=== PATIENT | male | born 1990 | race Caucasian/White ===

== ENCOUNTER 2020-06-29 01:04 | Emergency (ER) | payer OTHER, SELFPAY ==
--- NOTE | 2020-06-29 01:25 | ED.URI ---
HPI - URI/Sore Throat General Chief Complaint: Upper Respiratory Symptoms Stated Complaint: Cough Time Seen by Provider: 06/29/20 01:25 Source: patient Mode of arrival: ambulatory Limitations: no limitations History of Present Illness HPI Narrative: This is a 30-year-old male who presents with complaints of cough and is an every day heavy smoker but denies any associated sore throat, fevers, chills, Shortness of breath, COVID-19 exposure. Related Data Allergies Allergy/AdvReac Type Severity Reaction Status Date / Time No Known Allergies Allergy Unverified 05/01/20 17:05 Review of Systems Review of Systems: Pertinent positives and negatives as stated in HPI and 10 point review of systems is otherwise negative [facility] Past Medical History Source: nursing notes reviewed Social History Social History Advance Directives: No Physical Exam Vital Signs: Vital Signs: Last Vital Signs Temp 98 F 06/29/20 01:40 Pulse 75 06/29/20 01:40 Resp 14 06/29/20 01:40 BP 123/76 06/29/20 01:40 Pulse Ox 99 06/29/20 01:40 Body Mass Index 23.0 VITAL SIGNS: Reviewed. GENERAL: Well developed, well nourished, in no acute distress. HEAD: Normocephalic/atraumatic, EYES: PERRLA, EOMI intact without pain, no nystagmus/pallor/icterus noted EARS: Ext canals without abnormality, TMs non-bulging and non-erythematous NOSE: Nares patent bilateral OROPHARYNX: no oral lesions noted, posterior pharynx clear and non-erythematous without noted tonsillar enlargement/erythema/exudates NECK: Supple, no adenopathy LUNGS: Normal breath sounds. No adventitious sounds or accessory muscle use. SpO2<99> CARDIOVASCULAR: Regular rate and rhythm without noted murmurs, no JVD or lower extremity edema. ABDOMEN: Soft, non-tender, non-distended with bowel sounds. No rigidity. No guarding. No palpable masses or hernias noted MUSCULOSKELETAL: No tenderness, deformities, or effusions noted on gross inspection. EXTREMITIES: No cyanosis, clubbing or edema. SKIN: Inspection of the skin reveals no rashes, ulcerations, jaundice, pallor, or petechiae. NEUROLOGIC: Alert and oriented x 4. Strength and sensation to light touch were grossly intact x 4. Course Course Course Narrative: This is a 30-year-old male with history and clinical presentation most likely non infectious bronchitis due to smoking history, however patient wishes to be swabbed for COVID-19 and this was performed. Patient was discharged as he was not experiencing any shortness of breath and was not observed to be febrile or hypoxic. Discharge Plan Discharge Clinical Impression: Cough Patient Disposition: Home, Self-Care Instructions: Chronic Cough (ED) Additional Instructions: You have been COVID-19 tested today and are required to self quarantine until you were called with the results. During this. You must self quarantine, again, and follow all state recommendations regarding COVID-19 testing. To treat any body aches and/or temperatures greater than 100.4 with [id number] Tylenol or ibuprofen as directed on the outside packaging. Continue to increase fluid hydration especially with water. The patient and/or family acknowledge understanding of results (as applicable), diagnosis, treatment plan, need for follow up, and symptoms that should prompt a return to the emergency room. Referrals: Physician,Unknown [Primary Care Provider] - 2 days Interventions: ED Discharge Assessment Last Done: 06/29/20 02:13 Discharge Date/Time: 06/29/20 02:13
[2020-06-29 01:40] VITALS: BP 123/76; PULSE 75; RESP 14; TEMP 36.6; O2SAT 99; BMI 23.0
== END 2020-06-29 02:13 | disposition home or self-care (01) ==
PROVIDERS: Emergency Provider Student in an Organized Health Care Education/Training Program
DX: R05 Cough (principal); Z20.828 Contact with and (suspected) exposure to other viral communicable diseases
CPT/HCPCS: 99283; U0003

== ENCOUNTER 2020-07-04 23:06 | Emergency (ER) | payer OTHER, SELFPAY ==
[2020-07-04 23:12] VITALS: BP 159/86; PULSE 83; RESP 16; TEMP 37; O2SAT 97; BMI 22.4
--- NOTE | 2020-07-05 00:04 | PC.NURSE ---
AT BEDSIDE SPEAKING WITH PATIENT.
--- NOTE | 2020-07-05 00:08 | ED_ITS ---
HPI - General Adult General Chief complaint: General Medical Stated complaint: NOSE BLEED Time Seen by Provider: 07/04/20 23:11 Source: patient Mode of arrival: ambulatory Limitations: no limitations History of Present Illness HPI narrative: 30-year-old male otherwise healthy, was seen recently for bronchitis like symptoms, patient has been having congested nose sneezing and coughing, for the past 2 days has been having mucus tinged with streaks of blood coming out of his nose, but no héctor bleeding from the nose, declined any trauma to the nose, patient was concerned because yesterday when he cleared his nose had coincide blood clots coming out from his nose, patient is not taking any medication in particular no blood thinners or aspirin. Patient otherwise has no symptoms. Related Data Previous Rx's Medication Instructions Recorded oxymetazoline [Afrin 2 spray INTRANASAL Q12H PRN 3 Days 07/05/20 (oxymetazoline)] #15 ml Allergies Allergy/AdvReac Type Severity Reaction Status Date / Time No Known Allergies Allergy Unverified 05/01/20 17:05 Review of Systems Review of Systems: All other systems are reviewed and are negative Constitutional: Reports as per HPI and Reports no additional constitutional complaints Eyes: Reports as per HPI and Reports no additional eye complaints Reports system reviewed and no additional complaints, except as documented Cardiovascular: Reports as per HPI and Reports no additional cardiovascular complaints Respiratory: Reports as per HPI and Reports no additional respiratory complaints Gastrointestinal: Reports as per HPI and Reports no additional gastrointestinal complaints Genitourinary: Reports no additional female genitourinary complaints Musculoskeletal: Reports no additional musculoskeletal complaints Skin/Breast: Reports system reviewed and no additional complaints, except as docu Psychiatric: Reports no additional psychiatric complaints Endocrine: Reports no additional endocrine complaints Hematologic/Lymphatic: Reports no additional hematologic/lymphatic complaints Allergic/Immunologic: Reports no additional allergic/immunologic complaints Reports system reviewed and no additional complaints, except as documented and Reports Abnormal speech present [facility] Social History Social History Advance Directives: No Physical Exam Vital Signs: Vital Signs: Last Vital Signs Temp 98.6 F 07/04/20 23:12 Pulse 83 07/04/20 23:12 Resp 16 07/04/20 23:12 BP 159/86 H 07/04/20 23:12 Pulse Ox 97 07/04/20 23:12 Body Mass Index 22.4 Vital signs have been reviewed as normal and appeared to be correct. Blood pressure on the high range. Heart rate normal. Respiration rate normal. Temperature normal. Oxygen saturation normal. Appearance: Alert. Oriented X3. No acute distress. Head: Normal external exam. Normocephalic. Atraumatic. No Salmon signs noted. No raccoon eyes noted Eyes: PERRLA. EOMI. Conjunctiva and sclera normal. Eyelids normal. ENT: EAC normal. TM's Normal. Pharynx normal. Uvula midline. Moist mucous membranes. No trismus noted. No drooling noted. No muffled voice noted. No blood, no dry blood, no blood clots in either nostril. Neck: Normal inspection. Neck supple. FROM. No adenopathy. Thyroid Normal. No meningeal signs. No neck mass noted. CVS: Normal heart rate and rhythm. Heart sound normal. No murmurs noted. Pulses normal throughout. Respiratory: No respiratory distress. Painless inspiration. Breath sounds normal. No wheezes/rales/rhonchi noted. Chest nontender. No accessory muscle usage noted or decreased air movement noted. Abdomen: Soft and nontender. Bowel sounds normal in all 4 quadrants. No distention noted. No organomegaly noted. No visible injury noted. Back: No CVA tenderness. Full range of motion noted. Skin: Skin warm and dry. Normal skin color. Normal skin turgor. No rashes/lesions/lacerations noted. Extremities: No lower extremity edema. Extremities exhibit normal range of motion. Extremities nontender. Neuro: Oriented X 3. No motor deficit. No sensory deficit. Reflexes normal. Medical Decision Making MDM Narrative Medical decision making narrative: 2 days of nasal congestion, patient had recent negative COVID testing. Will reassure, sent home on nasal decongestant. Discharge Plan Discharge Clinical Impression: Nasal congestion Patient Disposition: Home, Self-Care Instructions: Nosebleed (ED) Prescriptions: New Afrin (oxymetazoline) 0.05 % mist 2 spray intranasal Q12H PRN (Reason: nasal congestion) 3 Days Qty: 15 RF: 0 Referrals: Physician,None [Primary Care Provider] - 2 days
== END 2020-07-05 00:22 | disposition home or self-care (01) ==
PROVIDERS: Emergency Provider Emergency Medicine
DX: R09.81 Nasal congestion (principal); Z79.899 Other long term (current) drug therapy
CPT/HCPCS: 99283

== ENCOUNTER 2020-07-09 01:49 | Emergency (ER) | payer OTHER, SELFPAY ==
[2020-07-09 01:52] VITALS: BP 138/74; PULSE 69; RESP 16; TEMP 36; O2SAT 100; BMI 22.4
--- NOTE | 2020-07-09 02:43 | PC.NURSE ---
at bedside for primary eval.
--- NOTE | 2020-07-09 02:47 | ED_ITS ---
HPI - Dental/Oral General Chief complaint: Dental/Oral Stated complaint: DENTAL PAIN Time Seen by Provider: 07/09/20 02:45 Source: patient Mode of arrival: ambulatory History of Present Illness HPI Narrative: Patient states was eating something hard and cracked his tooth since then has been having pain. Approximately 1-2 days. Cannot wait for dentists open up in the morning and came to emergency department. MD Complaint: tooth pain Location: Tooth # (32) Onset (ago): day(s) Duration: constant Severity scale (1-10): 7 Relieving factors: nothing Related Data Previous Rx's Medication Instructions Recorded oxymetazoline [Afrin 2 spray INTRANASAL Q12H PRN 3 Days 07/05/20 (oxymetazoline)] #15 ml amoxicillin 500 mg PO BID #20 cap 07/09/20 tramadol 50 mg PO BID PRN #14 tab 07/09/20 Allergies Allergy/AdvReac Type Severity Reaction Status Date / Time No Known Allergies Allergy Verified 07/09/20 01:57 Review of Systems Review of Systems: Yes all other systems are reviewed and are negative Constitutional: Comments: Nontoxic-appearing PMFSH Past Medical History Medical History (Updated 07/09/20 @ 02:50 by Armin Phillips DO) Patient denies medical problems Family History Family History (Updated 07/09/20 @ 02:48 by Armin Phillips DO) Other Family history non-contributory Social History Social History (Updated 07/09/20 @ 02:48 by Armin Phillips DO) Household Members: Family Advance Directives: No Physical Exam Vital Signs: Vital Signs: Last Vital Signs Temp 96.8 F 07/09/20 01:52 Pulse 69 07/09/20 01:52 Resp 16 07/09/20 01:52 BP 138/74 07/09/20 01:52 Pulse Ox 100 07/09/20 01:52 Body Mass Index 22.4 HENMT: Teeth and gingiva: gingiva normal (Tooth cervical number 30 to cracked no erythema no bleeding no abscess), no bridges, no caries and no dentures Teeth image: 1. 2. MDM - Dental/Oral MDM Narrative Medical decision making narrative: 30-year-old with right dental pain no signs of abscess Discharge Plan Discharge Clinical Impression: Dental caries Patient Disposition: Home, Self-Care Instructions: Toothache (ED) Prescriptions: New amoxicillin 500 mg capsule 500 mg PO BID Qty: 20 RF: 0 tramadol 50 mg tablet 50 mg PO BID PRN (Reason: pain) Qty: 14 RF: 0 No Action Afrin (oxymetazoline) 0.05 % mist 2 spray intranasal Q12H PRN (Reason: nasal congestion) 3 Days Qty: 15 RF: 0 Referrals: [facility] [Provider Group] - 2 days Interventions: ED Discharge Assessment Last Done: 07/09/20 03:40 Discharge Date/Time: 07/09/20 03:42
[2020-07-09] MEDS: Amoxicillin 500 MG CAPSULE PO (02:54)
[2020-07-09] MEDS: traMADoL HCL 50 MG TABLET PO (02:54)
--- NOTE | 2020-07-09 02:54 | PC.NURSE ---
Pt medicated per EMAR, refusing Toradol at this time, states I can't do needles. aware.
== END 2020-07-09 03:42 | disposition home or self-care (01) ==
LOC: HO.ED 03:27
PROVIDERS: Emergency Provider Emergency Medicine
DX: K02.9 Dental caries, unspecified (principal); Z79.899 Other long term (current) drug therapy
CPT/HCPCS: 96372; 99283; 99284

== ENCOUNTER 2020-07-30 23:47 | Emergency (ER) | payer OTHER, SELFPAY ==
[2020-07-31 00:13] VITALS: BP 135/82; PULSE 76; RESP 16; TEMP 36.7; O2SAT 99; BMI 22.4
--- NOTE | 2020-07-31 00:36 | ED_ITS ---
HPI - Headache General Chief Complaint: Headache Stated Complaint: headache,dizziness Time Seen by Provider: 07/31/20 00:00 Source: patient Mode of arrival: ambulatory Limitations: no limitations History of Present Illness HPI Narrative: This is a 30-year-old male who presents with complaints of headache since running down the stairs and bumping his head on the wall without loss of consciousness on Tuesday but has continued to perform all daily activities without difficulties and denies any fevers, chills, neck stiffness, photosensitivity, speech/tearing/gait changes. In addition, patient stated that he was experiencing some sore throat and states that his girlfriend had strep throat approximately 1-2 weeks ago. Related Data Previous Rx's Medication Instructions Recorded oxymetazoline [Afrin 2 spray INTRANASAL Q12H PRN 3 Days 07/05/20 (oxymetazoline)] #15 ml amoxicillin 500 mg PO BID #20 cap 07/09/20 tramadol 50 mg PO BID PRN #14 tab 07/09/20 Allergies Allergy/AdvReac Type Severity Reaction Status Date / Time No Known Allergies Allergy Verified 07/09/20 01:57 Review of Systems Review of Systems: Pertinent positives and negatives as stated in the HPI and 10 point review of systems is otherwise negative. [facility] Past Medical History Source: nursing notes reviewed Medical History Patient denies medical problems Family History Family History Other Family history non-contributory Social History Social History Household Members: Family Alcohol intake: never Smoking Status: Never smoker Substance Use Type: Marijuana Substance Use Frequency: Occasionally Last Used Substance: Weeks (ago) Any prior treatment program specific to substance use: No Advance Directives: No Physical Exam Vital Signs: Vital Signs: Last Vital Signs Temp 98.0 F 07/31/20 00:13 Pulse 75 07/31/20 01:56 Resp 16 07/31/20 01:56 BP 110/71 07/31/20 01:56 Pulse Ox 98 07/31/20 01:56 Body Mass Index 22.4 VITAL SIGNS: Reviewed. GENERAL: Well developed, well nourished, in no acute distress. HEAD: Normocephalic/atraumatic, EYES: PERRLA, EOMI intact without pain, no nystagmus/pallor/icterus noted EARS: Ext canals without abnormality, TMs non-bulging and non-erythematous NOSE: Nares patent bilateral OROPHARYNX: no oral lesions noted, posterior pharynx clear and non-erythematous without noted tonsillar enlargement/erythema/exudates NECK: Supple, no adenopathy LUNGS: Normal breath sounds. No adventitious sounds or accessory muscle use. SpO2<99> CARDIOVASCULAR: Regular rate and rhythm without noted murmurs, no JVD or lower extremity edema. ABDOMEN: Soft, non-tender, non-distended with bowel sounds. No rigidity. No guarding. No palpable masses or hernias noted MUSCULOSKELETAL: No tenderness, deformities, or effusions noted on gross inspection. EXTREMITIES: No cyanosis, clubbing or edema. SKIN: Inspection of the skin reveals no rashes, ulcerations, jaundice, pallor, or petechiae. NEUROLOGIC: Alert and oriented x 4. Strength and sensation to light touch were grossly intact x 4, cerebellar testing is intact, steady gait, cranial nerves 2- 12 are grossly intact. Course Course Course Narrative: This is a 30-year-old male with history and clinical presentation consistent with headache without evidence of focal deficits or suggestion viral syndrome or bacterial infection. Doubt strep throat, but will swab. Patient provided with combination analgesics for headache. On re-evaluation patient has had symptomatic improvement of his headache and the rapid strep is negative. Discharge Plan Discharge Clinical Impression: Headache Qualifiers: Headache type: unspecified Headache chronicity pattern: acute headache Intractability: not intractable Qualified Code(s): R51.9 - Headache, unspecified Patient Disposition: Home, Self-Care Instructions: General Headache (ED) Additional Instructions: 1. Tylenol 1000 mg, orally, every 6 hours as needed for pain control. Do not exceed 4000 mg within 24 hours. 2. Ibuprofen 400 mg, orally with milk or food, every 6 hours as needed for pain control. 3. Increase fluid hydration especially with water. 4. Follow-up with your primary care provider for further evaluation and management. The patient and/or family acknowledge understanding of results (as applicable), diagnosis, treatment plan, need for follow up, and symptoms that should prompt a return to the emergency room. Prescriptions: No Action amoxicillin 500 mg capsule 500 mg PO BID Qty: 20 RF: 0 tramadol 50 mg tablet 50 mg PO BID PRN (Reason: pain) Qty: 14 RF: 0 Afrin (oxymetazoline) 0.05 % mist 2 spray intranasal Q12H PRN (Reason: nasal congestion) 3 Days Qty: 15 RF: 0 Referrals: Physician,None [Primary Care Provider] - 2 days
[2020-07-31] MEDS: Acetaminophen 325 MG TABLET 975 MG PO (01:35)
[2020-07-31] MEDS: Magnesium Hydrox/Alum Hydrox 30 ML ORAL.SUSP PO (01:36)
[2020-07-31] MEDS: Lidocaine HCl Viscous 2 % 15 ML SOLUTION 10 ML MUCOUS MEM (01:36)
[2020-07-31] MEDS: Ketorolac Tromethamine 15 MG/ML VIAL IM (01:37)
[2020-07-31 01:56] VITALS: BP 110/71; PULSE 75; RESP 16; O2SAT 98
[2020-07-31 02:00] VITALS: BP 114/60; PULSE 68; RESP 16; O2SAT 98
== END 2020-07-31 02:32 | disposition home or self-care (01) ==
PROVIDERS: Emergency Provider Student in an Organized Health Care Education/Training Program
DX: R51.9 Headache, unspecified (principal); R42 Dizziness and giddiness; F12.90 Cannabis use, unspecified, uncomplicated; Z79.899 Other long term (current) drug therapy
CPT/HCPCS: 87071; 87880; 96372; 99284; J1885

== ENCOUNTER 2020-08-24 19:08 | Emergency (ER) | payer OTHER, SELFPAY ==
[2020-08-24 19:31] VITALS: BP 138/78; PULSE 85; RESP 16; TEMP 37.1; O2SAT 100; BMI 23.0
[2020-08-24 20:00] VITALS: BP 123/87; PULSE 78; RESP 16; TEMP 37.2; O2SAT 98
--- NOTE | 2020-08-24 20:15 | PC.NURSE ---
pt refused covid and strep swab. you did this shit last time. Are you really not going to help me? pt educated on current standard of care for URI.
--- NOTE | 2020-08-24 20:46 | ED_ITS ---
HPI - General Adult General Chief complaint: General Medical Stated complaint: SORE THROAT Time Seen by Provider: 08/24/20 20:03 Source: patient Mode of arrival: ambulatory Limitations: no limitations History of Present Illness HPI narrative: 30-year-old male otherwise healthy presented with sore throat started few weeks ago, patient was seen in the emergency department 4 times before today's visit for similar symptoms, patient had negative COVID and negative rapid strep, patient still concerned that something else going on (patient searched on Google and suggested throat cancer). Patient refuse COVID testing and rapid strep testing today. Related Data Previous Rx's Medication Instructions Recorded oxymetazoline [Afrin 2 spray INTRANASAL Q12H PRN 3 Days 07/05/20 (oxymetazoline)] #15 ml amoxicillin 500 mg PO BID #20 cap 07/09/20 tramadol 50 mg PO BID PRN #14 tab 07/09/20 Allergies Allergy/AdvReac Type Severity Reaction Status Date / Time No Known Allergies Allergy Verified 07/09/20 01:57 Review of Systems Review of Systems: All other systems are reviewed and are negative Constitutional: Reports as per HPI and Reports no additional constitutional complaints Eyes: Reports as per HPI and Reports no additional eye complaints Reports system reviewed and no additional complaints, except as documented Cardiovascular: Reports as per HPI and Reports no additional cardiovascular complaints Respiratory: Reports as per HPI and Reports no additional respiratory complaints Gastrointestinal: Reports as per HPI and Reports no additional gastrointestinal complaints Genitourinary: Reports no additional female genitourinary complaints Musculoskeletal: Reports no additional musculoskeletal complaints Skin/Breast: Reports system reviewed and no additional complaints, except as docu Psychiatric: Reports no additional psychiatric complaints Endocrine: Reports no additional endocrine complaints Hematologic/Lymphatic: Reports no additional hematologic/lymphatic complaints Allergic/Immunologic: Reports no additional allergic/immunologic complaints Reports system reviewed and no additional complaints, except as documented and Reports Abnormal speech present [facility] Past Medical History Medical History Patient denies medical problems Family History Family History Other Family history non-contributory Social History Social History Household Members: Family Alcohol intake: never Smoking Status: Never smoker Substance Use Type: Marijuana Advance Directives: No Physical Exam Vital Signs: Vital Signs: Last Vital Signs Temp 98.8 F 08/24/20 19:31 Pulse 85 08/24/20 19:31 Resp 16 08/24/20 19:31 BP 138/78 08/24/20 19:31 Pulse Ox 100 08/24/20 19:31 Body Mass Index 23.0 Vital signs have been reviewed as normal and appeared to be correct. Blood pressure in the high range. Heart rate normal. Respiration rate normal. Temperature normal. Oxygen saturation normal. Appearance: Alert. Oriented X3. No acute distress. Head: Normal external exam. Normocephalic. Atraumatic. No Salmon signs noted. No raccoon eyes noted Eyes: PERRLA. EOMI. Conjunctiva and sclera normal. Eyelids normal. ENT: EAC normal. TM's Normal. Pharynx normal. Uvula midline. Moist mucous membranes. No trismus noted. No drooling noted. No muffled voice noted. Neck: Normal inspection. Neck supple. FROM. No adenopathy. Thyroid Normal. No meningeal signs. No neck mass noted. CVS: Normal heart rate and rhythm. Heart sound normal. No murmurs noted. Pulses normal throughout. Respiratory: No respiratory distress. Painless inspiration. Breath sounds normal. No wheezes/rales/rhonchi noted. Chest nontender. No accessory muscle usage noted or decreased air movement noted. Abdomen: Soft and nontender. Bowel sounds normal in all 4 quadrants. No distention noted. No organomegaly noted. No visible injury noted. Back: No CVA tenderness. Full range of motion noted. Skin: Skin warm and dry. Normal skin color. Normal skin turgor. No rashes/lesions/lacerations noted. Extremities: No lower extremity edema. Extremities exhibit normal range of motion. Extremities nontender. Neuro: Oriented X 3. No motor deficit. No sensory deficit. Reflexes normal. Course Course Course Narrative: 30-year-old male otherwise healthy had multiple ED visits for ENT related symptoms, patient was doing his Internet search which suggested throat cancer the patient, no family history of cancer. Plan is to reassure the patient and having patient to fully evaluated by ENT as an outpatient. Patient refused any further testing for COVID/strep throat today. Patient finished course of amoxicillin recently. Discharge Plan Discharge Clinical Impression: Acute sore throat Patient Disposition: Home, Self-Care Additional Instructions: Follow-up with ENT doctor, call the doctor and make an appointment as an outpatient. Prescriptions: No Action amoxicillin 500 mg capsule 500 mg PO BID Qty: 20 RF: 0 tramadol 50 mg tablet 50 mg PO BID PRN (Reason: pain) Qty: 14 RF: 0 Afrin (oxymetazoline) 0.05 % mist 2 spray intranasal Q12H PRN (Reason: nasal congestion) 3 Days Qty: 15 RF: 0 Referrals: Nick Foley [Physician] - 2 days
== END 2020-08-24 21:10 | disposition home or self-care (01) ==
PROVIDERS: Emergency Provider Emergency Medicine
DX: J02.9 Acute pharyngitis, unspecified (principal); Z79.899 Other long term (current) drug therapy; Z20.828 Contact with and (suspected) exposure to other viral communicable diseases
CPT/HCPCS: 99283; 99284

== ENCOUNTER 2020-09-24 09:47 | Emergency (ER) | payer OTHER, SELFPAY ==
[2020-09-24 11:19] VITALS: BP 128/76; PULSE 70; RESP 20; TEMP 37.3; O2SAT 98; BMI 23.7
--- NOTE | 2020-09-24 11:55 | ED_ITS ---
HPI - Dental/Oral General Chief complaint: Dental/Oral Stated complaint: DENTAL PAIN Source: patient Mode of arrival: ambulatory Limitations: no limitations History of Present Illness HPI Narrative: Patient presents to ED for right upper molar pain. Patient states his right upper molar is cracked and needs to be extracted. Patient has appointment with dentist next week Tuesday. Patient states slight upper facial swelling. Patient states no fever or chills. Related Data Previous Rx's Medication Instructions Recorded oxymetazoline [Afrin 2 spray INTRANASAL Q12H PRN 3 Days 07/05/20 (oxymetazoline)] #15 ml amoxicillin 500 mg PO BID #20 cap 07/09/20 tramadol 50 mg PO BID PRN #14 tab 07/09/20 amoxicillin-pot clavulanate 1 tab PO Q12H 10 Days #20 tab 09/24/20 [Augmentin] naproxen 500 mg PO BID PRN #20 tab 09/24/20 oxycodone-acetaminophen [Percocet] 1 tab PO TID PRN #9 tab 09/24/20 Allergies Allergy/AdvReac Type Severity Reaction Status Date / Time No Known Allergies Allergy Verified 07/09/20 01:57 Review of Systems Review of Systems: Yes all other systems are reviewed and are negative Constitutional: Constitutional: Reports as per HPI and Reports no additional constitutional complaints Eyes: Eyes: Reports as per HPI and Reports no additional eye complaints ENT: Reports system reviewed and no additional complaints, except as documented and Reports as per HPI Comments: Dental pain Cardiovascular: Cardiovascular: Reports as per HPI and Reports no additional cardiovascular complaints Respiratory: Respiratory: Reports as per HPI and Reports no additional respiratory complaints Gastrointestinal: Gastrointestinal: Reports as per HPI and Reports no additional gastrointestinal complaints Genitourinary: Genitourinary: Reports no additional male genitourinary complaints and Reports as per HPI Musculoskeletal: Musculoskeletal: Reports no additional musculoskeletal complaints and Reports as per HPI Integumentary/Breasts: Skin/Breast: Reports system reviewed and no additional complaints, except as docu and Reports as per HPI Neurologic: Reports system reviewed and no additional complaints, except as documented and Reports as per HPI Psychiatric: Psychiatric: Reports no additional psychiatric complaints and Reports as per HPI PMF Past Medical History Medical History Patient denies medical problems Family History Family History Other Family history non-contributory Social History Social History Household Members: Family Alcohol intake: unknown Smoking Status: Current every day smoker Smoked in Last 30 Days: No Use of substances other than those prescribed or required for medical reasons: No Substance Use Type: Marijuana Advance Directives: No Advance Directives Information Provided: No Physical Exam Vital Signs: Vital Signs: Last Vital Signs Temp 99.1 F 09/24/20 11:19 Pulse 70 09/24/20 11:19 Resp 20 09/24/20 11:19 BP 128/76 09/24/20 11:19 Pulse Ox 98 09/24/20 11:19 Body Mass Index 23.7 Const: General: cooperative, healthy appearing, comfortable, no acute distress, well developed, alert and awake Orientation/consciousness: patient oriented x3 HENMT: Other: Right upper molar 5. Is cracked with some yellow collection. Negative for gum swelling or redness. Patient does have other teeth with poor dentition and sticking. Face negative for mass on palpation, redness, fluctulance, or obvious swelling. tonsils negative for erythema, exudates, or signs of peritonsillar absecss. negative for neck swelling. uvula is midline. Head: Yes normal to inspection, Yes No palpable skull fracture present, Yes normocephalic and Yes atraumatic Teeth and gingiva: dentures and poor dentition (Multiple tooth with decay. Right upper molar tooth 5 is cracked.) Eyes: General: appearance normal, both eyes and all related structures Neck: Neck: Yes normal visual inspection, Yes no lymphadenopathy, Yes no meningeal signs, Yes trachea midline and No tender Chest: Chest palpation & inspection: normal inspection of the chest and normal palpation of entire chest wall Resp: Effort & Inspection: normal respiratory effort and able to speak in complete sentences Auscultation: clear to auscultation bilaterally Cardio: Jugular venous distension: no JVD Heart sounds: S1 normal heart sound present and S2 normal heart sound present GI: Inspection: Yes normal to inspection Palpation (GI): Soft to palpation, not firm, nontender, no guarding and not rigid : General: No CVA tenderness and Yes no CVA tenderness Back/Spine/Pelvis: Back: no CVA tenderness, No CVA tenderness and No back tenderness Skin: General skin exam: no rashes or lesions noted and elasticity normal Neuro: General: patient oriented x3, no meningeal signs and CN's II-XI intact bilaterally Cranial nerves: Yes CN's II-XII intact bilaterally Extrem: General: Yes normal to inspection and Yes full ROM Psych: Appearance: grossly normal, well kempt and not disheveled Course Course Course Narrative: Patient has cracked tooth that will need to be extracted. Patient given pain medication here Reevaluation(s) Reevaluation #1: Patient discharged with pain medication and antibiotics. Patient informed to follow-up with his dentist for extraction. Negative for signs of gum abscess. Negative for signs of peritonsillar abscess. Negative for signs of facial abscess. Time: 12:02 MDM - Dental/Oral MDM Narrative Medical decision making narrative: Right cracked tooth. Dental pain Discharge Plan Discharge Clinical Impression: Toothache, Cracked tooth Patient Disposition: Home, Self-Care Instructions: Toothache (ED) Additional Instructions: Return to the ED immediately for any drooling, severe pain, worsening facial swelling, or any other concerning symptoms. Please follow-up with the dentist for extraction. Do not take Percocet at work or while driving. Side effect of drowsiness Prescriptions: New amoxicillin-pot clavulanate [Augmentin] 875-125 mg tablet 1 tab PO Q12H 10 Days Qty: 20 RF: 0 naproxen 500 mg tablet 500 mg PO BID PRN (Reason: pain) Qty: 20 RF: 0 oxycodone-acetaminophen [Percocet] 5-325 mg tablet 1 tab PO TID PRN (Reason: pain (scale score 7-10)) Qty: 9 RF: 0 No Action amoxicillin 500 mg capsule 500 mg PO BID Qty: 20 RF: 0 tramadol 50 mg tablet 50 mg PO BID PRN (Reason: pain) Qty: 14 RF: 0 Afrin (oxymetazoline) 0.05 % mist 2 spray intranasal Q12H PRN (Reason: nasal congestion) 3 Days Qty: 15 RF: 0 Stand Alone Forms: Work/School Release Interventions: ED Discharge Assessment Last Done: 09/24/20 12:16 Discharge Date/Time: 09/24/20 12:17 Print Language: Romanian
[2020-09-24] MEDS: oxyCODONE HCl Immed Release 5 MG TABLET PO (12:05)
== END 2020-09-24 12:17 | disposition home or self-care (01) ==
PROVIDERS: Emergency Provider Emergency Medicine Emergency Medical Services
DX: K08.89 Other specified disorders of teeth and supporting structures (principal); K03.81 Cracked tooth; F17.210 Nicotine dependence, cigarettes, uncomplicated
CPT/HCPCS: 99283

== ENCOUNTER 2020-11-09 17:56 | Emergency (ER) | payer OTHER, SELFPAY ==
[2020-11-09 18:15] VITALS: BP 137/61; PULSE 70; RESP 18; TEMP 36.7; O2SAT 98; BMI 24.4
--- NOTE | 2020-11-09 20:28 | ED.DENTAL ---
HPI - Dental/Oral General Chief complaint: Dental/Oral Stated complaint: dental pain Time Seen by Provider: 11/09/20 20:28 History of Present Illness HPI Narrative: Patient complains of both left and right dental pain after multiple teeth were extracted on both sides last week, he was given some pain meds but they ran out, he denies fever chills he has no difficulty breathing or swallowing no swelling under the tongue, he is taking an antibiotic and can follow with his dentist Related Data Previous Rx's Medication Instructions Recorded oxymetazoline [Afrin 2 spray INTRANASAL Q12H PRN 3 Days 07/05/20 (oxymetazoline)] #15 ml amoxicillin 500 mg PO BID #20 cap 07/09/20 tramadol 50 mg PO BID PRN #14 tab 07/09/20 amoxicillin-pot clavulanate 1 tab PO Q12H 10 Days #20 tab 09/24/20 [Augmentin] naproxen 500 mg PO BID PRN #20 tab 09/24/20 oxycodone-acetaminophen [Percocet] 1 tab PO TID PRN #9 tab 09/24/20 oxycodone-acetaminophen [Percocet] 1 tab PO Q4-6H PRN #14 tab 11/09/20 Allergies Allergy/AdvReac Type Severity Reaction Status Date / Time No Known Allergies Allergy Verified 07/09/20 01:57 Review of Systems Review of Systems: Positive for dental pain Negatives are no fever no chills no dizziness no weakness no numbness no difficulty breathing or swallowing no headache no skin rash PMFSH Past Medical History Source: nursing notes reviewed Medical History Patient denies medical problems Family History Family History Other Family history non-contributory Social History Social History Household Members: Family Alcohol intake: never Smoking Status: Current every day smoker Smoked in Last 30 Days: No Substance Use Type: Marijuana Any prior treatment program specific to substance use: No Advance Directives: No Advance Directives Information Provided: Yes Physical Exam Vital Signs: Vital Signs: Last Vital Signs Temp 98.1 F 11/09/20 18:15 Pulse 70 11/09/20 18:15 Resp 18 11/09/20 18:15 BP 137/61 11/09/20 18:15 Pulse Ox 98 11/09/20 18:15 Body Mass Index 24.4 General appearance no acute distress, and cooperative but uncomfortable The dental exam is there is no trismus there is no swelling under the tongue there is no impairment of breathing or swallowing there is no fluctuant gum abscess the sutures are in place over the sites of dental extraction, no bleeding Pharynx is clear Neck is supple Respiratory no distress Extremities no rash Course Course Course Narrative: Patient is given a prescription for Percocet and advised to follow with his dentist and continue the antibiotic Discharge Plan Discharge Clinical Impression: Pain, dental Patient Disposition: Home, Self-Care Additional Instructions: Continue your antibiotic Follow with her dentist Return any concerns Prescriptions: New oxycodone-acetaminophen [Percocet] 5-325 mg tablet 1 tab PO Q4-6H PRN (Reason: pain) Qty: 14 RF: 0 No Action amoxicillin 500 mg capsule 500 mg PO BID Qty: 20 RF: 0 tramadol 50 mg tablet 50 mg PO BID PRN (Reason: pain) Qty: 14 RF: 0 Afrin (oxymetazoline) 0.05 % mist 2 spray intranasal Q12H PRN (Reason: nasal congestion) 3 Days Qty: 15 RF: 0 amoxicillin-pot clavulanate [Augmentin] 875-125 mg tablet 1 tab PO Q12H 10 Days Qty: 20 RF: 0 naproxen 500 mg tablet 500 mg PO BID PRN (Reason: pain) Qty: 20 RF: 0 oxycodone-acetaminophen [Percocet] 5-325 mg tablet 1 tab PO TID PRN (Reason: pain (scale score 7-10)) Qty: 9 RF: 0 Interventions: ED Discharge Assessment Last Done: 11/09/20 20:44 Discharge Date/Time: 11/09/20 21:13
== END 2020-11-09 21:13 | disposition home or self-care (01) ==
PROVIDERS: Emergency Provider Emergency Medicine Emergency Medical Services; PCP Internal Medicine
DX: K08.89 Other specified disorders of teeth and supporting structures (principal); F17.200 Nicotine dependence, unspecified, uncomplicated; Z71.6 Tobacco abuse counseling; Z79.899 Other long term (current) drug therapy
CPT/HCPCS: 99284

== ENCOUNTER 2021-07-19 09:53 | Emergency (ER) | payer OTHER, SELFPAY ==
[2021-07-19 11:10] VITALS: BP 137/76; PULSE 78; RESP 18; TEMP 36.7; O2SAT 98; BMI 27.1
[2021-07-19 11:39] LABS: IDNOW Serial# 9DD0AD1C; Strep A Nucleic Acid Negative (Negative)
[2021-07-19 11:41] LABS: COVID-19 Test Negative (Negative)
== END 2021-07-19 11:59 | disposition left against medical advice (07) ==
LOC: HO.ED 11:59
PROVIDERS: Emergency Provider Emergency Medicine
DX: J02.9 Acute pharyngitis, unspecified (principal); Z20.822 Contact with and (suspected) exposure to COVID-19
CPT/HCPCS: 36415; 87635; 87651; 99282; 99283

== ENCOUNTER 2021-08-15 10:56 | Emergency (ER) | payer OTHER, SELFPAY ==
--- NOTE | ~2021-08-15 | XR_ITS ---
EXAMINATION: XR CHEST CLINICAL INFORMATION: Cough, chest pain. COMPARISON: Chest radiographs dated 10/31/2018. TECHNIQUE: Frontal view of the chest was obtained. FINDINGS: No significant abnormality is noted involving the heart, lungs, mediastinum, bony thorax or soft tissues. XR/XR chest 1V IMPRESSION: No acute cardiopulmonary process.
[2021-08-15 12:35] VITALS: BP 132/83; PULSE 63; RESP 18; TEMP 36.8; O2SAT 100; BMI 27.1
[2021-08-15 13:42] LABS: COVID-19 Test Positive (Negative); IDNOW Serial# 9DD0AD1C
--- NOTE | 2021-08-15 13:56 | ED_ITS ---
HPI - URI/Sore Throat General Chief Complaint: Upper Respiratory Symptoms Stated Complaint: dehydrated chest pain Time Seen by Provider: 08/15/21 13:56 Source: patient Mode of arrival: ambulatory Limitations: no limitations History of Present Illness HPI Narrative: 31 yo male with no medical history presents to the ER with intermittent sharp chest pains, dry cough, headache, body aches for the last 2 days. He feels ?dehydrated? because his urine is darker than usual this morning. He is not vomiting or having diarrhea. He is eating and drinking normally. He denies any dysuria or blood in his urine. He reports some mild shortness of breath when he is walking around but none at rest. He denies any fevers at home. His girlfriend and children are also home with similar symptoms. He is on vaccinated for COVID-19. MD elicited complaint: cough and other (Body aches) Onset (ago): day(s) (2) Consistency: intermittent Severity: moderate Description of mucous: clear Able to tolerate fluids by mouth: Yes Exacerbating factors: exertion Relieving factors: nothing Context: sick contacts Associated symptoms: myalgias, diaphoresis, headache, nasal congestion, cough, chest pain and shortness of breath Treatments prior to arrival: none Related Data Previous Rx's Medication Instructions Recorded oxymetazoline 0.05 % nasal mist 2 spray INTRANASAL Q12H PRN 3 Days 07/05/20 (Afrin (oxymetazoline)) #15 ml amoxicillin 500 mg capsule 500 mg PO BID #20 cap 07/09/20 tramadol 50 mg tablet 50 mg PO BID PRN #14 tab 07/09/20 amoxicillin 875 mg-potassium 1 tab PO Q12H 10 Days #20 tab 09/24/20 clavulanate 125 mg tablet (Augmentin) naproxen 500 mg tablet 500 mg PO BID PRN #20 tab 09/24/20 oxycodone-acetaminophen 5 mg-325 1 tab PO TID PRN #9 tab 09/24/20 mg tablet (Percocet) oxycodone-acetaminophen 5 mg-325 1 tab PO Q4-6H PRN #14 tab 11/09/20 mg tablet (Percocet) Allergies Allergy/AdvReac Type Severity Reaction Status Date / Time No Known Allergies Allergy Verified 08/15/21 12:35 Review of Systems Review of Systems: Constitutional: No Fever, No Chills ENT/Mouth: No sore throat, No Rhinorrhea, No Swallowing Difficulty Eyes: No Redness Cardiovascular: + Chest Pain, + SOB, No Orthopnea, No Edema Respiratory: + Cough, No Sputum, No Wheezing, No dyspnea Gastrointestinal: No Nausea, No Vomiting, No Diarrhea, No abdominal Pain Genitourinary: No Dysuria, No Urinary Frequency, No Hematuria Musculoskeletal: No joint pain, No Myalgias Skin: No Skin Lesions, No rash Neuro: + Weakness, No Dizziness, No Headache Heme/Lymph: No Lymphadenopathy PMFSH Past Medical History Medical History Patient denies medical problems Family History Family History Other Family history non-contributory Social History Social History Household Members: Family Alcohol intake: never Substance Use Type: Marijuana Advance Directives: No Advance Directives Information Provided: No Physical Exam Vital Signs: Vital Signs: Last Vital Signs Temp 98.2 F 08/15/21 12:35 Pulse 63 08/15/21 12:35 Resp 18 08/15/21 12:35 BP 132/83 08/15/21 12:35 Pulse Ox 100 08/15/21 12:35 BMI result Body Mass Index 27.1 Appearance: Alert. Oriented X3. No acute distress. Eyes: Pupils equal, round and reactive to light. ENT: Pharynx normal. Moist mucous membranes Neck: Normal inspection. Neck supple. CVS: Normal heart rate and rhythm. Pulses normal. Respiratory: No respiratory distress. Breath sounds normal. Skin: Skin warm and dry. Normal skin color. Normal skin turgor. No rashes. Extremities: No lower extremity edema. Normal inspection, normal range of motion x4. Neuro: Oriented X 3. Grossly normal, nonfocal Course Course Course Narrative: 31-year-old otherwise healthy male who is on backs of her COVID-19 presents with intermittent chest pains with dry cough, headaches, body aches. On arrival he appears nontoxic and is vital signs are within normal limits with a SpO2 100% on room air. His lungs are clear on exam. His chest x- ray is normal and his COVID-19 rapid antigen test is positive. Patient counseled on his diagnosis and symptomatic management. Stable for discharge home with supportive care. MDM - URI/Sore Throat Lab Data Labs: Lab Results 08/15/21 Range/Units 12:41 COVID-19 ([facility]) Positive A (Negative) COVID-19 Clin Com See Note Critical Care Time Critical Care Time Critical Care Time: No Discharge Plan Discharge Clinical Impression: COVID-19 Patient Disposition: Home, Self-Care Instructions: Covid-19 Viral Syndrome and Novel Coronavirus (ED) Hey/Ath Additional Instructions: You were found to be COVID-19 POSITIVE today. Your chest x-ray and oxygen levels were normal. Rest. Drink plenty of fluids. Do not go out in public for the next 7 days. If your symptoms are resolved after 7 days you may go back to work but wear a mask. Take over the counter cold/flu medications as needed for your symptoms. Take Tylenol and/or Motrin as needed for fevers and body aches. Follow up with your doctor as needed. If you shortness of breath worsens , if you develop difficulty breathing or any other concerning symptom come back to the ER for further evaluation. Prescriptions: No Action amoxicillin 500 mg capsule 500 mg PO BID Qty: 20 RF: 0 tramadol 50 mg tablet 50 mg PO BID PRN (Reason: pain) Qty: 14 RF: 0 Afrin (oxymetazoline) 0.05 % mist 2 spray intranasal Q12H PRN (Reason: nasal congestion) 3 Days Qty: 15 RF: 0 amoxicillin-pot clavulanate [Augmentin] 875-125 mg tablet 1 tab PO Q12H 10 Days Qty: 20 RF: 0 naproxen 500 mg tablet 500 mg PO BID PRN (Reason: pain) Qty: 20 RF: 0 oxycodone-acetaminophen [Percocet] 5-325 mg tablet 1 tab PO TID PRN (Reason: pain (scale score 7-10)) Qty: 9 RF: 0 oxycodone-acetaminophen [Percocet] 5-325 mg tablet 1 tab PO Q4-6H PRN (Reason: pain) Qty: 14 RF: 0 Stand Alone Forms: Work/School Release
== END 2021-08-15 14:17 | disposition home or self-care (01) ==
PROVIDERS: Emergency Provider Emergency Medicine
DX: U07.1 COVID-19 (principal); R07.9 Chest pain, unspecified; E86.0 Dehydration; R05.9 Cough, unspecified; R06.02 Shortness of breath; F12.90 Cannabis use, unspecified, uncomplicated; Z79.899 Other long term (current) drug therapy
CPT/HCPCS: 36415; 71045; 87635; 99282; 99283

== ENCOUNTER 2021-08-23 10:47 | Emergency (ER) | payer OTHER, SELFPAY ==
--- NOTE | 2021-08-23 | ECG_ITS ---
Test Reason : chest pain Blood Pressure : / mmHG Vent. Rate : 044 BPM Atrial Rate : 044 BPM P-R Int : 158 ms QRS Dur : 084 ms QT Int : 434 ms P-R-T Axes : -06 -23 -04 degrees QTc Int : 371 ms Marked sinus bradycardia Minimal voltage criteria for LVH, may be normal variant ( R in aVL ) Abnormal ECG When compared with ECG of 09-JUN-2005 13:40, Rate is lower Referred By: Generic ED Physician Electronically Signed By:WILFRED SIM
--- NOTE | ~2021-08-23 | XR_ITS ---
EXAMINATION: XR CHEST CLINICAL INFORMATION: Covid with chest pain. COMPARISON: None TECHNIQUE: 2 views of the chest were obtained. FINDINGS: No significant abnormality is noted involving the heart, lungs, mediastinum, bony thorax or soft tissues. XR/XR chest 2V IMPRESSION: Unremarkable chest examination.
[2021-08-23 11:11] VITALS: BP 123/81; PULSE 75; RESP 18; TEMP 36.4; O2SAT 97; BMI 26.8
[2021-08-23 13:22] LABS: MANUAL DIFF FLAG NO
[2021-08-23 13:27] LABS: Basophils Percent Auto 0.2 % (0-2); Eosinophils Absolute Auto 0.1 X10*3/uL (0.0-0.4); Eosinophils Percent Auto 1.4 % (0-4); Hematocrit 42.6 % (42.0-52.0); Hemoglobin 15.5 g/dl (14.0-18.0); Imm Gran Abs Auto 0.01 X10*3/uL (0.00-0.03); Imm Gran Pct Auto 0.2 % (0.0-0.4); Lymphocytes Absolute Auto 1.3 X10*3/uL (1.2-4.9); Mean Corpuscular HGB Conc 36.4 g/dl (31.0-36.0); Mean Corpuscular Hemoglobin 32.8 pg (27.0-33.0); Mean Corpuscular Volume 90.1 fL (80.0-98.0); Monocytes Absolute Auto 0.4 X10*3/uL (0.1-1.2); Monocytes Percent Auto 8.9 % (2-11); Neutrophils Absolute Auto 3.1 x10*3/uL (2.0-8.3); Neutrophils Percent Auto 62.3 % (45-73); Platelet Count 138 X10*3/uL (160-400); Red Blood Count 4.73 X10*6/uL (4.60-5.80); Red Cell Distribution Width 11.3 % (11.0-16.0); White Blood Count 4.9 X10*3/uL (4.8-10.8)
[2021-08-23 13:38] LABS: Calcium 9.7 mg/dL (8.4-10.2)
[2021-08-23 13:42] LABS: D Dimer High Sensitivity < 150 NG/ML
[2021-08-23 13:49] LABS: Alanine Aminotransferase 19 U/L (0-40); Albumin Level 4.8 g/dL (3.5-5.0); Alkaline Phosphatase 67 U/L (39-117); Anion Gap 9 (12-20); Aspartate Amino Transferase 15 U/L (5-37); Bilirubin Total 1.2 mg/dL (0.0-1.0); Blood Urea Nitrogen 10 mg/dL (9-16); Calcium 9.6 mg/dL (8.4-10.2); Carbon Dioxide 30 mmol/L (22-29); Chloride 106 mmol/L (96-108); Creatinine Clr Calc Pharmacy 119.8; Estimated Glomerular Filt Rate > 60; Glucose Random 104 mg/dL (60-115); Lactate Dehydrogenase 146 U/L (118-273); Lipase 18 U/L (8-78); Magnesium 1.9 mg/dL (1.6-2.6); Potassium 4.2 mmol/L (3.3-5.1); Sodium 141 mmol/L (135-145); Total Protein 7.2 g/dL (6.5-8.0)
[2021-08-23 13:53] LABS: Troponin-I High Sensitivity < 3.5 ng/L (<3.5-35.0)
[2021-08-23 14:02] LABS: Procalcitonin < 0.02 ng/mL
[2021-08-23 14:04] LABS: Ferritin 308 ng/mL (20-250)
--- NOTE | 2021-08-23 14:07 | ED_ITS ---
HPI - Chest Pain General Chief Complaint: Chest Pain Stated Complaint: Chest pain Time Seen by Provider: 08/23/21 12:36 Source: patient Mode of arrival: ambulatory Limitations: no limitations History of Present Illness HPI narrative: 31-year-old male who tested positive for COVID on 08/15/2021 who is not vaccinated to COVID presenting to the ED with complaints of cough with yellow/green colored sputum with intermittent sharp left-sided chest pain/epigastric abdominal pains for the past few days. He denies any fevers, chills, dizziness, headache, neck pain/stiffness, trouble swallowing or breathing, coughing up blood, vomiting blood, dyspnea on exertion, orthopnea, palpitations, lower extremity edema or calf tenderness, nausea/vomiting/diarrhea constipation, weakness or any other symptoms complaints or concerns at this time. Denies any drug uses such as cocaine. MD complaint: chest pain Pertinent past history: asthma and other (See above) Onset (ago): day(s) Timing of current episode: episodic Prior episodes: No Onset: other (Cannot recall) Pain location: substernal and left chest Pain radiation: none Severity: mild Quality: sharp Relieving factors: nothing Exacerbating factors: nothing Context: recent illness (Positive for COVID) Associated symptoms: cough Treatment prior to arrival: none Risk Factors Coronary artery disease risk factors: none Thoracic aortic dissection risk factors: none Related Data Previous Rx's Medication Instructions Recorded oxymetazoline 0.05 % nasal mist 2 spray INTRANASAL Q12H PRN 3 Days 07/05/20 (Afrin (oxymetazoline)) #15 ml amoxicillin 500 mg capsule 500 mg PO BID #20 cap 07/09/20 tramadol 50 mg tablet 50 mg PO BID PRN #14 tab 07/09/20 amoxicillin 875 mg-potassium 1 tab PO Q12H 10 Days #20 tab 09/24/20 clavulanate 125 mg tablet (Augmentin) naproxen 500 mg tablet 500 mg PO BID PRN #20 tab 09/24/20 oxycodone-acetaminophen 5 mg-325 1 tab PO TID PRN #9 tab 09/24/20 mg tablet (Percocet) oxycodone-acetaminophen 5 mg-325 1 tab PO Q4-6H PRN #14 tab 11/09/20 mg tablet (Percocet) albuterol sulfate 90 mcg/actuation 1 inh INHALATION QID PRN #8.5 g 08/23/21 aerosol inhaler azithromycin 250 mg tablet See Rx Instructions .ROUTE 08/23/21 .COMPLEX #6 tab codeine 10 mg-guaifenesin 100 mg/5 5 ml PO Q6H PRN #120 ml 08/23/21 mL oral liquid (Guaifenesin AC) Allergies Allergy/AdvReac Type Severity Reaction Status Date / Time No Known Allergies Allergy Verified 08/15/21 12:35 Review of Systems Review of Systems: Constitutional : No Weight loss, No Fever, No Chills, No Night Sweats, No Fatigue, No Malaise ENT/Mouth : No Hearing loss, No Ear Pain, No Nasal Congestion, No Sinus Pain, No Hoarseness, No sore throat, No Rhinorrhea, No Swallowing Difficulty Eyes: No Eye Pain, No Swelling, No Redness, No Foreign Body, No Discharge, No Vision Changes Cardiovascular : + Chest Pain, + SOB, No Dyspnea on Exertion, No Orthopnea, No Edema, No Palpitations Respiratory : + Cough, + Sputum, No Wheezing, No Smoke Exposure, + Dyspnea Gastrointestinal : No Nausea, No Vomiting, No Diarrhea, No Constipation, No abd ominal Pain, No Hematochezia, No Melena Genitourinary : no irregular bleeding, No Dysuria, No Urinary Frequency, No Hematuria, No Urinary Incontinence, No Urgency, No Flank Pain, No Urinary Flow Changes, No Hesitancy Musculoskeletal : No joint pain, No Myalgias, No Joint Swelling Skin : No Skin Lesions, No rash Neuro : No Weakness, No Numbness, No Paresthesias, No Loss of Consciousness, No Dizziness, No Headache Psych : No Anxiety/Panic, No Depression, No SI/HI/AH/VH, No Social Issues, Heme/Lymph: No Bruising, No Bleeding,No Lymphadenopathy Endocrine : No Polyuria, No Polydipsia, No Temperature Intolerance Yes all other systems are reviewed and are negative [facility] Past Medical History Attestation statement: The following information was validated with the patient. Medical History Patient denies medical problems Family History Family History Other Family history non-contributory Social History Social History Household Members: Family Alcohol intake: unknown Use of substances other than those prescribed or required for medical reasons: Unknown Substance Use Type: Marijuana Advance Directives: No Advance Directives Information Provided: No Physical Exam Vital Signs: Vital Signs: Last Vital Signs Temp 97.5 F 08/23/21 11:11 Pulse 75 08/23/21 11:11 Resp 18 08/23/21 11:11 BP 123/81 08/23/21 11:11 Pulse Ox 97 08/23/21 11:11 BMI result Body Mass Index 26.8 vital signs have been reviewed as normal and appeared to be correct. Blood pressure normal. Heart rate normal. Respiration rate normal. Temperature normal. Oxygen saturation normal. Appearance: Alert. Oriented X3. No acute distress. Head: Normal external exam. Normocephalic. Atraumatic. Eyes: PERRLA. EOMI. Conjunctiva and sclera normal. Eyelids normal. ENT: EAC normal. TM's Normal. Pharynx normal. Uvula midline. Moist mucous membranes. No trismus noted. No drooling noted. No muffled voice noted. Neck: Normal inspection. Neck supple. FROM. No adenopathy. Thyroid Normal. No meningeal signs. No neck mass noted. CVS: Normal heart rate and rhythm. Heart sound normal. Pulses normal throughout. No murmurs/rales/gallops. Respiratory: No respiratory distress. Painless inspiration. Breath sounds normal. No wheezes/rales/rhonchi noted. Chest nontender. No accessory muscle usage noted or decreased air movement noted. Abdomen: Soft and nontender. Bowel sounds normal in all 4 quadrants. No di stention noted. No organomegaly noted. No visible injury noted. Back: No CVA tenderness. Full range of motion noted. No rashes/lesion/induration/fluctuance or signs of infection noted. Skin: Skin warm and dry. Normal skin color. Normal skin turgor. No rashes/lesions/lacerations noted. Extremities: No lower extremity edema. No calf tenderness is noted. Extremities exhibit normal range of motion. Extremities nontender. Neuro: Oriented X 3. No motor deficit. No sensory deficit. Reflexes normal. Normal steady gait. No focal neuro deficits noted. Vascular: + radial pulses/+ 2 distal pedal pulses/+2 dorsalis pedis b/l. Normal cap refill. No cyanosis noted to upper extremity nails and lower extremity toes nails. Course Course Course Narrative: 31-year-old male who tested positive for COVID on 08/15/2021 who is not vaccinated to COVID presenting to the ED with complaints of cough with yellow/green colored sputum with intermittent sharp left-sided chest pain/epigastric abdominal pains for the past few days. He denies any fevers, chills, dizziness, headache, neck pain/stiffness, trouble swallowing or breathing, coughing up blood, vomiting blood, dyspnea on exertion, orthopnea, palpitations, lower extremity edema or calf tenderness, nausea/vomiting/diarrhea constipation, weakness or any other symptoms complaints or concerns at this time. Denies any drug uses such as cocaine. Labs obtained and patient has a low platelet count at 138. D-dimer is less than 150 which is negative. Ferritin 308. Total bilirubin 1.2. Otherwise all other labs are within normal limits including troponin. Chest x-ray is within normal limits no acute processes are noted. EKG is marked sinus bradycardia with a ventricular rate of 44 with minimal voltage criteria for LVH no acute ischemic changes are noted. Similar compared to prior EKG 06/09/2005. Therefore at this time will DC home with antibiotics for possible bronchitis and instructions to continue self isolating due to his COVID and to return if any new or worsening symptoms. Patient understands agrees with this plan. MDM - Chest Pain Medical Records Data Attestation: I reviewed the patient's medical records. Lab Data Attestation: I reviewed the patient's lab results. Result diagrams: 08/23/21 13:17 08/23/21 13:17 Labs: Lab Results 08/23/21 08/23/21 08/23/21 Range/Units 13:17 13:17 13:17 WBC 4.9 (4.8-10.8) X10*3/uL RBC 4.73 (4.60-5.80) X10*6/uL Hgb 15.5 (14.0-18.0) g/dl Hct 42.6 (42.0-52.0) % MCV 90.1 (80.0-98.0) fL MCH 32.8 (27.0-33.0) pg MCHC 36.4 H (31.0-36.0) g/dl RDW 11.3 (11.0-16.0) % Plt Count 138 L (160-400) X10*3/uL MPV 11.0 (9.4-12.4) fL Immature Gran % (Auto) 0.2 (0.0-0.4) % Neut % (Auto) 62.3 (45-73) % Lymph % (Auto) 27.0 (20-40) % [place] % (Auto) 8.9 (2-11) % Eos % (Auto) 1.4 (0-4) % Baso % (Auto) 0.2 (0-2) % Lymph # (Auto) 1.3 (1.2-4.9) X10*3/uL [place] # (Auto) 0.4 (0.1-1.2) X10*3/uL Eos # (Auto) 0.1 (0.0-0.4) X10*3/uL Baso # (Auto) 0.0 (0.0-0.2) X10*3/uL Abs Immat Gran (auto) 0.01 (0.00-0.03) X10*3/uL Absolute Neuts (auto) 3.1 (2.0-8.3) x10*3/uL Absolute Nucleated RBC 0.000 (0.0-0.012) X10*3/uL Nucleated RBC % (auto) 0.0 (0.0-0.2) /100WBC D-Dimer High Sensitivty < 150 NG/ML Sodium 141 (135-145) mmol/L Potassium 4.2 (3.3-5.1) mmol/L Chloride 106 (96-108) mmol/L Carbon Dioxide 30 H (22-29) mmol/L Anion Gap 9 L (12-20) BUN 10 (9-16) mg/dL Creatinine 0.98 (0.5-1.4) mg/dL Estim Creat Clear Calc 119.8 Estimated GFR > 60 Random Glucose 104 (60-115) mg/dL Calcium 9.6 (8.4-10.2) mg/dL Magnesium 1.9 (1.6-2.6) mg/dL Ferritin (20-250) ng/mL Total Bilirubin 1.2 H (0.0-1.0) mg/dL AST 15 (5-37) U/L ALT 19 (0-40) U/L Alkaline Phosphatase 67 (39-117) U/L Lactate Dehydrogenase 146 (118-273) U/L Troponin I High Sens (<3.5-35.0) ng/L Total Protein 7.2 (6.5-8.0) g/dL Albumin 4.8 (3.5-5.0) g/dL Lipase 18 (8-78) U/L Procalcitonin ng/mL 08/23/21 08/23/21 08/23/21 Range/Units 13:17 13:17 13:17 WBC (4.8-10.8) X10*3/uL RBC (4.60-5.80) X10*6/uL Hgb (14.0-18.0) g/dl Hct (42.0-52.0) % MCV (80.0-98.0) fL MCH (27.0-33.0) pg MCHC (31.0-36.0) g/dl RDW (11.0-16.0) % Plt Count (160-400) X10*3/uL MPV (9.4-12.4) fL Immature Gran % (Auto) (0.0-0.4) % Neut % (Auto) (45-73) % Lymph % (Auto) (20-40) % [place] % (Auto) (2-11) % Eos % (Auto) (0-4) % Baso % (Auto) (0-2) % Lymph # (Auto) (1.2-4.9) X10*3/uL [place] # (Auto) (0.1-1.2) X10*3/uL Eos # (Auto) (0.0-0.4) X10*3/uL Baso # (Auto) (0.0-0.2) X10*3/uL Abs Immat Gran (auto) (0.00-0.03) X10*3/uL Absolute Neuts (auto) (2.0-8.3) x10*3/uL Absolute Nucleated RBC (0.0-0.012) X10*3/uL Nucleated RBC % (auto) (0.0-0.2) /100WBC D-Dimer High Sensitivty NG/ML Sodium (135-145) mmol/L Potassium (3.3-5.1) mmol/L Chloride (96-108) mmol/L Carbon Dioxide (22-29) mmol/L Anion Gap (12-20) BUN (9-16) mg/dL Creatinine (0.5-1.4) mg/dL Estim Creat Clear Calc Estimated GFR Random Glucose (60-115) mg/dL Calcium 9.7 (8.4-10.2) mg/dL Magnesium (1.6-2.6) mg/dL Ferritin 308 H (20-250) ng/mL Total Bilirubin (0.0-1.0) mg/dL AST (5-37) U/L ALT (0-40) U/L Alkaline Phosphatase (39-117) U/L Lactate Dehydrogenase (118-273) U/L Troponin I High Sens < 3.5 (<3.5-35.0) ng/L Total Protein (6.5-8.0) g/dL Albumin (3.5-5.0) g/dL Lipase (8-78) U/L Procalcitonin < 0.02 ng/mL Imaging Data Chest x-ray: Attestation: I personally reviewed and interpreted this imaging study as follows: Radiologist's impression: FINDINGS: No significant abnormality is noted involving the heart, lungs, mediastinum, bony thorax or soft tissues. XR/XR chest 2V IMPRESSION: Unremarkable chest examination. ECG Data ECG #1: Attestation: I personally reviewed and interpreted this ECG as follows: ECG interpretation date: 08/23/21 ECG interpretation time: 11:52 Interpretation: EKG is marked sinus bradycardia with a ventricular rate of 44 with minimal voltage criteria for LVH no acute ischemic changes are noted. Similar compared to prior EKG 06/09/2005. Discharge Plan Discharge Clinical Impression: COVID-19, Atypical chest pain, Bronchitis Patient Disposition: Home, Self-Care Instructions: Acute Bronchitis (ED), Noncardiac Chest Pain (ED), COVID-19 (Coronavirus Disease 2019) (ED) Prescriptions: New albuterol sulfate 90 mcg/actuation HFA aerosol inhaler 1 inh inhalation QID PRN (Reason: shortness of breath or wheezing) Qty: 8.5 RF: 0 azithromycin 250 mg tablet See Rx Instructions .ROUTE .COMPLEX Qty: 6 RF: 0 codeine-guaifenesin [Guaifenesin AC] 10-100 mg/5 mL liquid 5 ml PO Q6H PRN (Reason: cold symptoms) Qty: 120 RF: 0 No Action amoxicillin 500 mg capsule 500 mg PO BID Qty: 20 RF: 0 tramadol 50 mg tablet 50 mg PO BID PRN (Reason: pain) Qty: 14 RF: 0 Afrin (oxymetazoline) 0.05 % mist 2 spray intranasal Q12H PRN (Reason: nasal congestion) 3 Days Qty: 15 RF: 0 amoxicillin-pot clavulanate [Augmentin] 875-125 mg tablet 1 tab PO Q12H 10 Days Qty: 20 RF: 0 naproxen 500 mg tablet 500 mg PO BID PRN (Reason: pain) Qty: 20 RF: 0 oxycodone-acetaminophen [Percocet] 5-325 mg tablet 1 tab PO TID PRN (Reason: pain (scale score 7-10)) Qty: 9 RF: 0 oxycodone-acetaminophen [Percocet] 5-325 mg tablet 1 tab PO Q4-6H PRN (Reason: pain) Qty: 14 RF: 0 Referrals: Physician,Unknown J [Primary Care Provider] - 2 days (your pcp) Stand Alone Forms: Work/School Release Print Language: Bruneian
== END 2021-08-23 14:44 | disposition home or self-care (01) ==
PROVIDERS: Physician Assistant Medical; Emergency Provider Internal Medicine
DX: U07.1 COVID-19 (principal); R07.89 Other chest pain; J40 Bronchitis, not specified as acute or chronic; F12.90 Cannabis use, unspecified, uncomplicated
CPT/HCPCS: 36415; 71046; 80053; 82310; 82728; 83615; 83690; 83735; 84145; 84484; 85025; 85379; 93005; 99283; 99284

== ENCOUNTER 2021-10-30 12:38 | Emergency (ER) | payer OTHER, SELFPAY ==
--- NOTE | ~2021-10-30 | CT_ITS ---
EXAMINATION: CT HEAD WITHOUT CONTRAST CLINICAL INFORMATION: Headache. Vomiting. COMPARISON: None TECHNIQUE: Contiguous axial imaging was performed from the skull base to vertex without intravenous administration of contrast. Coronal and sagittal reformatted images are performed at CT scanner This CT examination was performed using dose optimization techniques as appropriate, variously including the following: *Automated exposure control *Adjustment of mA and/or kV according to patient size (this includes techniques or standardized protocols for targeted exams where dose is matched to indication/reason for exam; i.e. extremities or head) *Use of iterative reconstruction technique DLP: 719 mGy-cm FINDINGS: There is no evidence of acute intracranial hemorrhage or territorial infarction. No abnormal mass effect or midline shift is seen. Ellis to white matter differentiation is well preserved. No extra-axial fluid collections are identified. The ventricles are normal in size. There is no abnormal attenuation within the brain parenchyma. The osseous structures and soft tissues are normal. The mastoid air cells and visualized portions of the paranasal sinuses are well aerated. CT/CT head/brain wo con IMPRESSION: No acute intracranial pathology.
[2021-10-30 12:59] VITALS: BP 149/84; PULSE 79; RESP 18; TEMP 36.9; O2SAT 97; BMI 27.1
--- NOTE | 2021-10-30 16:25 | ED.HA ---
HPI - Headache General Chief Complaint: Headache Stated Complaint: severe headaches/nausea Time Seen by Provider: 10/30/21 14:59 Source: patient Mode of arrival: ambulatory Limitations: no limitations History of Present Illness HPI Narrative: Tuesday n/v abdominal pain diarrhea - caught from his kids but since Tuesday reports since then increased throbbing headache MD elicited complaint: headache Onset (ago): day(s) (4) Onset description: gradually and while at rest Location: band-like Severity: moderate Quality & Timing: throbbing Exacerbating factors: exertion, movement of head/neck and sitting/standing Relieving factors: nothing Context: other (recent GI illness from kids and cannot tolerate much by mouth) Associated symptoms: nausea and vomiting Treatments prior to arrival: none Related Data Previous Rx's Medication Instructions Recorded oxymetazoline 0.05 % nasal mist 2 spray INTRANASAL Q12H PRN 3 Days 07/05/20 (Afrin (oxymetazoline)) #15 ml amoxicillin 500 mg capsule 500 mg PO BID #20 cap 07/09/20 tramadol 50 mg tablet 50 mg PO BID PRN #14 tab 07/09/20 amoxicillin 875 mg-potassium 1 tab PO Q12H 10 Days #20 tab 09/24/20 clavulanate 125 mg tablet (Augmentin) naproxen 500 mg tablet 500 mg PO BID PRN #20 tab 09/24/20 oxycodone-acetaminophen 5 mg-325 1 tab PO TID PRN #9 tab 09/24/20 mg tablet (Percocet) oxycodone-acetaminophen 5 mg-325 1 tab PO Q4-6H PRN #14 tab 11/09/20 mg tablet (Percocet) albuterol sulfate 90 mcg/actuation 1 inh INHALATION QID PRN #8.5 g 08/23/21 aerosol inhaler azithromycin 250 mg tablet See Rx Instructions .ROUTE 08/23/21 .COMPLEX #6 tab codeine 10 mg-guaifenesin 100 mg/5 5 ml PO Q6H PRN #120 ml 08/23/21 mL oral liquid (Guaifenesin AC) ondansetron 4 mg disintegrating 4 mg PO Q8H PRN #20 tab 10/30/21 tablet Allergies Allergy/AdvReac Type Severity Reaction Status Date / Time No Known Allergies Allergy Verified 08/15/21 12:35 Review of Systems Review of Systems: Constitutional : No Fever, No Chills, No Fatigue ENT/Mouth : No sore throat, No Rhinorrhea Eyes: No Eye Pain, No Swelling, No Redness Cardiovascular : No Chest Pain, No SOB, No Dyspnea on Exertion Respiratory : No Cough, No Sputum Gastrointestinal : pos Nausea, pos Vomiting, pos Diarrhea, No abdominal Pain Genitourinary : No Dysuria, No Urinary Frequency, No Hematuria, Musculoskeletal : No joint pain, No Myalgias, No Joint Swelling Skin : No Skin Lesions, No rash Neuro : No Weakness, No Numbness, No Dizziness, positive Headache Psych : No Anxiety/Panic, No Depression Heme/Lymph: No Bruising, No Bleeding,No Lymphadenopathy Endocrine : No Polyuria, No Polydipsia All other systems reviewed and are negative [facility] Past Medical History Attestation statement: The following information was validated with the patient. Medical History Patient denies medical problems Family History Family History Other Family history non-contributory Social History Social History Household Members: Family Alcohol intake: current Alcohol intake frequency: holidays/special occasions only Patient Tobacco Use Status: Never used Tobacco Use of substances other than those prescribed or required for medical reasons: Yes Substance Use Type: Marijuana Advance Directives: No Advance Directives Information Provided: No Physical Exam Vital Signs: Vital Signs: Last Vital Signs Temp 98.5 F 10/30/21 17:57 Pulse 88 10/30/21 17:57 Resp 19 10/30/21 17:57 BP 148/87 H 10/30/21 17:57 Pulse Ox 97 10/30/21 12:59 BMI result Body Mass Index 27.1 Appearance: Alert. Oriented X3. No acute distress. Eyes: Pupils equal, round and reactive to light. ENT: Pharynx normal. Neck: Normal inspection. Neck supple. no meningeal signs CVS: Normal heart rate and rhythm. Pulses normal. Respiratory: No respiratory distress. Breath sounds normal. Abdomen: Soft and nontender. Skin: Skin warm and dry. Normal skin color. Normal skin turgor. Extremities: No lower extremity edema. No calf ttp Neuro: Oriented X 3. No motor deficit. No sensory deficit. N ataxia Course Course Course Narrative: negative workup stable for DC MDM - Headache MDM Narrative Medical decision making narrative: 31 yo male with recent GI illness c/o headache and persistent nausea since then at this time likely dehydration will need labs, IVF x 2L, zofran, CT head for mass though suspect more likely dehydration the patient is very fixated as he had a family member with brain tumors and this is how they presented. Dispo per results and findings. Lab Data Result diagrams: 10/30/21 18:13 10/30/21 18:13 Labs: Lab Results 10/30/21 10/30/21 Range/Units 18:13 18:13 WBC 6.8 (4.8-10.8) X10*3/uL RBC 5.17 (4.60-5.80) X10*6/uL Hgb 17.2 (14.0-18.0) g/dl Hct 46.5 (42.0-52.0) % MCV 89.9 (80.0-98.0) fL MCH 33.3 H (27.0-33.0) pg MCHC 37.0 H (31.0-36.0) g/dl RDW 11.3 (11.0-16.0) % Plt Count 181 D (160-400) X10*3/uL MPV 11.1 (9.4-12.4) fL Immature Gran % (Auto) 0.3 (0.0-0.4) % Neut % (Auto) 76.7 H (45-73) % Lymph % (Auto) 13.9 L (20-40) % [place] % (Auto) 8.4 (2-11) % Eos % (Auto) 0.4 (0-4) % Baso % (Auto) 0.3 (0-2) % Lymph # (Auto) 0.9 L (1.2-4.9) X10*3/uL [place] # (Auto) 0.6 (0.1-1.2) X10*3/uL Eos # (Auto) 0.0 (0.0-0.4) X10*3/uL Baso # (Auto) 0.0 (0.0-0.2) X10*3/uL Abs Immat Gran (auto) 0.02 (0.00-0.03) X10*3/uL Absolute Neuts (auto) 5.2 (2.0-8.3) x10*3/uL Absolute Nucleated RBC 0.000 (0.0-0.012) X10*3/uL Nucleated RBC % (auto) 0.0 (0.0-0.2) /100WBC Sodium 140 (135-145) mmol/L Potassium 4.5 (3.3-5.1) mmol/L Chloride 102 (96-108) mmol/L Carbon Dioxide 27 (22-29) mmol/L Anion Gap 16 (12-20) BUN 11 (9-16) mg/dL Creatinine 0.95 (0.5-1.4) mg/dL Estim Creat Clear Calc 123.6 Estimated GFR > 60 Random Glucose 101 (60-115) mg/dL Calcium 10.1 (8.4-10.2) mg/dL Magnesium 2.1 (1.6-2.6) mg/dL Total Bilirubin 2.3 H (0.0-1.0) mg/dL Direct Bilirubin 0.8 H (0.0-0.5) mg/dL AST 21 (5-37) U/L ALT 22 (0-40) U/L Alkaline Phosphatase 73 (39-117) U/L Total Protein 7.7 (6.5-8.0) g/dL Albumin 5.2 H (3.5-5.0) g/dL Lipase 13 (8-78) U/L Discharge Plan Discharge Clinical Impression: Acute dehydration Headache Qualifiers: Headache type: unspecified Headache chronicity pattern: acute headache Intractability: not intractable Qualified Code(s): R51.9 - Headache, unspecified Patient Disposition: Home, Self-Care Instructions: Dehydration (ED), Acute Headache (DC) Additional Instructions: return to ED for any worsening symptoms or concerns Prescriptions: New ondansetron 4 mg tablet,disintegrating 4 mg PO Q8H PRN (Reason: nausea and vomiting) Qty: 20 0RF No Action amoxicillin 500 mg capsule 500 mg PO BID Qty: 20 0RF tramadol 50 mg tablet 50 mg PO BID PRN (Reason: pain) Qty: 14 0RF Afrin (oxymetazoline) 0.05 % mist 2 spray intranasal Q12H PRN (Reason: nasal congestion) 3 Days Qty: 15 0RF amoxicillin-pot clavulanate [Augmentin] 875-125 mg tablet 1 tab PO Q12H 10 Days Qty: 20 0RF naproxen 500 mg tablet 500 mg PO BID PRN (Reason: pain) Qty: 20 0RF oxycodone-acetaminophen [Percocet] 5-325 mg tablet 1 tab PO TID PRN (Reason: pain (scale score 7-10)) Qty: 9 0RF oxycodone-acetaminophen [Percocet] 5-325 mg tablet 1 tab PO Q4-6H PRN (Reason: pain) Qty: 14 0RF albuterol sulfate 90 mcg/actuation HFA aerosol inhaler 1 inh inhalation QID PRN (Reason: shortness of breath or wheezing) Qty: 8.5 0RF azithromycin 250 mg tablet See Rx Instructions .ROUTE .COMPLEX Qty: 6 0RF Rx Instructions: take 500 mg today (day 1), then 250 mg for 4 days (days 2-5) codeine-guaifenesin [Guaifenesin AC] 10-100 mg/5 mL liquid 5 ml PO Q6H PRN (Reason: cold symptoms) Qty: 120 0RF
[2021-10-30 17:57] VITALS: BP 148/87; PULSE 88; RESP 19; TEMP 36.9
[2021-10-30 18:16] LABS: MANUAL DIFF FLAG NO
[2021-10-30] MEDS: 0.9 % Sodium Chloride 1,000 ML 999 ML IVCONT ×2 (18:17→18:44)
[2021-10-30] MEDS: ondansetron HCL 4 MG/2 ML VIAL IVPUSH (18:18)
[2021-10-30 18:32] LABS: Alanine Aminotransferase 22 U/L (0-40); Albumin Level 5.2 g/dL (3.5-5.0); Alkaline Phosphatase 73 U/L (39-117); Anion Gap 16 (12-20); Aspartate Amino Transferase 21 U/L (5-37); Bilirubin Direct 0.8 mg/dL (0.0-0.5); Bilirubin Total 2.3 mg/dL (0.0-1.0); Blood Urea Nitrogen 11 mg/dL (9-16); Calcium 10.1 mg/dL (8.4-10.2); Carbon Dioxide 27 mmol/L (22-29); Chloride 102 mmol/L (96-108); Creatinine Clr Calc Pharmacy 123.6; Estimated Glomerular Filt Rate > 60; Glucose Random 101 mg/dL (60-115); Lipase 13 U/L (8-78); Magnesium 2.1 mg/dL (1.6-2.6); Potassium 4.5 mmol/L (3.3-5.1); Sodium 140 mmol/L (135-145); Total Protein 7.7 g/dL (6.5-8.0)
[2021-10-30 18:42] LABS: Basophils Percent Auto 0.3 % (0-2); Eosinophils Percent Auto 0.4 % (0-4); Hematocrit 46.5 % (42.0-52.0); Hemoglobin 17.2 g/dl (14.0-18.0); Imm Gran Abs Auto 0.02 X10*3/uL (0.00-0.03); Imm Gran Pct Auto 0.3 % (0.0-0.4); Lymphocytes Absolute Auto 0.9 X10*3/uL (1.2-4.9); Lymphocytes Percent Auto 13.9 % (20-40); Mean Corpuscular Hemoglobin 33.3 pg (27.0-33.0); Mean Corpuscular Volume 89.9 fL (80.0-98.0); Mean Platelet Volume 11.1 fL (9.4-12.4); Monocytes Absolute Auto 0.6 X10*3/uL (0.1-1.2); Monocytes Percent Auto 8.4 % (2-11); Neutrophils Absolute Auto 5.2 x10*3/uL (2.0-8.3); Neutrophils Percent Auto 76.7 % (45-73); Platelet Count 181 X10*3/uL (160-400); Red Blood Count 5.17 X10*6/uL (4.60-5.80); Red Cell Distribution Width 11.3 % (11.0-16.0); White Blood Count 6.8 X10*3/uL (4.8-10.8)
[2021-10-30] MEDS: Ketorolac Tromethamine 30 MG/ML VIAL IVPUSH (19:01)
--- NOTE | 2021-10-30 22:01 | PC.NURSE ---
I assumed nursing care of this pt upon my arrival at 1900. The pt has, since then, been resting in stretcher in room with parents at bedside, continuous observation begin performed by technical maintenance technician. THe pt is calm, cooperative, playful, has no complaints, and is taking PO food and fluids without difficulty. he has been discharged at this time. I prepared to discharge with spanish language lecturer but Dr. Lopez states they dont need that. they can go Pt ambulated out of the ED independently and with steady gait.
== END 2021-10-30 22:04 | disposition home or self-care (01) ==
PROVIDERS: Emergency Provider Emergency Medicine
DX: R51.9 Headache, unspecified (principal); E86.0 Dehydration; R11.2 Nausea with vomiting, unspecified; F12.90 Cannabis use, unspecified, uncomplicated
CPT/HCPCS: 36415; 70450; 80048; 80076; 83690; 83735; 85025; 96361; 96374; 96375; 99284; J1885; J2405

== ENCOUNTER 2022-01-18 16:18 | Emergency (ER) | payer OTHER, SELFPAY ==
[2022-01-18 16:37] VITALS: BP 154/80; PULSE 80; RESP 18; TEMP 36.9; O2SAT 98; BMI 25.7
[2022-01-18 17:00] LABS: IDNOW Serial# 9DD0AD1C; Influenza A Negative (Negative); Influenza B2 Negative (Negative)
[2022-01-18 17:04] LABS: COVID-19 Test Negative (Negative); IDNOW Serial# 16C4AD1C
--- NOTE | 2022-01-18 18:53 | ED_ITS ---
HPI - General Adult General Chief complaint: General Medical Stated complaint: Congested ? Sinus Infection Time Seen by Provider: 01/18/22 18:53 Related Data Previous Rx's Medication Instructions Recorded oxymetazoline 0.05 % nasal mist 2 spray INTRANASAL Q12H PRN 3 Days 07/05/20 (Afrin (oxymetazoline)) #15 ml amoxicillin 500 mg capsule 500 mg PO BID #20 cap 07/09/20 tramadol 50 mg tablet 50 mg PO BID PRN #14 tab 07/09/20 amoxicillin 875 mg-potassium 1 tab PO Q12H 10 Days #20 tab 09/24/20 clavulanate 125 mg tablet (Augmentin) naproxen 500 mg tablet 500 mg PO BID PRN #20 tab 09/24/20 oxycodone-acetaminophen 5 mg-325 1 tab PO TID PRN #9 tab 09/24/20 mg tablet (Percocet) oxycodone-acetaminophen 5 mg-325 1 tab PO Q4-6H PRN #14 tab 11/09/20 mg tablet (Percocet) albuterol sulfate 90 mcg/actuation 1 inh INHALATION QID PRN #8.5 g 08/23/21 aerosol inhaler azithromycin 250 mg tablet See Rx Instructions .ROUTE 08/23/21 .COMPLEX #6 tab codeine 10 mg-guaifenesin 100 mg/5 5 ml PO Q6H PRN #120 ml 08/23/21 mL oral liquid (Guaifenesin AC) ondansetron 4 mg disintegrating 4 mg PO Q8H PRN #20 tab 10/30/21 tablet azithromycin 250 mg tablet See Rx Instructions .ROUTE 01/18/22 .COMPLEX #6 tab Allergies Allergy/AdvReac Type Severity Reaction Status Date / Time No Known Allergies Allergy Verified 08/15/21 12:35 [facility] Past Medical History Medical History Patient denies medical problems Family History Family History Other Family history non-contributory Social History Social History Household Members: Family Alcohol intake: current Alcohol intake frequency: holidays/special occasions only Patient Tobacco Use Status: Never used Tobacco Substance Use Type: Marijuana Advance Directives: No Advance Directives Information Provided: No Physical Exam ED Vital Signs: Vital Signs - 24 hr 01/18/22 16:37 Temperature 98.5 F Pulse Rate 80 Respiratory Rate 18 Blood Pressure 154/80 H Pulse Oximetry 98 BMI result Body Mass Index 25.7 Medical Decision Making Lab Data Labs: Lab Results 01/18/22 01/18/22 Range/Units 16:39 16:39 COVID-19 ([facility]AREL) Negative (Negative) COVID-19 Clin Com See Note Influenza Type A ([facility]) Negative (Negative) Influenza Type B ([facility]NON) Negative (Negative) Influenza A & B Note See Note Discharge Plan Discharge Clinical Impression: Sinusitis Patient Disposition: Home, Self-Care Instructions: Sinusitis (ED) Additional Instructions: Be sure to rest, stay well hydrated drinking plenty of fluids, eat small frequent meals. Tylenol/ibuprofen can be used as needed for fever/pain. [id number] cold medications may be helpful as well for symptoms. Saline nasal spray, humidifier may be helpful for nasal congestion. You have also given a prescription for azithromycin, please complete this entire course of antibiotic. You may return to the emergency department with any new or worsening symptoms or concerns. Follow-up with your primary care provider as needed. Prescriptions: New azithromycin 250 mg tablet See Rx Instructions .ROUTE .COMPLEX Qty: 6 0RF Rx Instructions: For 250 mg dose pack: take 500 mg today (day 1), then 250 mg for 4 days (days 2-5) No Action amoxicillin 500 mg capsule 500 mg PO BID Qty: 20 0RF tramadol 50 mg tablet 50 mg PO BID PRN (Reason: pain) Qty: 14 0RF Afrin (oxymetazoline) 0.05 % mist 2 spray intranasal Q12H PRN (Reason: nasal congestion) 3 Days Qty: 15 0RF amoxicillin-pot clavulanate [Augmentin] 875-125 mg tablet 1 tab PO Q12H 10 Days Qty: 20 0RF naproxen 500 mg tablet 500 mg PO BID PRN (Reason: pain) Qty: 20 0RF oxycodone-acetaminophen [Percocet] 5-325 mg tablet 1 tab PO TID PRN (Reason: pain (scale score 7-10)) Qty: 9 0RF oxycodone-acetaminophen [Percocet] 5-325 mg tablet 1 tab PO Q4-6H PRN (Reason: pain) Qty: 14 0RF albuterol sulfate 90 mcg/actuation HFA aerosol inhaler 1 inh inhalation QID PRN (Reason: shortness of breath or wheezing) Qty: 8.5 0RF azithromycin 250 mg tablet See Rx Instructions .ROUTE .COMPLEX Qty: 6 0RF Rx Instructions: take 500 mg today (day 1), then 250 mg for 4 days (days 2-5) codeine-guaifenesin [Guaifenesin AC] 10-100 mg/5 mL liquid 5 ml PO Q6H PRN (Reason: cold symptoms) Qty: 120 0RF ondansetron 4 mg tablet,disintegrating 4 mg PO Q8H PRN (Reason: nausea and vomiting) Qty: 20 0RF Stand Alone Forms: Work/School Release Interventions: ED Discharge Assessment Last Done: 01/18/22 19:39 Discharge Date/Time: 01/18/22 19:40
--- NOTE | 2022-01-18 19:11 | ED_ITS ---
HPI - URI/Sore Throat General Chief Complaint: General Medical Stated Complaint: Congested ? Sinus Infection Time Seen by Provider: 01/18/22 18:53 Source: patient Mode of arrival: ambulatory Limitations: no limitations History of Present Illness HPI Narrative: Patient presents emergency department for evaluation of nasal congestion, facial pressure, headache and sore throat x5 days. Reports that he has trialed A llegra, and Afrin with minimal improvement. Feels that his symptoms are getting worse over the past couple of days. Has green/yellow mucus from his nostrils. Denies fevers, chills, headache vision changes, dizziness, lightheadedness, neck pain, neck stiffness, chest pain, palpitations, shortness of breath, difficulty breathing, nausea, vomiting, abdominal pain. Denies any known sick contacts. Related Data Previous Rx's Medication Instructions Recorded oxymetazoline 0.05 % nasal mist 2 spray INTRANASAL Q12H PRN 3 Days 07/05/20 (Afrin (oxymetazoline)) #15 ml amoxicillin 500 mg capsule 500 mg PO BID #20 cap 07/09/20 tramadol 50 mg tablet 50 mg PO BID PRN #14 tab 07/09/20 amoxicillin 875 mg-potassium 1 tab PO Q12H 10 Days #20 tab 09/24/20 clavulanate 125 mg tablet (Augmentin) naproxen 500 mg tablet 500 mg PO BID PRN #20 tab 09/24/20 oxycodone-acetaminophen 5 mg-325 1 tab PO TID PRN #9 tab 09/24/20 mg tablet (Percocet) oxycodone-acetaminophen 5 mg-325 1 tab PO Q4-6H PRN #14 tab 11/09/20 mg tablet (Percocet) albuterol sulfate 90 mcg/actuation 1 inh INHALATION QID PRN #8.5 g 08/23/21 aerosol inhaler azithromycin 250 mg tablet See Rx Instructions .ROUTE 08/23/21 .COMPLEX #6 tab codeine 10 mg-guaifenesin 100 mg/5 5 ml PO Q6H PRN #120 ml 08/23/21 mL oral liquid (Guaifenesin AC) ondansetron 4 mg disintegrating 4 mg PO Q8H PRN #20 tab 10/30/21 tablet azithromycin 250 mg tablet See Rx Instructions .ROUTE 06/06/22 .COMPLEX #6 tab Allergies Allergy/AdvReac Type Severity Reaction Status Date / Time No Known Allergies Allergy Verified 08/15/21 12:35 Review of Systems Review of Systems: Constitutional: No fever. No chills. No weakness. Positive fatigue. ENT/ Mouth: No Ear Pain, positive Nasal Congestion, positive sore throat, positive Rhinorrhea, No Swallowing Difficulty Skin: No rash or itching. Cardiovascular: No chest pain. No palpitations. Respiratory: No shortness of breath. Positive cough. No sputum production. Gastrointestinal: No nausea. No vomiting. No diarrhea. No abdominal pain. Genitourinary: No burning micturition. No urinary frequency. Neurologic: No headache. No dizziness. No syncope. No numbness or tingling in the extremities. Musculoskeletal: No muscle pain. No back pain. No joint pain or stiffness. Yes all other systems are reviewed and are negative [facility] Past Medical History Attestation statement: The following information was validated with the patient. Source: old records reviewed Medical History Patient denies medical problems Family History Family History Other Family history non-contributory Social History Social History Household Members: Family Alcohol intake: current Alcohol intake frequency: holidays/special occasions only Patient Tobacco Use Status: Never used Tobacco Substance Use Type: Marijuana Advance Directives: No Advance Directives Information Provided: No Physical Exam 2 Vital Signs: Vital Signs: Last Vital Signs Temp 98.5 F 01/18/22 16:37 Pulse 80 01/18/22 16:37 Resp 18 01/18/22 16:37 BP 154/80 H 01/18/22 16:37 Pulse Ox 98 01/18/22 16:37 BMI result Body Mass Index 25.7 Appearance: Alert.?Oriented to person, place and time. No acute distress.?Normal affect. Head: Normocephalic, atraumatic. Tenderness to palpation of the left maxillary and frontal sinus. Eyes: Pupils equal, round and reactive to light.? EOMI. No nystagmus. ENT: TM normal bilaterally. Pharynx normal.?? Neck: Normal inspection.? Neck supple.??No cervical adenopathy CVS: Heart sounds normal. Normal heart rate and rhythm.? Pulses normal.?? Respiratory: No respiratory distress.? Lung sounds clear to auscultation bilaterally?? Abdomen: Soft and non-tender. Normoactive bowel sounds. Skin: Skin warm and dry.? Normal skin color.? ? Extremities: No lower extremity edema.? Neuro: Moves all extremities spontaneously. Sensation intact bilaterally. No motor deficits. Ambulates with normal steady gait. Course Course Course Narrative: Patient is a 31-year-old male with past medical history of asthma, presenting for evaluation of upper respiratory symptoms, sinus pain. COVID-19 testing negative. Influenza testing negative. At this time history and physical exam not consistent with ACS/PE/pneumonia. Well-appearing, nontoxic, afebrile, no tachycardia or tachypnea/hypoxia. Speaking clear full sentences, ambulatory with steady gait. Given sinus pain and tenderness in addition upper respiratory symptoms, consistent with acute sinusitis. Discussed new prescription for azithromycin, and conservative treatment including rest, hydration, Tyleno l/ibuprofen as needed for fever and body aches, saline nasal spray, humidifier, [id number] cold medication. Advised to follow-up with primary care provider as needed, discussed reasons to return back to the emergency department. All questions were answered. Patient discharged home in stable condition. Provided with a return to work/school note. MDM - URI/Sore Throat Medical Records Attestation: I reviewed the patient's medical records. Lab Data Attestation: I reviewed the patient's lab results. Labs: Lab Results 01/18/22 01/18/22 Range/Units 16:39 16:39 COVID-19 ([facility]AREL) Negative (Negative) COVID-19 Clin Com See Note Influenza Type A ([facility]) Negative (Negative) Influenza Type B ([facility]) Negative (Negative) Influenza A & B Note See Note Discharge Plan Discharge Clinical Impression: Sinusitis Patient Disposition: Home, Self-Care Instructions: Sinusitis (ED) Additional Instructions: Be sure to rest, stay well hydrated drinking plenty of fluids, eat small frequent meals. Tylenol/ibuprofen can be used as needed for fever/pain. [id number] cold medications may be helpful as well for symptoms. Saline nasal spray, humidifier may be helpful for nasal congestion. You have also given a prescription for azithromycin, please complete this entire course of antibiotic. You may return to the emergency department with any new or worsening symptoms or concerns. Follow-up with your primary care provider as needed. Prescriptions: New azithromycin 250 mg tablet See Rx Instructions .ROUTE .COMPLEX Qty: 6 0RF Rx Instructions: For 250 mg dose pack: take 500 mg today (day 1), then 250 mg for 4 days (days 2-5) No Action amoxicillin 500 mg capsule 500 mg PO BID Qty: 20 0RF tramadol 50 mg tablet 50 mg PO BID PRN (Reason: pain) Qty: 14 0RF Afrin (oxymetazoline) 0.05 % mist 2 spray intranasal Q12H PRN (Reason: nasal congestion) 3 Days Qty: 15 0RF amoxicillin-pot clavulanate [Augmentin] 875-125 mg tablet 1 tab PO Q12H 10 Days Qty: 20 0RF naproxen 500 mg tablet 500 mg PO BID PRN (Reason: pain) Qty: 20 0RF oxycodone-acetaminophen [Percocet] 5-325 mg tablet 1 tab PO TID PRN (Reason: pain (scale score 7-10)) Qty: 9 0RF oxycodone-acetaminophen [Percocet] 5-325 mg tablet 1 tab PO Q4-6H PRN (Reason: pain) Qty: 14 0RF albuterol sulfate 90 mcg/actuation HFA aerosol inhaler 1 inh inhalation QID PRN (Reason: shortness of breath or wheezing) Qty: 8.5 0RF azithromycin 250 mg tablet See Rx Instructions .ROUTE .COMPLEX Qty: 6 0RF Rx Instructions: take 500 mg today (day 1), then 250 mg for 4 days (days 2-5) codeine-guaifenesin [Guaifenesin AC] 10-100 mg/5 mL liquid 5 ml PO Q6H PRN (Reason: cold symptoms) Qty: 120 0RF ondansetron 4 mg tablet,disintegrating 4 mg PO Q8H PRN (Reason: nausea and vomiting) Qty: 20 0RF Stand Alone Forms: Work/School Release Interventions: ED Discharge Assessment Last Done: 01/18/22 19:39 Discharge Date/Time: 01/18/22 19:40
== END 2022-01-18 19:40 | disposition home or self-care (01) ==
PROVIDERS: Emergency Provider Emergency Medicine
DX: J32.8 Other chronic sinusitis (principal); Z20.822 Contact with and (suspected) exposure to COVID-19; F12.90 Cannabis use, unspecified, uncomplicated
CPT/HCPCS: 87502; 87635; 99283

== ENCOUNTER 2022-03-09 04:17 | Emergency (ER) | payer OTHER, SELFPAY ==
[2022-03-09 04:26] VITALS: BP 149/61; PULSE 73; RESP 18; TEMP 36.9; O2SAT 97; BMI 26.4
--- NOTE | 2022-03-09 06:09 | ED.BACK ---
HPI - Back Pain/Injury General Chief Complaint: Back Pain/Injury Stated Complaint: back pain Time Seen by Provider: 03/09/22 05:35 Source: patient Mode of arrival: ambulatory History of Present Illness HPI Narrative: 32-year-old male without significant past medical history presents with bending over to put on his socks and then developing intense lower right back pain that is nonradiating in nature and is not associated with any groin numbness or bowel or bladder issues. He denies any fever, chills, dysuria. Related Data Previous Rx's Medication Instructions Recorded oxymetazoline 0.05 % nasal mist 2 spray intranasal Q12H PRN nasal 07/05/20 (Afrin (oxymetazoline)) congestion 3 days #15 mL amoxicillin 500 mg capsule 500 mg PO BID #20 caps 07/09/20 tramadol 50 mg tablet 50 mg PO BID PRN pain #14 tabs 07/09/20 amoxicillin 875 mg-potassium 1 tab PO Q12H 10 days #20 tabs 09/24/20 clavulanate 125 mg tablet (Augmentin) naproxen 500 mg tablet 500 mg PO BID PRN pain #20 tabs 09/24/20 oxycodone-acetaminophen 5 mg-325 1 tab PO TID PRN pain (scale score 09/24/20 mg tablet (Percocet) 7-10) #9 tabs oxycodone-acetaminophen 5 mg-325 1 tab PO Q4-6H PRN pain #14 tabs 11/09/21 mg tablet (Percocet) albuterol sulfate 90 mcg/actuation 1 inh inhalation QID PRN shortness 08/23/21 aerosol inhaler of breath or wheezing #8.5 grams azithromycin 250 mg tablet See Rx Instructions PO .COMPLEX #6 08/23/21 tabs codeine 10 mg-guaifenesin 100 mg/5 5 ml PO Q6H PRN cold symptoms #120 08/23/21 mL oral liquid (Guaifenesin AC) mL ondansetron 4 mg disintegrating 4 mg PO Q8H PRN nausea and 10/30/21 tablet vomiting #20 tabs azithromycin 250 mg tablet See Rx Instructions PO .COMPLEX #6 01/18/22 tabs cyclobenzaprine 5 mg tablet 5 mg PO TID PRN muscle spasm #6 03/09/22 tabs ketorolac 10 mg tablet 10 mg PO Q6H PRN pain 5 days #20 03/09/22 tabs Allergies Allergy/AdvReac Type Severity Reaction Status Date / Time No Known Allergies Allergy Verified 03/09/22 04:25 Review of Systems Review of Systems: Pertinent positives and negatives as stated in HPI 10 point review of systems is otherwise negative. [facility] Past Medical History Source: nursing notes reviewed Medical History Patient denies medical problems Family History Family History Other Family history non-contributory Social History Social History Household Members: Family Alcohol intake: current Alcohol intake frequency: holidays/special occasions only Patient Tobacco Use Status: Never used Tobacco Substance Use Type: Marijuana Advance Directives: No Advance Directives Information Provided: Yes Physical Exam Vital Signs: Vital Signs: Last Vital Signs Temp 98.4 F 03/09/22 04:26 Pulse 73 03/09/22 04:26 Resp 18 03/09/22 04:26 BP 149/61 H 03/09/22 04:26 Pulse Ox 97 03/09/22 04:26 O2 Del Method 03/09/22 04:26 BMI result Body Mass Index 26.4 VITAL SIGNS: Reviewed. GENERAL: Well developed, well nourished, in no acute distress. HEAD: Normocephalic/atraumatic EYES: PERRLA, EOMI EARS: Ext canals without abnormality OROPHARYNX: no oral lesions noted, posterior pharynx clear LUNGS: Normal breath sounds. No adventitious sounds or accessory muscle use. SpO2<97> CARDIOVASCULAR: Regular rate and rhythm without noted murmurs ABDOMEN: Soft, non-tender, non-distended with bowel sounds. BACK: no midline vertebral tenderness or step-offs, muscle spasm noted MUSCULOSKELETAL: No tenderness, deformities, or effusions noted on gross inspection. EXTREMITIES: No cyanosis, clubbing or edema. SKIN: Inspection of the skin reveals no rashes NEUROLOGIC: Alert and oriented x 4. Strength and sensation to light touch were grossly intact x 4. Course Course Course Narrative: 42-year-old male with history and clinical presentation consistent with back pain, muscle spasm and no clinical suspicion or history to suggest UTI/pyelonephritis/ infectious etiology. Patient provided with combination analgesics as well as lidocaine patch and as as no one to drive him he was informed that a prescription for muscle relaxant will be sent to his pharmacy. On re-evaluation patient is improved and his symptoms and will be discharged home. Discharge Plan Discharge Clinical Impression: Back pain, Muscle spasm Patient Disposition: Home, Self-Care Instructions: Muscle Spasm (ED), Back Pain (ED) Additional Instructions: 1. Tylenol 1000 mg, orally, every 6 hours as needed for pain control. Do not exceed 4000 mg within 24 hours. 2. Lidocaine patch, apply to area of maximal tenderness as directed on the outside packaging. 3. You have 2 prescriptions that will assist in resolution of your back pain. Please go to the pharmacy and pick them up. Return to the ER for worsening symptoms. Prescriptions: New ketorolac 10 mg tablet 10 mg PO Q6H PRN (Reason: pain) 5 Days Qty: 20 0RF Rx Instructions: 1. Patient received Toradol here in the emergency room. 2. Please instruct patient to stop all other anti-inflammatories. cyclobenzaprine 5 mg tablet 5 mg PO TID PRN (Reason: muscle spasm) Qty: 6 0RF No Action amoxicillin 500 mg capsule 500 mg PO BID Qty: 20 0RF tramadol 50 mg tablet 50 mg PO BID PRN (Reason: pain) Qty: 14 0RF Afrin (oxymetazoline) 0.05 % mist 2 spray intranasal Q12H PRN (Reason: nasal congestion) 3 Days Qty: 15 0RF amoxicillin-pot clavulanate [Augmentin] 875-125 mg tablet 1 tab PO Q12H 10 Days Qty: 20 0RF naproxen 500 mg tablet 500 mg PO BID PRN (Reason: pain) Qty: 20 0RF oxycodone-acetaminophen [Percocet] 5-325 mg tablet 1 tab PO TID PRN (Reason: pain (scale score 7-10)) Qty: 9 0RF oxycodone-acetaminophen [Percocet] 5-325 mg tablet 1 tab PO Q4-6H PRN (Reason: pain) Qty: 14 0RF albuterol sulfate 90 mcg/actuation HFA aerosol inhaler 1 inh inhalation QID PRN (Reason: shortness of breath or wheezing) Qty: 8.5 0RF azithromycin 250 mg tablet See Rx Instructions .ROUTE .COMPLEX Qty: 6 0RF Rx Instructions: take 500 mg today (day 1), then 250 mg for 4 days (days 2-5) codeine-guaifenesin [Guaifenesin AC] 10-100 mg/5 mL liquid 5 ml PO Q6H PRN (Reason: cold symptoms) Qty: 120 0RF ondansetron 4 mg tablet,disintegrating 4 mg PO Q8H PRN (Reason: nausea and vomiting) Qty: 20 0RF azithromycin 250 mg tablet See Rx Instructions .ROUTE .COMPLEX Qty: 6 0RF Rx Instructions: For 250 mg dose pack: take 500 mg today (day 1), then 250 mg for 4 days (days 2-5) Stand Alone Forms: Work/School Release
[2022-03-09] MEDS: Acetaminophen 325 MG TABLET 975 MG PO (06:17)
[2022-03-09] MEDS: Lidocaine 4 % Patch ADH..PATCH 1 PATCH TRANSDERMA (06:18)
[2022-03-09] MEDS: Ketorolac Tromethamine 15 MG/ML VIAL IM (06:18)
== END 2022-03-09 06:25 | disposition home or self-care (01) ==
PROVIDERS: Emergency Provider Student in an Organized Health Care Education/Training Program
DX: M54.50 Low back pain, unspecified (principal); M62.830 Muscle spasm of back; F12.90 Cannabis use, unspecified, uncomplicated
CPT/HCPCS: 96372; 99283; 99284; J1885

== ENCOUNTER 2022-03-10 22:38 | Emergency (ER) | payer OTHER, SELFPAY | END 2022-03-11 01:45 | disposition left against medical advice (07) | PROVIDERS: Emergency Provider Emergency Medicine | DX: M54.9 Dorsalgia, unspecified (principal); F12.90 Cannabis use, unspecified, uncomplicated ==

== ENCOUNTER 2022-03-11 05:46 | Emergency (ER) | payer OTHER, SELFPAY ==
--- NOTE | ~2022-03-11 | XR_ITS ---
EXAMINATION: XR LUMBOSACRAL SPINE CLINICAL INFORMATION: Pain COMPARISON: None TECHNIQUE: Three views of the lumbosacral spine. FINDINGS: 5 nonrib-bearing lumbar-type vertebral bodies. No acute visible fracture or dislocation. Vertebral body heights and disc spaces are maintained. Posterior elements are intact. Paraspinal soft tissues are unremarkable. Visualized bowel gas is unremarkable. XR/XR lumbar spine 2-3V IMPRESSION: No acute visible fracture or dislocation.
[2022-03-11 06:40] VITALS: BP 139/77; PULSE 71; RESP 15; TEMP 35.9; O2SAT 94; BMI 26.4
--- NOTE | 2022-03-11 06:49 | PC.NURSE ---
pt offerred tylenol, advil, icepack. refused all
--- NOTE | 2022-03-11 09:34 | ED_ITS ---
HPI - Back Pain/Injury General Chief Complaint: Back Pain/Injury Stated Complaint: Back pain Time Seen by Provider: 03/11/22 07:50 Source: patient Mode of arrival: ambulatory History of Present Illness HPI Narrative: 32-year-old male presents with back pain, he states that the medications that he was provided are ?not doing anything? and endorses that he has not contacted his primary care provider. He denies any difficulty with urination, fevers, chills but states that his back is still significantly painful. Related Data Previous Rx's Medication Instructions Recorded oxymetazoline 0.05 % nasal mist 2 spray intranasal Q12H PRN nasal 07/05/20 (Afrin (oxymetazoline)) congestion 3 days #15 mL amoxicillin 500 mg capsule 500 mg PO BID #20 caps 07/09/20 tramadol 50 mg tablet 50 mg PO BID PRN pain #14 tabs 07/09/20 amoxicillin 875 mg-potassium 1 tab PO Q12H 10 days #20 tabs 09/24/20 clavulanate 125 mg tablet (Augmentin) naproxen 500 mg tablet 500 mg PO BID PRN pain #20 tabs 09/24/20 oxycodone-acetaminophen 5 mg-325 1 tab PO TID PRN pain (scale score 09/24/20 mg tablet (Percocet) 7-10) #9 tabs oxycodone-acetaminophen 5 mg-325 1 tab PO Q4-6H PRN pain #14 tabs 11/09/20 mg tablet (Percocet) albuterol sulfate 90 mcg/actuation 1 inh inhalation QID PRN shortness 08/23/21 aerosol inhaler of breath or wheezing #8.5 grams azithromycin 250 mg tablet See Rx Instructions PO .COMPLEX #6 08/23/21 tabs codeine 10 mg-guaifenesin 100 mg/5 5 ml PO Q6H PRN cold symptoms #120 08/23/21 mL oral liquid (Guaifenesin AC) mL ondansetron 4 mg disintegrating 4 mg PO Q8H PRN nausea and 10/30/21 tablet vomiting #20 tabs azithromycin 250 mg tablet See Rx Instructions PO .COMPLEX #6 01/18/22 tabs cyclobenzaprine 5 mg tablet 5 mg PO TID PRN muscle spasm #6 03/09/22 tabs ketorolac 10 mg tablet 10 mg PO Q6H PRN pain 5 days #20 03/09/22 tabs cyclobenzaprine 10 mg tablet 10 mg PO BEDTIME PRN muscle spasm 03/11/22 #4 tabs Allergies Allergy/AdvReac Type Severity Reaction Status Date / Time No Known Allergies Allergy Verified 03/09/22 04:25 Review of Systems Review of Systems: Pertinent positives and negatives as stated in HPI 10 point review of systems is otherwise negative. [facility] Past Medical History Source: nursing notes reviewed Medical History Patient denies medical problems Family History Family History Other Family history non-contributory Social History Social History Household Members: Family Alcohol intake: current Alcohol intake frequency: holidays/special occasions only Patient Tobacco Use Status: Never used Tobacco Substance Use Type: Marijuana Advance Directives: No Advance Directives Information Provided: No Physical Exam Vital Signs: Vital Signs: Last Vital Signs Temp 96.7 F L 03/11/22 06:40 Pulse 71 03/11/22 06:40 Resp 15 03/11/22 06:40 BP 139/77 03/11/22 06:40 Pulse Ox 94 03/11/22 06:40 O2 Del Method 03/11/22 06:40 BMI result Body Mass Index 26.4 VITAL SIGNS: Reviewed. GENERAL: Well developed, well nourished, in no acute distress. HEAD: Normocephalic/atraumatic EYES: PERRLA, EOMI EARS: Ext canals without abnormality OROPHARYNX: no oral lesions noted, posterior pharynx clear LUNGS: Normal breath sounds. No adventitious sounds or accessory muscle use. SpO2<94> CARDIOVASCULAR: Regular rate and rhythm without noted murmurs ABDOMEN: Soft, non-tender, non-distended with bowel sounds. BACK: Muscle spasm noted on the left lower paraspinal MUSCULOSKELETAL: No tenderness, deformities, or effusions noted on gross ins pection. EXTREMITIES: No cyanosis, clubbing or edema. SKIN: Inspection of the skin reveals no rashes NEUROLOGIC: Alert and oriented x 4. Strength and sensation to light touch were grossly intact x 4. Course Course Course Narrative: 32-year-old male with history and clinical presentation consistent with muscle strain and spasm, I recently saw this patient when he presented at that time he appeared more uncomfortable and at this visit he appears calm and is resting comfortably in the gurney without overt signs of distress. X-rays were obtained for additional evaluation without acute findings noted. Patient was highly encouraged to follow-up with his primary care provider to discuss possible physical therapy referral, he was provided with additional muscle relaxants and otherwise discharged home in stable condition and instructed to continue with the medications. Discharge Plan Discharge Clinical Impression: Strain of lumbar region Patient Disposition: Home, Self-Care Instructions: Low Back Strain (ED), Back Pain (ED), Lower Back Exercises (ED) Additional Instructions: 1. Tylenol 1000 mg, orally, every 6 hours as needed for pain control. Do not exceed 4000 mg within 24 hours. Please continue with the remaining course of Toradol and ensure that you take it with either milk or food. 2. Lidocaine patch, apply to area of maximal tenderness as directed on the outside packaging. 3. Recommend application of either heat or ice, whichever works well for you, as an additional adjunct to your discomfort. Would recommend gentle stretching as well. 4. Please call your primary care provider for the clinic to set up an appointment for re-evaluation and referral for physical therapy. Return to the ER for worsening symptoms. Prescriptions: New cyclobenzaprine 10 mg tablet 10 mg PO BEDTIME PRN (Reason: muscle spasm) Qty: 4 0RF No Action amoxicillin 500 mg capsule 500 mg PO BID Qty: 20 0RF tramadol 50 mg tablet 50 mg PO BID PRN (Reason: pain) Qty: 14 0RF Afrin (oxymetazoline) 0.05 % mist 2 spray intranasal Q12H PRN (Reason: nasal congestion) 3 Days Qty: 15 0RF amoxicillin-pot clavulanate [Augmentin] 875-125 mg tablet 1 tab PO Q12H 10 Days Qty: 20 0RF naproxen 500 mg tablet 500 mg PO BID PRN (Reason: pain) Qty: 20 0RF oxycodone-acetaminophen [Percocet] 5-325 mg tablet 1 tab PO TID PRN (Reason: pain (scale score 7-10)) Qty: 9 0RF oxycodone-acetaminophen [Percocet] 5-325 mg tablet 1 tab PO Q4-6H PRN (Reason: pain) Qty: 14 0RF albuterol sulfate 90 mcg/actuation HFA aerosol inhaler 1 inh inhalation QID PRN (Reason: shortness of breath or wheezing) Qty: 8.5 0RF azithromycin 250 mg tablet See Rx Instructions .ROUTE .COMPLEX Qty: 6 0RF Rx Instructions: take 500 mg today (day 1), then 250 mg for 4 days (days 2-5) codeine-guaifenesin [Guaifenesin AC] 10-100 mg/5 mL liquid 5 ml PO Q6H PRN (Reason: cold symptoms) Qty: 120 0RF ketorolac 10 mg tablet 10 mg PO Q6H PRN (Reason: pain) 5 Days Qty: 20 0RF Rx Instructions: 1. Patient received Toradol here in the emergency room. 2. Please instruct patient to stop all other anti-inflammatories. cyclobenzaprine 5 mg tablet 5 mg PO TID PRN (Reason: muscle spasm) Qty: 6 0RF ondansetron 4 mg tablet,disintegrating 4 mg PO Q8H PRN (Reason: nausea and vomiting) Qty: 20 0RF azithromycin 250 mg tablet See Rx Instructions .ROUTE .COMPLEX Qty: 6 0RF Rx Instructions: For 250 mg dose pack: take 500 mg today (day 1), then 250 mg for 4 days (days 2-5) Stand Alone Forms: Work/School Release
== END 2022-03-11 10:23 | disposition home or self-care (01) ==
PROVIDERS: Emergency Provider Student in an Organized Health Care Education/Training Program
DX: M54.50 Low back pain, unspecified (principal); Z79.899 Other long term (current) drug therapy
CPT/HCPCS: 72100; 99282; 99283

== ENCOUNTER 2022-09-09 08:48 | Emergency (ER) | payer OTHER, SELFPAY ==
--- NOTE | ~2022-09-09 | XR_ITS ---
EXAMINATION: XR CHEST CLINICAL INFORMATION: Cough and congestion COMPARISON: 08/23/2021 TECHNIQUE: 2 views of the chest were obtained. FINDINGS: No significant abnormality is noted involving the heart, lungs, mediastinum, bony thorax or soft tissues. XR/XR chest 2V IMPRESSION: Unremarkable examination.
[2022-09-09 08:54] VITALS: BP 127/73; PULSE 66; RESP 16; TEMP 36.4; O2SAT 98; BMI 24.4
--- NOTE | 2022-09-09 09:13 | ED_ITS ---
HPI - General Adult General Chief complaint: General Medical Stated complaint: congestion chest pain Time Seen by Provider: 09/09/22 09:07 Source: patient Limitations: no limitations History of Present Illness HPI narrative: 32-year-old male complaining nasal congestion with nasal discharge is screening in nature. Patient also complaining of a slight cough with chest congestion. Symptoms are gadv-qi-vacobgze patient is without nausea vomiting fever chills. Positive sick contacts at home. Patient denies any COVID-19 exposure. Symptoms worse at night. Patient does have a history of inhalation with marijuana only not tobacco. No other complaints this time. Related Data Previous Rx's Medication Instructions Recorded oxymetazoline 0.05 % nasal mist 2 spray intranasal Q12H PRN nasal 07/05/20 (Afrin (oxymetazoline)) congestion 3 days #15 mL amoxicillin 500 mg capsule 500 mg PO BID #20 caps 07/09/20 tramadol 50 mg tablet 50 mg PO BID PRN pain #14 tabs 07/09/20 amoxicillin 875 mg-potassium 1 tab PO Q12H 10 days #20 tabs 09/24/20 clavulanate 125 mg tablet (Augmentin) naproxen 500 mg tablet 500 mg PO BID PRN pain #20 tabs 09/24/20 oxycodone-acetaminophen 5 mg-325 1 tab PO TID PRN pain (scale score 09/24/20 mg tablet (Percocet) 7-10) #9 tabs oxycodone-acetaminophen 5 mg-325 1 tab PO Q4-6H PRN pain #14 tabs 11/09/20 mg tablet (Percocet) albuterol sulfate 90 mcg/actuation 1 inh inhalation QID PRN shortness 08/23/21 aerosol inhaler of breath or wheezing #8.5 grams azithromycin 250 mg tablet See Rx Instructions PO .COMPLEX #6 08/23/21 tabs codeine 10 mg-guaifenesin 100 mg/5 5 ml PO Q6H PRN cold symptoms #120 08/23/21 mL oral liquid (Guaifenesin AC) mL ondansetron 4 mg disintegrating 4 mg PO Q8H PRN nausea and 10/30/21 tablet vomiting #20 tabs azithromycin 250 mg tablet See Rx Instructions PO .COMPLEX #6 01/18/22 tabs cyclobenzaprine 5 mg tablet 5 mg PO TID PRN muscle spasm #6 03/09/22 tabs ketorolac 10 mg tablet 10 mg PO Q6H PRN pain 5 days #20 03/09/22 tabs cyclobenzaprine 10 mg tablet 10 mg PO BEDTIME PRN muscle spasm 03/11/22 #4 tabs albuterol sulfate 90 mcg/actuation 2 puff inhalation Q4-6H PRN 09/09/22 aerosol inhaler (Ventolin HFA) wheezing #8.5 grams benzonatate 100 mg capsule 100 mg PO TID PRN cough #20 caps 09/09/22 prednisone 20 mg tablet 40 mg PO DAILY 5 days #10 tabs 09/09/22 Allergies Allergy/AdvReac Type Severity Reaction Status Date / Time No Known Allergies Allergy Verified 03/09/22 04:25 Review of Systems Review of Systems: Constitutional : No Weight loss, No Fever, No Chills, No Night Sweats, No Fatigue, No Malaise ENT/Mouth : Positive nasal congestion, positive slight sore throat, no ear pain Eyes: no vision changes Cardiovascular : chest wall pain with coughing, no dyspnea, cough is productive from yellow to green sputum Respiratory : positive cough positive sputum yellow to green Gastrointestinal : No Nausea, No Vomiting, No Diarrhea Musculoskeletal : No joint pain, No Myalgias, No Joint SwellingSkin : No Skin Lesions, No rash Neuro : No Weakness, No Numbness, No Paresthesias, No Loss of Consciousness, No Dizziness, No Headache Psych : No Anxiety/Panic, No Depression, No SI/HI/AH/VH, No Social Issues, Heme/Lymph: No Bruising, No Bleeding,No Lymphadenopathy Endocrine : No Polyuria, No Polydipsia, No Temperature Intolerance [facility] Past Medical History Medical History Patient denies medical problems Family History Family History Other Family history non-contributory Social History Social History Household Members: Family Alcohol intake: current Alcohol intake frequency: holidays/special occasions only Patient Tobacco Use Status: Never used Tobacco Substance Use Type: Marijuana Advance Directives: No Physical Exam ED Vital Signs: Vital Signs - 24 hr 09/09/22 08:54 Temperature 97.6 F Pulse Rate 66 Respiratory Rate 16 Blood Pressure 127/73 Pulse Oximetry 98 Oxygen Delivery Method Room Air BMI result Body Mass Index 24.4 vital signs have been reviewed as normal and appeared to be correct. Blood pressure normal. Heart rate normal. Respiration rate normal. Temperature normal. Oxygen saturation normal. Appearance: Alert. Oriented X3. No acute distress. Head: Normal external exam. Normocephalic. Atraumatic. Eyes: PERRLA. EOMI. Conjunctiva and sclera normal. Eyelids normal. ENT: no erythema noted in the oropharynx, uvula is midline, no evidence of peritonsillar abscess. No exudate. Neck: Soft supple full range of motion, no nuchal rigidity CVS: Heart regular rate and rhythm no murmurs and rubs Respiratory: breath sounds slightly coarse with good aeration no accessory muscle use. Abdomen: Soft nontender no rebound or guarding positive bowel sounds Back: No CVA tenderness. Full range of motion noted. Skin: Skin warm and dry. Normal skin color. Normal skin turgor. No rashes/lesions/lacerations noted. Extremities: No lower extremity edema. Extremities exhibit normal range of motion. Extremities nontender. Neuro: Oriented X 3. No motor deficit. No sensory deficit. Reflexes normal. Course Course Course Narrative: COVID-19 Influenza Sinusitis Bronchitis Pneumonia Medical Decision Making Medical Decision Making MDM Narrative: 32-year-old male with a few day history of congestion, cough history of pneumonia in the past. Positive for auction of sputum and nasal discharge that is green in nature. Symptoms consistent viral URI versus bronchitis/ pneumonia. Respiratory swab is pending at this time chest x-ray is also pending vital signs are otherwise stable. Patient does have history of asthma and COVID-19 the past. Chest x-ray is negative Respiratory swab is negative symptoms consistent with viral acute bronchitis will treat symptomatically at this time. Lab Data Labs: Lab Results 09/09/22 Range/Units 09:24 Influenza Type A (PCR) NEGATIVE (Negative) Influenza Type B (PCR) NEGATIVE (Negative) RSV RNA Qual (PCR) NEGATIVE (Negative) SARS-CoV-2 RNA (RT-PCR) NEGATIVE (Negative) Radiology Impression Radiologist Impression: 1 ? [facility] My List [facility] ?3? To Be Seen ?4? ED ?15? [facility] ?3? [facility] ?5? Karl Diaz? ? EM Bed 1? Upper Respiratory Symptoms? 9 M? Ready for Discharge? 4? ?? 48m? ?? REG ER? I-Signed? Business Initiatives Manager Needed? ?? 1 of 2 interper needed Polina Miller Michael headache congestion? Order BP 118/64 Pulse 101 Resp 20 Temp 98.1 F O2 Sat 97% (RA) Pam Diaz? ? [facility] [place] Bed 1 - [facility]? Upper Respiratory Symptoms? 6 F? Ready for Discharge? 4? ?? 47m? ?? REG ER? I-Signed? 2 of 2 Interperter needed Polina Miller Michael headache congestion? Order BP 111/58 Pulse 74 Resp 18 Temp 97.6 F O2 Sat 97% (RA) Lamore,River? ? [facility] [place] Bed 2 - [facility]? General Medical? 32 M? With Doctor? 4? ?? 1h 5m? ?? REG ER? Draft? Polina Miller,Edwin congestion chest pain? Order BP 127/73 Pulse 66 Resp 16 Temp 97.6 F O2 Sat 98% (RA) X-Ray Serology Coy Muniz? ? [facility] [place] Bed 4 - [facility]? Abdominal Pain? 20 M? With Doctor? 4? ?? 2h 20m? ?? REG ER? Draft? [place] Polina Miller Sign Up Yoon Lopez J abd pain weak? Order BP 121/65 Pulse 65 Resp 16 Temp 97.6 F O2 Sat 97% (RA) ECG 12 farideh... ?Chemistry ?Hematology Serology [facility] Clare White? ? [facility] EX2 - PVE[facility]? No Chief Complaint? 54 F? In Room? 43m? ?? REG ER? No Document? Interperter needed ? Sign Up buttocks burning itchy? Order BP 137/96 Pulse 104 Resp 16 Temp 98.2 F O2 Sat 97% (RA) X-Ray - XR chest 2V Lamore,River??32??M??1990 ? Allergy/Adv: No Known Allergies Close Imaging ACTIVITY DATE EXAM STATUS AUTHOR 09/09/22 09:18 Chest X-Ray Signed Brett Ye Imaging Reports Close Chest X-Ray (Signed) Brett Ye - 09/09/22 Launch?Image [address] [address] XRay Report Signed Patient: River Cm MR#: [id number] : 1990 Acct:[id number] Age/Sex: 32 / M ADM Date: 09/09/22 Loc: HO.ED Attending Dr: Ordering Physician: Edwin Hodges Date of Service: 09/09/22 Procedure(s): XR chest 2V Accession Number(s): [id number] cc: Edwin Hodges ~ EXAMINATION: XR CHEST CLINICAL INFORMATION: Cough and congestion COMPARISON: 08/23/2021 TECHNIQUE: 2 views of the chest were obtained. FINDINGS: No significant abnormality is noted involving the heart, lungs, mediastinum, bony thorax or soft tissues. XR/XR chest 2V IMPRESSION: Unremarkable examination. Dictated By: Brett Ye MD Signed By: <Electronically signed by Brett Ye MD in OV> 09/09/22927 DD/ 7 TD/TT:? Cruise Counselor: Discharge Plan Discharge Clinical Impression: Bronchitis Patient Disposition: Home, Self-Care Instructions: Acute Bronchitis (ED) Additional Instructions: Chest x-ray was negative for pneumonia Increase fluids rest Symptoms are consistent with acute bronchitis which is viral in nature so no antibiotics needed at this time will plan to treat your symptoms at this time. Return if symptoms worsen. Follow-up with PCP Prescriptions: New prednisone 20 mg tablet 40 mg PO DAILY 5 Days Qty: 10 0RF albuterol sulfate [Ventolin HFA] 90 mcg/actuation HFA aerosol inhaler 2 puff inhalation Q4-6H PRN (Reason: wheezing) Qty: 8.5 0RF benzonatate 100 mg capsule 100 mg PO TID PRN (Reason: cough) Qty: 20 0RF No Action amoxicillin 500 mg capsule 500 mg PO BID Qty: 20 0RF tramadol 50 mg tablet 50 mg PO BID PRN (Reason: pain) Qty: 14 0RF Afrin (oxymetazoline) 0.05 % mist 2 spray intranasal Q12H PRN (Reason: nasal congestion) 3 Days Qty: 15 0RF amoxicillin-pot clavulanate [Augmentin] 875-125 mg tablet 1 tab PO Q12H 10 Days Qty: 20 0RF naproxen 500 mg tablet 500 mg PO BID PRN (Reason: pain) Qty: 20 0RF oxycodone-acetaminophen [Percocet] 5-325 mg tablet 1 tab PO TID PRN (Reason: pain (scale score 7-10)) Qty: 9 0RF oxycodone-acetaminophen [Percocet] 5-325 mg tablet 1 tab PO Q4-6H PRN (Reason: pain) Qty: 14 0RF albuterol sulfate 90 mcg/actuation HFA aerosol inhaler 1 inh inhalation QID PRN (Reason: shortness of breath or wheezing) Qty: 8.5 0RF azithromycin 250 mg tablet See Rx Instructions .ROUTE .COMPLEX Qty: 6 0RF Rx Instructions: take 500 mg today (day 1), then 250 mg for 4 days (days 2-5) codeine-guaifenesin [Guaifenesin AC] 10-100 mg/5 mL liquid 5 ml PO Q6H PRN (Reason: cold symptoms) Qty: 120 0RF ketorolac 10 mg tablet 10 mg PO Q6H PRN (Reason: pain) 5 Days Qty: 20 0RF Rx Instructions: 1. Patient received Toradol here in the emergency room. 2. Please instruct patient to stop all other anti-inflammatories. cyclobenzaprine 5 mg tablet 5 mg PO TID PRN (Reason: muscle spasm) Qty: 6 0RF ondansetron 4 mg tablet,disintegrating 4 mg PO Q8H PRN (Reason: nausea and vomiting) Qty: 20 0RF azithromycin 250 mg tablet See Rx Instructions .ROUTE .COMPLEX Qty: 6 0RF Rx Instructions: For 250 mg dose pack: take 500 mg today (day 1), then 250 mg for 4 days (days 2-5) cyclobenzaprine 10 mg tablet 10 mg PO BEDTIME PRN (Reason: muscle spasm) Qty: 4 0RF Stand Alone Forms: Work/School Release
[2022-09-09 10:09] LABS: Influenza A PCR NEGATIVE (Negative); Influenza B PCR NEGATIVE (Negative); Resp Syncy Virus RNA Qual PCR NEGATIVE (Negative); SARS COV2 PCR INHOUSE NEGATIVE (Negative)
== END 2022-09-09 10:48 | disposition home or self-care (01) ==
PROVIDERS: Physician Assistant; Emergency Provider Student in an Organized Health Care Education/Training Program
DX: J40 Bronchitis, not specified as acute or chronic (principal); R07.89 Other chest pain; R09.82 Postnasal drip; R05.9 Cough, unspecified; Z20.828 Contact with and (suspected) exposure to other viral communicable diseases; Z20.822 Contact with and (suspected) exposure to COVID-19
CPT/HCPCS: 0241U; 71046; 99282; 99283

== ENCOUNTER 2022-09-13 08:51 | Emergency (ER) | payer OTHER, SELFPAY ==
--- NOTE | ~2022-09-13 | XR_ITS ---
EXAMINATION: XR CHEST CLINICAL INFORMATION: Chest pain. COMPARISON: 09/09/2022 chest radiographs. TECHNIQUE: 2 views of the chest were obtained. FINDINGS: No significant abnormality is noted involving the heart, lungs, mediastinum, bony thorax or soft tissues. XR/XR chest 2V IMPRESSION: No acute cardiopulmonary process.
[2022-09-13 08:53] VITALS: BP 141/76; PULSE 95; RESP 18; TEMP 36.6; O2SAT 99; BMI 24.4
--- NOTE | 2022-09-13 09:31 | ED_ITS ---
HPI - General Adult General Chief complaint: General Medical Stated complaint: vomiting Time Seen by Provider: 09/13/22 09:11 Source: patient Mode of arrival: ambulatory Limitations: no limitations History of Present Illness HPI narrative: 32-year-old male with no past medical history presents to ED for vomiting, body aches, and diarrhea. He states symptoms have been occurring for the past 2 days. Patient was seen here recently for bronchitis at that time he had coughing and nasal congestion and after being discharged 2 days later he started having the symptoms of vomiting, body aches, and diarrhea. Patient states also having chills. Patient denies any blood in stool or blood in vomiting. Patient's main complaint is vomiting and diarrhea. Patient denies any eating any bad food, recent travel outside the country, or anyone at home being sick. Patient states still having left-sided chest pain described as a burning sensation since diagnosed with bronchitis when he had a cough. Patient states still having coughing also. Related Data Previous Rx's Medication Instructions Recorded oxymetazoline 0.05 % nasal mist 2 spray intranasal Q12H PRN nasal 07/05/20 (Afrin (oxymetazoline)) congestion 3 days #15 mL amoxicillin 500 mg capsule 500 mg PO BID #20 caps 07/09/20 tramadol 50 mg tablet 50 mg PO BID PRN pain #14 tabs 07/09/20 amoxicillin 875 mg-potassium 1 tab PO Q12H 10 days #20 tabs 09/24/20 clavulanate 125 mg tablet (Augmentin) naproxen 500 mg tablet 500 mg PO BID PRN pain #20 tabs 09/24/20 oxycodone-acetaminophen 5 mg-325 1 tab PO TID PRN pain (scale score 09/24/20 mg tablet (Percocet) 7-10) #9 tabs oxycodone-acetaminophen 5 mg-325 1 tab PO Q4-6H PRN pain #14 tabs 11/09/ mg tablet (Percocet) albuterol sulfate 90 mcg/actuation 1 inh inhalation QID PRN shortness 08/23/21 aerosol inhaler of breath or wheezing #8.5 grams azithromycin 250 mg tablet See Rx Instructions PO .COMPLEX #6 08/23/21 tabs codeine 10 mg-guaifenesin 100 mg/5 5 ml PO Q6H PRN cold symptoms #120 08/23/21 mL oral liquid (Guaifenesin AC) mL ondansetron 4 mg disintegrating 4 mg PO Q8H PRN nausea and 10/30/21 tablet vomiting #20 tabs azithromycin 250 mg tablet See Rx Instructions PO .COMPLEX #6 01/18/22 tabs cyclobenzaprine 5 mg tablet 5 mg PO TID PRN muscle spasm #6 03/09/22 tabs ketorolac 10 mg tablet 10 mg PO Q6H PRN pain 5 days #20 03/09/22 tabs cyclobenzaprine 10 mg tablet 10 mg PO BEDTIME PRN muscle spasm 03/11/22 #4 tabs albuterol sulfate 90 mcg/actuation 2 puff inhalation Q4-6H PRN 09/09/22 aerosol inhaler (Ventolin HFA) wheezing #8.5 grams benzonatate 100 mg capsule 100 mg PO TID PRN cough #20 caps 09/09/22 prednisone 20 mg tablet 40 mg PO DAILY 5 days #10 tabs 09/09/22 loperamide 2 mg capsule 2 mg PO QID PRN loose stool 2 days 09/13/22 #8 caps ondansetron 4 mg disintegrating 4 mg PO Q8H PRN nausea and 09/13/22 tablet vomiting 3 days #9 tabs Allergies Allergy/AdvReac Type Severity Reaction Status Date / Time No Known Allergies Allergy Verified 03/09/22 04:25 Review of Systems Review of Systems: , vomiting, diarrhea, and body aches. Yes all other systems are reviewed and are negative PMFSH Past Medical History Medical History Patient denies medical problems Family History Family History Other Family history non-contributory Social History Social History Household Members: Family Alcohol intake: never Patient Tobacco Use Status: Never used Tobacco Smoked in Last 30 Days: No Use of substances other than those prescribed or required for medical reasons: No Substance Use Type: Marijuana Advance Directives: No Advance Directives Information Provided: No Physical Exam ED Vital Signs: Vital Signs - 24 hr 09/13/22 08:53 09/13/22 11:49 Temperature 97.8 F 99.2 F Pulse Rate 95 99 Respiratory Rate 18 15 Blood Pressure 141/76 H 127/68 Pulse Oximetry 99 99 Oxygen Delivery Method Room Air Room Air BMI result Body Mass Index 24.4 Const General: cooperative, healthy appearing, comfortable, no acute distress, well developed, alert, awake and Physically active Orientation/consciousness: oriented to person, oriented to place, oriented to time and patient oriented x3 [facility] Head: Yes normal to inspection, Yes No palpable skull fracture present, Yes normocephalic, Yes atraumatic and No abrasion Ears: hearing grossly normal bilaterally, external ears normal, TM's normal bilaterally, EAC's normal, mastoids normal and no periauricular adenopathy Eyes General: appearance normal, both eyes and all related structures Neck Neck: Yes normal visual inspection, Yes full ROM, Yes no lymphadenopathy, Yes no meningeal signs, Yes trachea midline, Yes supple, No anterior neck swelling and No submandibular swelling Chest Chest palpation & inspection: normal inspection of the chest and normal palpation of entire chest wall Resp Effort & Inspection: normal respiratory effort and able to speak in complete sentences Auscultation: clear to auscultation bilaterally Cardio Jugular venous distension: no JVD Heart sounds: S1 normal heart sound present and S2 normal heart sound present GI Inspection: Yes normal to inspection and No abdominal wall ecchymosis Palpation (GI): Soft to palpation, not firm, nontender, no guarding and not rigid General: No CVA tenderness and Yes no CVA tenderness Back/Spine/Pelvis Back: no CVA tenderness, No CVA tenderness and No back tenderness Skin General skin exam: no rashes or lesions noted and elasticity normal Neuro General: oriented to person, oriented to place, oriented to time, patient oriented x3, gait normal, tone normal, moves all extremities, Normal light touch and pain sensation, no meningeal signs, no focal motor deficits, CN's II-XI intact bilaterally and normal sensation to monofilament Extrem Other: Bilateral lower extremity negative for swelling, pitting edema, redness, or calf tenderness. General: Yes normal to inspection and Yes full ROM Psych Appearance: grossly normal, well kempt and not disheveled Course Course Course Narrative: Vital signs are stable. Most likely viral syndrome. Negative for any abdominal tenderness. Repeat SARs ordered. Will order labs to make sure there is no dehydration. Imodium and Zofran ordered. Patient states left-sided burning pain sensation since he was seen here last week also still has cough so will do repeat chest x-ray to see the pneumonia and also will do troponin and EKG. Reevaluation(s) Reevaluation #1: After receiving meds patient slept comfortably in the ER. Patient did not have any episode of vomiting. Patient had no episode of diarrhea after receiving loperamide. Patient did not have any abdominal tenderness on palpation or guarding so no CT scan was done. Viral syndromes. EKG troponin were negative. Repeat x-ray negative for pneumonia. Patient is safe for discharge. Patient passed p.o. challenge in the ER. Patient drank multiple cups of water. Not suspecting colitis, diverticulitis, cholecystitis, appendicitis, pancreatitis, or any other abdominal etiology. Time: 12:42 Medications Administered Discontinued Medications Generic Name Dose Route Start Last Admin Trade Name Freq PRN Reason Stop Dose Admin Al Hydroxide/Mg Hydroxide 30 ml 09/13/22 10:10 09/13/22 10:31 Magnesium Hydrox/Alum Hydrox 30 Ml Oral.Susp PO 09/13/22 10:11 30 ml ONCE ONE Administration Belladonna Alkaloids/Phenobarbital 10 ml 09/13/22 10:10 09/13/22 10:31 Phenobarb/Hyoscy/Atropine/Scop 10 Ml Elixir PO 09/13/22 10:11 10 ml ONCE ONE Administration Famotidine 20 mg 09/13/22 10:10 09/13/22 10:30 Famotidine 20 Mg Tablet PO 09/13/22 10:11 20 mg ONCE ONE Administration Lidocaine HCl 15 ml 09/13/22 10:10 09/13/22 10:31 Lidocaine Hcl Viscous 2 % 15 Ml Solution MUCOUS MEM 09/13/22 10:11 15 ml ONCE ONE Administration Loperamide HCl 4 mg 09/13/22 09:27 09/13/22 09:50 Loperamide Hcl 2 Mg Capsule PO 09/13/22 09:28 4 mg ONCE STA Administration Ondansetron HCl 4 mg 09/13/22 09:27 09/13/22 09:50 Ondansetron Odt 4 Mg Tab.Rapdis TRANSLINGU 09/13/22 09:28 4 mg ONCE ONE Administration Medical Decision Making Medical Decision Making MDM Narrative: 32-year-old male with viral-like syndrome with diarrhea, abdominal pain, vomiting, coughing, and chest pain. Not suspecting any diverticulitis, appendicitis, cholecystitis, Differential Diagnosis Differential Diagnoses: The differential diagnosis associated with the presentation includes (Pneumonia, gastroenteritis, viral syndrome,) Lab Data MDM Lab Attestation statement: I reviewed the patient's lab results. 09/13/22 09:38 09/13/22 09:38 Labs: Lab Results 09/13/22 09/13/22 09/13/22 Range/Units 09:38 09:38 09:38 WBC 11.5 H (4.8-10.8) X10*3/uL RBC 5.44 (4.60-5.80) X10*6/uL Hgb 17.6 (14.0-18.0) g/dl Hct 47.5 (42.0-52.0) % MCV 87.3 (80.0-98.0) fL MCH 32.4 (27.0-33.0) pg MCHC 37.1 H (31.0-36.0) g/dl RDW 11.5 (11.0-16.0) % Plt Count 175 (160-400) X10*3/uL MPV 11.2 (9.4-12.4) fL Immature Gran % (Auto) 0.3 (0.0-0.4) % Neut % (Auto) 86.0 H (45-73) % Lymph % (Auto) 6.3 L (20-40) % [place] % (Auto) 6.6 (2-11) % Eos % (Auto) 0.5 (0-4) % Baso % (Auto) 0.3 (0-2) % Lymph # (Auto) 0.7 L (1.2-4.9) X10*3/uL [place] # (Auto) 0.8 (0.1-1.2) X10*3/uL Eos # (Auto) 0.1 (0.0-0.4) X10*3/uL Baso # (Auto) 0.0 (0.0-0.2) X10*3/uL Abs Immat Gran (auto) 0.03 (0.00-0.03) X10*3/uL Absolute Neuts (auto) 9.9 H (2.0-8.3) x10*3/uL Absolute Nucleated RBC 0.000 (0.0-0.012) X10*3/uL Nucleated RBC % (auto) 0.0 (0.0-0.2) /100WBC PT (10.0-13.1) SEC INR (0.9-1.1) APTT (26.0-36.4) SEC Sodium 143 (135-145) mmol/L Potassium 3.8 (3.3-5.1) mmol/L Chloride 104 (96-108) mmol/L Carbon Dioxide 29 (22-29) mmol/L Anion Gap 14 (12-20) BUN 17 H (9-16) mg/dL Creatinine 0.96 (0.5-1.4) mg/dL Estim Creat Clear Calc 121.2 Estimated GFR > 60 Random Glucose 116 H (60-115) mg/dL Calcium 10.1 (8.4-10.2) mg/dL Total Bilirubin 1.9 H (0.0-1.0) mg/dL AST 15 (5-37) U/L ALT 24 (0-40) U/L Alkaline Phosphatase 67 (39-117) U/L Troponin I High Sens (<3.5-35.0) ng/L Total Protein 7.4 (6.5-8.0) g/dL Albumin 5.1 H (3.5-5.0) g/dL Lipase 20 (8-78) U/L Influenza Type A (PCR) NEGATIVE (Negative) Influenza Type B (PCR) NEGATIVE (Negative) RSV RNA Qual (PCR) NEGATIVE (Negative) SARS-CoV-2 RNA (RT-PCR) NEGATIVE (Negative) 09/13/22 09/13/22 Range/Units 09:38 11:37 WBC (4.8-10.8) X10*3/uL RBC (4.60-5.80) X10*6/uL Hgb (14.0-18.0) g/dl Hct (42.0-52.0) % MCV (80.0-98.0) fL MCH (27.0-33.0) pg MCHC (31.0-36.0) g/dl RDW (11.0-16.0) % Plt Count (160-400) X10*3/uL MPV (9.4-12.4) fL Immature Gran % (Auto) (0.0-0.4) % Neut % (Auto) (45-73) % Lymph % (Auto) (20-40) % [place] % (Auto) (2-11) % Eos % (Auto) (0-4) % Baso % (Auto) (0-2) % Lymph # (Auto) (1.2-4.9) X10*3/uL [place] # (Auto) (0.1-1.2) X10*3/uL Eos # (Auto) (0.0-0.4) X10*3/uL Baso # (Auto) (0.0-0.2) X10*3/uL Abs Immat Gran (auto) (0.00-0.03) X10*3/uL Absolute Neuts (auto) (2.0-8.3) x10*3/uL Absolute Nucleated RBC (0.0-0.012) X10*3/uL Nucleated RBC % (auto) (0.0-0.2) /100WBC PT 11.6 (10.0-13.1) SEC INR 1.0 (0.9-1.1) APTT 21.8 L (26.0-36.4) SEC Sodium (135-145) mmol/L Potassium (3.3-5.1) mmol/L Chloride (96-108) mmol/L Carbon Dioxide (22-29) mmol/L Anion Gap (12-20) BUN (9-16) mg/dL Creatinine (0.5-1.4) mg/dL Estim Creat Clear Calc Estimated GFR Random Glucose (60-115) mg/dL Calcium (8.4-10.2) mg/dL Total Bilirubin (0.0-1.0) mg/dL AST (5-37) U/L ALT (0-40) U/L Alkaline Phosphatase (39-117) U/L Troponin I High Sens < 3.5 (<3.5-35.0) ng/L Total Protein (6.5-8.0) g/dL Albumin (3.5-5.0) g/dL Lipase (8-78) U/L Influenza Type A (PCR) (Negative) Influenza Type B (PCR) (Negative) RSV RNA Qual (PCR) (Negative) SARS-CoV-2 RNA (RT-PCR) (Negative) Independent Interpretation I performed an independent interpretation of an: EKG Interpretation: Normal sinus rhythm. Ventricular rate 88. Pr interval 164. QRS 80. QTC 413. Negative STEMI Radiology Impression Discussion of test interpretation with radiology: I have reviewed the radiologis t's reading. Prescription Management Zofran and loperamide Discharge Plan Discharge Clinical Impression: Acute viral syndrome, Gastroenteritis Patient Disposition: Home, Self-Care Instructions: Gastroenteritis (ED), Viral Syndrome (ED) Additional Instructions: Your blood work came back fine. Repeat x-ray negative for pneumonia. EKG and blood work came back negative for heart attack. You are safe for discharge. Return to the ED immediately for worsening vomiting, diarrhea, blood in stool, any abdominal pain, worsening chest pain, shortness of breath, dizziness, weakness, or any other concerning symptoms. Please follow up with PCP Prescriptions: New ondansetron 4 mg tablet,disintegrating 4 mg PO Q8H PRN (Reason: nausea and vomiting) 3 Days Qty: 9 0RF loperamide 2 mg capsule 2 mg PO QID PRN (Reason: loose stool) 2 Days Qty: 8 0RF No Action amoxicillin 500 mg capsule 500 mg PO BID Qty: 20 0RF tramadol 50 mg tablet 50 mg PO BID PRN (Reason: pain) Qty: 14 0RF Afrin (oxymetazoline) 0.05 % mist 2 spray intranasal Q12H PRN (Reason: nasal congestion) 3 Days Qty: 15 0RF amoxicillin-pot clavulanate [Augmentin] 875-125 mg tablet 1 tab PO Q12H 10 Days Qty: 20 0RF naproxen 500 mg tablet 500 mg PO BID PRN (Reason: pain) Qty: 20 0RF oxycodone-acetaminophen [Percocet] 5-325 mg tablet 1 tab PO TID PRN (Reason: pain (scale score 7-10)) Qty: 9 0RF oxycodone-acetaminophen [Percocet] 5-325 mg tablet 1 tab PO Q4-6H PRN (Reason: pain) Qty: 14 0RF albuterol sulfate 90 mcg/actuation HFA aerosol inhaler 1 inh inhalation QID PRN (Reason: shortness of breath or wheezing) Qty: 8.5 0RF azithromycin 250 mg tablet See Rx Instructions .ROUTE .COMPLEX Qty: 6 0RF Rx Instructions: take 500 mg today (day 1), then 250 mg for 4 days (days 2-5) codeine-guaifenesin [Guaifenesin AC] 10-100 mg/5 mL liquid 5 ml PO Q6H PRN (Reason: cold symptoms) Qty: 120 0RF ketorolac 10 mg tablet 10 mg PO Q6H PRN (Reason: pain) 5 Days Qty: 20 0RF Rx Instructions: 1. Patient received Toradol here in the emergency room. 2. Please instruct patient to stop all other anti-inflammatories. cyclobenzaprine 5 mg tablet 5 mg PO TID PRN (Reason: muscle spasm) Qty: 6 0RF ondansetron 4 mg tablet,disintegrating 4 mg PO Q8H PRN (Reason: nausea and vomiting) Qty: 20 0RF azithromycin 250 mg tablet See Rx Instructions .ROUTE .COMPLEX Qty: 6 0RF Rx Instructions: For 250 mg dose pack: take 500 mg today (day 1), then 250 mg for 4 days (days 2-5) cyclobenzaprine 10 mg tablet 10 mg PO BEDTIME PRN (Reason: muscle spasm) Qty: 4 0RF prednisone 20 mg tablet 40 mg PO DAILY 5 Days Qty: 10 0RF albuterol sulfate [Ventolin HFA] 90 mcg/actuation HFA aerosol inhaler 2 puff inhalation Q4-6H PRN (Reason: wheezing) Qty: 8.5 0RF benzonatate 100 mg capsule 100 mg PO TID PRN (Reason: cough) Qty: 20 0RF Stand Alone Forms: Work/School Release Interventions: ED Discharge Assessment Last Done: 09/13/22 12:54 Discharge Date/Time: 09/13/22 12:54 Print Language: Wolof
[2022-09-13 09:45] LABS: MANUAL DIFF FLAG NO
[2022-09-13 09:50] LABS: Basophils Percent Auto 0.3 % (0-2); Eosinophils Absolute Auto 0.1 X10*3/uL (0.0-0.4); Eosinophils Percent Auto 0.5 % (0-4); Hematocrit 47.5 % (42.0-52.0); Hemoglobin 17.6 g/dl (14.0-18.0); Imm Gran Abs Auto 0.03 X10*3/uL (0.00-0.03); Imm Gran Pct Auto 0.3 % (0.0-0.4); Lymphocytes Absolute Auto 0.7 X10*3/uL (1.2-4.9); Lymphocytes Percent Auto 6.3 % (20-40); Mean Corpuscular HGB Conc 37.1 g/dl (31.0-36.0); Mean Corpuscular Hemoglobin 32.4 pg (27.0-33.0); Mean Corpuscular Volume 87.3 fL (80.0-98.0); Mean Platelet Volume 11.2 fL (9.4-12.4); Monocytes Absolute Auto 0.8 X10*3/uL (0.1-1.2); Monocytes Percent Auto 6.6 % (2-11); Neutrophils Absolute Auto 9.9 x10*3/uL (2.0-8.3); Platelet Count 175 X10*3/uL (160-400); Red Blood Count 5.44 X10*6/uL (4.60-5.80); Red Cell Distribution Width 11.5 % (11.0-16.0); White Blood Count 11.5 X10*3/uL (4.8-10.8)
[2022-09-13] MEDS: Ondansetron ODT 4 MG TAB.RAPDIS TRANSLINGU (09:50)
[2022-09-13] MEDS: Loperamide HCl 2 MG CAPSULE 4 MG PO (09:50)
[2022-09-13 10:06] LABS: Alanine Aminotransferase 24 U/L (0-40); Albumin Level 5.1 g/dL (3.5-5.0); Alkaline Phosphatase 67 U/L (39-117); Anion Gap 14 (12-20); Aspartate Amino Transferase 15 U/L (5-37); Bilirubin Total 1.9 mg/dL (0.0-1.0); Blood Urea Nitrogen 17 mg/dL (9-16); Calcium 10.1 mg/dL (8.4-10.2); Carbon Dioxide 29 mmol/L (22-29); Chloride 104 mmol/L (96-108); Creatinine Clr Calc Pharmacy 121.2; Estimated Glomerular Filt Rate > 60; Glucose Random 116 mg/dL (60-115); Lipase 20 U/L (8-78); Potassium 3.8 mmol/L (3.3-5.1); Sodium 143 mmol/L (135-145); Total Protein 7.4 g/dL (6.5-8.0)
[2022-09-13 10:10] LABS: Prothrombin Time 11.6 SEC (10.0-13.1)
--- NOTE | 2022-09-13 10:12 | ECG_ITS ---
Test Reason : cp Blood Pressure : / mmHG Vent. Rate : 088 BPM Atrial Rate : 088 BPM P-R Int : 164 ms QRS Dur : 080 ms QT Int : 342 ms P-R-T Axes : 070 073 059 degrees QTc Int : 413 ms Normal sinus rhythm Normal ECG When compared with ECG of 23-AUG-2021 11:52, Vent. rate has increased BY 44 BPM Questionable change in QRS axis T wave inversion no longer evident in Inferior leads T wave amplitude has decreased in Lateral leads QT has lengthened Referred By: Jalen Velasquez Electronically Signed By:Braden Bryant
[2022-09-13 10:15] LABS: Partial Thromboplastin Time 21.8 SEC (26.0-36.4)
[2022-09-13 10:27] LABS: Influenza A PCR NEGATIVE (Negative); Influenza B PCR NEGATIVE (Negative); Resp Syncy Virus RNA Qual PCR NEGATIVE (Negative); SARS COV2 PCR INHOUSE NEGATIVE (Negative)
[2022-09-13] MEDS: Famotidine 20 MG TABLET PO (10:30)
[2022-09-13] MEDS: Lidocaine HCl Viscous 2 % 15 ML SOLUTION MUCOUS MEM (10:31)
[2022-09-13] MEDS: Magnesium Hydrox/Alum Hydrox 30 ML ORAL.SUSP PO (10:31)
[2022-09-13] MEDS: PHENobarb/Hyoscy/Atropine/Scop 10 ML ELIXIR PO (10:31)
[2022-09-13 11:49] VITALS: BP 127/68; PULSE 99; RESP 15; TEMP 37.3; O2SAT 99
[2022-09-13 12:21] LABS: Troponin-I High Sensitivity < 3.5 ng/L (<3.5-35.0)
== END 2022-09-13 12:54 | disposition home or self-care (01) ==
PROVIDERS: Physician Assistant; Emergency Provider Student in an Organized Health Care Education/Training Program
DX: K52.9 Noninfective gastroenteritis and colitis, unspecified (principal); B34.9 Viral infection, unspecified; R07.89 Other chest pain; R11.2 Nausea with vomiting, unspecified; M79.10 Myalgia, unspecified site; Z20.822 Contact with and (suspected) exposure to COVID-19; Z20.828 Contact with and (suspected) exposure to other viral communicable diseases; Z79.899 Other long term (current) drug therapy
CPT/HCPCS: 0241U; 36415; 71046; 80053; 83690; 84484; 85025; 85610; 85730; 93005; 99283; 99284

== ENCOUNTER 2022-10-01 10:56 | Emergency (ER) | payer OTHER, SELFPAY ==
--- NOTE | ~2022-10-01 | CT_ITS ---
EXAMINATION: CT ABDOMEN AND PELVIS WITHOUT CONTRAST CLINICAL INFORMATION: Right abdominal and flank pain. COMPARISON: None TECHNIQUE: Multidetector volumetric imaging was performed from the superior aspect of the liver through the pubic symphysis. Sagittal and coronal reformatted images were obtained on the technologist's workstation. Lack of intravenous and oral contrast limits visceral evaluation. This CT examination was performed using dose optimization techniques as appropriate, variously including the following: *Automated exposure control *Adjustment of mA and/or kV according to patient size (this includes techniques or standardized protocols for targeted exams where dose is matched to indication/reason for exam; i.e. extremities or head) *Use of iterative reconstruction technique DLP: 455 mGy-cm FINDINGS: LUNG BASES: The visualized lung bases are unremarkable. LIVER, GALLBLADDER, AND BILIARY TREE: Unremarkable. PANCREAS: Unremarkable. SPLEEN: Unremarkable. ADRENAL GLANDS: Unremarkable. KIDNEYS AND URETERS: The kidneys are normal in size, shape, and attenuation. No hydronephrosis, hydroureter, or calculi seen. No perinephric stranding. BLADDER: Unremarkable. GASTROINTESTINAL TRACT: The stomach, small bowel and appendix are unremarkable. The colon and rectum are unremarkable. ABDOMINAL WALL: No significant hernia is appreciated. LYMPH NODES: Normal. VASCULAR: Unremarkable. PELVIC VISCERA: Unremarkable. OSSEOUS STRUCTURES: L5-S1 mild disc space narrowing without other significant abnormality. CT/CT abdomen pelvis wo IV con IMPRESSION: 1. No acute intra-abdominal/pelvic abnormality to explain the patient's pain. No nephrolithiasis or hydroureteronephrosis. 2. L5-S1 mild disc space narrowing could be normal for the patient or degenerative in nature.
[2022-10-01 11:07] VITALS: BP 128/75; PULSE 73; RESP 20; TEMP 36.7; O2SAT 98; BMI 24.4
--- NOTE | 2022-10-01 11:12 | ED.ABDPAIN ---
HPI - Abdominal Pain General Chief Complaint: Abdominal Pain Stated Complaint: Lower abd pain Time Seen by Provider: 10/01/22 13:37 Related Data Previous Rx's Medication Instructions Recorded oxymetazoline 0.05 % nasal mist 2 spray intranasal Q12H PRN nasal 07/05/20 (Afrin (oxymetazoline)) congestion 3 days #15 mL amoxicillin 500 mg capsule 500 mg PO BID #20 caps 07/09/20 tramadol 50 mg tablet 50 mg PO BID PRN pain #14 tabs 07/09/20 amoxicillin 875 mg-potassium 1 tab PO Q12H 10 days #20 tabs 09/24/20 clavulanate 125 mg tablet (Augmentin) naproxen 500 mg tablet 500 mg PO BID PRN pain #20 tabs 09/24/20 oxycodone-acetaminophen 5 mg-325 1 tab PO TID PRN pain (scale score 09/24/20 mg tablet (Percocet) 7-10) #9 tabs oxycodone-acetaminophen 5 mg-325 1 tab PO Q4-6H PRN pain #14 tabs 11/09/20 mg tablet (Percocet) albuterol sulfate 90 mcg/actuation 1 inh inhalation QID PRN shortness 08/23/21 aerosol inhaler of breath or wheezing #8.5 grams azithromycin 250 mg tablet See Rx Instructions PO .COMPLEX #6 08/23/21 tabs codeine 10 mg-guaifenesin 100 mg/5 5 ml PO Q6H PRN cold symptoms #120 08/23/21 mL oral liquid (Guaifenesin AC) mL ondansetron 4 mg disintegrating 4 mg PO Q8H PRN nausea and 10/30/21 tablet vomiting #20 tabs azithromycin 250 mg tablet See Rx Instructions PO .COMPLEX #6 01/18/22 tabs cyclobenzaprine 5 mg tablet 5 mg PO TID PRN muscle spasm #6 03/09/22 tabs ketorolac 10 mg tablet 10 mg PO Q6H PRN pain 5 days #20 03/09/22 tabs cyclobenzaprine 10 mg tablet 10 mg PO BEDTIME PRN muscle spasm 03/11/22 #4 tabs albuterol sulfate 90 mcg/actuation 2 puff inhalation Q4-6H PRN 09/09/22 aerosol inhaler (Ventolin HFA) wheezing #8.5 grams benzonatate 100 mg capsule 100 mg PO TID PRN cough #20 caps 09/09/22 prednisone 20 mg tablet 40 mg PO DAILY 5 days #10 tabs 09/09/22 loperamide 2 mg capsule 2 mg PO QID PRN loose stool 2 days 09/13/22 #8 caps ondansetron 4 mg disintegrating 4 mg PO Q8H PRN nausea and 09/13/22 tablet vomiting 3 days #9 tabs omeprazole 20 mg capsule,delayed 20 mg PO DAILY #30 caps 10/01/22 release Allergies Allergy/AdvReac Type Severity Reaction Status Date / Time No Known Allergies Allergy Verified 03/09/22 04:25 [facility] Past Medical History Medical History Patient denies medical problems Family History Family History Other Family history non-contributory Social History Social History Household Members: Family Alcohol intake: never Patient Tobacco Use Status: Never used Tobacco Substance Use Type: Marijuana Advance Directives: No Advance Directives Information Provided: Yes Physical Exam ED Vital Signs: Vital Signs - 24 hr 10/01/22 11:07 Temperature 98.1 F Pulse Rate 73 Respiratory Rate 20 Blood Pressure 128/75 Pulse Oximetry 98 Oxygen Delivery Method Room Air BMI result Body Mass Index 24.4 Course Course Course Narrative: FABIANO-11:15AM 32yoM with a PMHx of asthma who is presenting to the ED with complaints of nausea, right sided flank abd pain x 3-4 days worse today. Reports darker colored urine. Reports he has never had this in the past. Denies any fevers, vomiting, dysuria or any other symptoms complaints or concerns at this time. Plan: Labs, CT abd/pelvis, UA. Pt sent back to to be seen in ED Medical Decision Making Lab Data 10/01/22 11:34 10/01/22 11:34 Labs: Lab Results 10/01/22 10/01/22 10/01/22 Range/Units 11:34 11:34 11:34 WBC 5.3 (4.8-10.8) X10*3/uL RBC 4.60 (4.60-5.80) X10*6/uL Hgb 14.9 (14.0-18.0) g/dl Hct 42.2 (42.0-52.0) % MCV 91.7 (80.0-98.0) fL MCH 32.4 (27.0-33.0) pg MCHC 35.3 (31.0-36.0) g/dl RDW 11.7 (11.0-16.0) % Plt Count 194 (160-400) X10*3/uL MPV 10.6 (9.4-12.4) fL Immature Gran % (Auto) 0.2 (0.0-0.4) % Neut % (Auto) 52.6 (45-73) % Lymph % (Auto) 38.0 (20-40) % [place] % (Auto) 6.1 (2-11) % Eos % (Auto) 2.5 (0-4) % Baso % (Auto) 0.6 (0-2) % Lymph # (Auto) 2.0 (1.2-4.9) X10*3/uL [place] # (Auto) 0.3 (0.1-1.2) X10*3/uL Eos # (Auto) 0.1 (0.0-0.4) X10*3/uL Baso # (Auto) 0.0 (0.0-0.2) X10*3/uL Abs Immat Gran (auto) 0.01 (0.00-0.03) X10*3/uL Absolute Neuts (auto) 2.8 (2.0-8.3) x10*3/uL Absolute Nucleated RBC 0.000 (0.0-0.012) X10*3/uL Nucleated RBC % (auto) 0.0 (0.0-0.2) /100WBC PT 11.3 (10.0-13.1) SEC INR 1.0 (0.9-1.1) Sodium 143 (135-145) mmol/L Potassium 4.2 (3.3-5.1) mmol/L Chloride 106 (96-108) mmol/L Carbon Dioxide 25 (22-29) mmol/L Anion Gap 16 (12-20) BUN 13 (9-16) mg/dL Creatinine 0.95 (0.5-1.4) mg/dL Estim Creat Clear Calc 122.5 Estimated GFR > 60 Random Glucose 115 (60-115) mg/dL Calcium 9.6 (8.4-10.2) mg/dL Magnesium 1.9 (1.6-2.6) mg/dL Total Bilirubin 2.2 H (0.0-1.0) mg/dL AST 17 (5-37) U/L ALT 19 (0-40) U/L Alkaline Phosphatase 58 (39-117) U/L Total Creatine Kinase 64 (38-174) U/L Total Protein 6.8 (6.5-8.0) g/dL Albumin 4.8 (3.5-5.0) g/dL Lipase 20 (8-78) U/L Urine Color Urine Appearance Urine pH (5.0-9.0) Ur Specific [place] (1.005-1.025) Urine Protein (Neg-Trace) mg/dL Urine Glucose (UA) (Negative) mg/dL Urine Ketones (Negative) mg/dL Urine Blood (Negative) Urine Nitrite (Negative) Ur Leukocyte Esterase (Negative) 10/01/22 Range/Units 12:54 WBC (4.8-10.8) X10*3/uL RBC (4.60-5.80) X10*6/uL Hgb (14.0-18.0) g/dl Hct (42.0-52.0) % MCV (80.0-98.0) fL MCH (27.0-33.0) pg MCHC (31.0-36.0) g/dl RDW (11.0-16.0) % Plt Count (160-400) X10*3/uL MPV (9.4-12.4) fL Immature Gran % (Auto) (0.0-0.4) % Neut % (Auto) (45-73) % Lymph % (Auto) (20-40) % [place] % (Auto) (2-11) % Eos % (Auto) (0-4) % Baso % (Auto) (0-2) % Lymph # (Auto) (1.2-4.9) X10*3/uL [place] # (Auto) (0.1-1.2) X10*3/uL Eos # (Auto) (0.0-0.4) X10*3/uL Baso # (Auto) (0.0-0.2) X10*3/uL Abs Immat Gran (auto) (0.00-0.03) X10*3/uL Absolute Neuts (auto) (2.0-8.3) x10*3/uL Absolute Nucleated RBC (0.0-0.012) X10*3/uL Nucleated RBC % (auto) (0.0-0.2) /100WBC PT (10.0-13.1) SEC INR (0.9-1.1) Sodium (135-145) mmol/L Potassium (3.3-5.1) mmol/L Chloride (96-108) mmol/L Carbon Dioxide (22-29) mmol/L Anion Gap (12-20) BUN (9-16) mg/dL Creatinine (0.5-1.4) mg/dL Estim Creat Clear Calc Estimated GFR Random Glucose (60-115) mg/dL Calcium (8.4-10.2) mg/dL Magnesium (1.6-2.6) mg/dL Total Bilirubin (0.0-1.0) mg/dL AST (5-37) U/L ALT (0-40) U/L Alkaline Phosphatase (39-117) U/L Total Creatine Kinase (38-174) U/L Total Protein (6.5-8.0) g/dL Albumin (3.5-5.0) g/dL Lipase (8-78) U/L Urine Color Dark Yellow Urine Appearance Clear Urine pH 6.0 (5.0-9.0) Ur Specific [place] >= 1.030 H (1.005-1.025) Urine Protein Negative (Neg-Trace) mg/dL Urine Glucose (UA) Negative (Negative) mg/dL Urine Ketones Trace (Negative) mg/dL Urine Blood Negative (Negative) Urine Nitrite Negative (Negative) Ur Leukocyte Esterase Negative (Negative) Discharge Plan Discharge Clinical Impression: Abdominal pain Patient Disposition: Home, Self-Care Instructions: Abdominal Pain (ED) Additional Instructions: Follow-up with your primary care physician if you now 1 you could call [facility] for primary care [phone] Drink lots of fluids, stay on liquid diet for 24 hours, take the Prilosec as directed Prescriptions: New omeprazole 20 mg capsule,delayed release(DR/EC) 20 mg PO DAILY Qty: 30 0RF No Action amoxicillin 500 mg capsule 500 mg PO BID Qty: 20 0RF tramadol 50 mg tablet 50 mg PO BID PRN (Reason: pain) Qty: 14 0RF Afrin (oxymetazoline) 0.05 % mist 2 spray intranasal Q12H PRN (Reason: nasal congestion) 3 Days Qty: 15 0RF amoxicillin-pot clavulanate [Augmentin] 875-125 mg tablet 1 tab PO Q12H 10 Days Qty: 20 0RF naproxen 500 mg tablet 500 mg PO BID PRN (Reason: pain) Qty: 20 0RF oxycodone-acetaminophen [Percocet] 5-325 mg tablet 1 tab PO TID PRN (Reason: pain (scale score 7-10)) Qty: 9 0RF oxycodone-acetaminophen [Percocet] 5-325 mg tablet 1 tab PO Q4-6H PRN (Reason: pain) Qty: 14 0RF albuterol sulfate 90 mcg/actuation HFA aerosol inhaler 1 inh inhalation QID PRN (Reason: shortness of breath or wheezing) Qty: 8.5 0RF azithromycin 250 mg tablet See Rx Instructions .ROUTE .COMPLEX Qty: 6 0RF Rx Instructions: take 500 mg today (day 1), then 250 mg for 4 days (days 2-5) codeine-guaifenesin [Guaifenesin AC] 10-100 mg/5 mL liquid 5 ml PO Q6H PRN (Reason: cold symptoms) Qty: 120 0RF ketorolac 10 mg tablet 10 mg PO Q6H PRN (Reason: pain) 5 Days Qty: 20 0RF Rx Instructions: 1. Patient received Toradol here in the emergency room. 2. Please instruct patient to stop all other anti-inflammatories. cyclobenzaprine 5 mg tablet 5 mg PO TID PRN (Reason: muscle spasm) Qty: 6 0RF ondansetron 4 mg tablet,disintegrating 4 mg PO Q8H PRN (Reason: nausea and vomiting) Qty: 20 0RF azithromycin 250 mg tablet See Rx Instructions .ROUTE .COMPLEX Qty: 6 0RF Rx Instructions: For 250 mg dose pack: take 500 mg today (day 1), then 250 mg for 4 days (days 2-5) cyclobenzaprine 10 mg tablet 10 mg PO BEDTIME PRN (Reason: muscle spasm) Qty: 4 0RF prednisone 20 mg tablet 40 mg PO DAILY 5 Days Qty: 10 0RF albuterol sulfate [Ventolin HFA] 90 mcg/actuation HFA aerosol inhaler 2 puff inhalation Q4-6H PRN (Reason: wheezing) Qty: 8.5 0RF benzonatate 100 mg capsule 100 mg PO TID PRN (Reason: cough) Qty: 20 0RF ondansetron 4 mg tablet,disintegrating 4 mg PO Q8H PRN (Reason: nausea and vomiting) 3 Days Qty: 9 0RF loperamide 2 mg capsule 2 mg PO QID PRN (Reason: loose stool) 2 Days Qty: 8 0RF Interventions: ED Discharge Assessment Last Done: 10/01/22 14:14 Discharge Date/Time: 10/01/22 14:14
[2022-10-01 11:38] LABS: MANUAL DIFF FLAG NO
[2022-10-01 11:39] LABS: Basophils Percent Auto 0.6 % (0-2); Eosinophils Absolute Auto 0.1 X10*3/uL (0.0-0.4); Eosinophils Percent Auto 2.5 % (0-4); Hematocrit 42.2 % (42.0-52.0); Hemoglobin 14.9 g/dl (14.0-18.0); Imm Gran Abs Auto 0.01 X10*3/uL (0.00-0.03); Imm Gran Pct Auto 0.2 % (0.0-0.4); Mean Corpuscular HGB Conc 35.3 g/dl (31.0-36.0); Mean Corpuscular Hemoglobin 32.4 pg (27.0-33.0); Mean Corpuscular Volume 91.7 fL (80.0-98.0); Mean Platelet Volume 10.6 fL (9.4-12.4); Monocytes Absolute Auto 0.3 X10*3/uL (0.1-1.2); Monocytes Percent Auto 6.1 % (2-11); Neutrophils Absolute Auto 2.8 x10*3/uL (2.0-8.3); Neutrophils Percent Auto 52.6 % (45-73); Platelet Count 194 X10*3/uL (160-400); Red Cell Distribution Width 11.7 % (11.0-16.0); White Blood Count 5.3 X10*3/uL (4.8-10.8)
[2022-10-01 11:50] LABS: Prothrombin Time 11.3 SEC (10.0-13.1)
[2022-10-01 11:56] LABS: Alanine Aminotransferase 19 U/L (0-40); Albumin Level 4.8 g/dL (3.5-5.0); Alkaline Phosphatase 58 U/L (39-117); Anion Gap 16 (12-20); Aspartate Amino Transferase 17 U/L (5-37); Bilirubin Total 2.2 mg/dL (0.0-1.0); Blood Urea Nitrogen 13 mg/dL (9-16); Calcium 9.6 mg/dL (8.4-10.2); Carbon Dioxide 25 mmol/L (22-29); Chloride 106 mmol/L (96-108); Creatinine Clr Calc Pharmacy 122.5; Estimated Glomerular Filt Rate > 60; Glucose Random 115 mg/dL (60-115); Lipase 20 U/L (8-78); Magnesium 1.9 mg/dL (1.6-2.6); Potassium 4.2 mmol/L (3.3-5.1); Sodium 143 mmol/L (135-145); Total Protein 6.8 g/dL (6.5-8.0)
[2022-10-01 13:04] LABS: Appearance Urine Clear; Color Urine Dark Yellow; Glucose Urine UA Negative (Negative); Leukocyte Esterase Urine Negative (Negative); Nitrite Urine Negative (Negative); Specific Gravity - Urine >= 1.030 (1.005-1.025); Urine Blood Negative (Negative); Urine Ketones Trace mg/dL (Negative); Urine Protein Negative (Neg-Trace)
--- NOTE | 2022-10-01 13:55 | ED_ITS ---
HPI - Abdominal Pain General Chief Complaint: Abdominal Pain Stated Complaint: Lower abd pain Time Seen by Provider: 10/01/22 13:37 Source: patient Mode of arrival: ambulatory Limitations: no limitations History of Present Illness HPI narrative: This is a 32 years old male presented to the emergency department complaining of lower abdominal pain ongoing for about 4 days pain is radiated to the back he denies any vomiting any diarrhea his urine a more darker than usual. MD elicited complaint: abdominal pain Pertinent past history: none Onset (ago): day(s) (4) Pain Consistency: constant Location: periumbilical Severity: mild Quality: cramping Radiation: none Exacerbating factors: nothing Relieving factors: nothing Related Data Previous Rx's Medication Instructions Recorded oxymetazoline 0.05 % nasal mist 2 spray intranasal Q12H PRN nasal 07/05/20 (Afrin (oxymetazoline)) congestion 3 days #15 mL amoxicillin 500 mg capsule 500 mg PO BID #20 caps 07/09/20 tramadol 50 mg tablet 50 mg PO BID PRN pain #14 tabs 07/09/20 amoxicillin 875 mg-potassium 1 tab PO Q12H 10 days #20 tabs 09/24/20 clavulanate 125 mg tablet (Augmentin) naproxen 500 mg tablet 500 mg PO BID PRN pain #20 tabs 09/24/20 oxycodone-acetaminophen 5 mg-325 1 tab PO TID PRN pain (scale score 09/24/20 mg tablet (Percocet) 7-10) #9 tabs oxycodone-acetaminophen 5 mg-325 1 tab PO Q4-6H PRN pain #14 tabs 11/09/20 mg tablet (Percocet) albuterol sulfate 90 mcg/actuation 1 inh inhalation QID PRN shortness 08/23/21 aerosol inhaler of breath or wheezing #8.5 grams azithromycin 250 mg tablet See Rx Instructions PO .COMPLEX #6 08/23/21 tabs codeine 10 mg-guaifenesin 100 mg/5 5 ml PO Q6H PRN cold symptoms #120 08/23/21 mL oral liquid (Guaifenesin AC) mL ondansetron 4 mg disintegrating 4 mg PO Q8H PRN nausea and 10/30/21 tablet vomiting #20 tabs azithromycin 250 mg tablet See Rx Instructions PO .COMPLEX #6 01/18/22 tabs cyclobenzaprine 5 mg tablet 5 mg PO TID PRN muscle spasm #6 03/09/22 tabs ketorolac 10 mg tablet 10 mg PO Q6H PRN pain 5 days #20 03/09/22 tabs cyclobenzaprine 10 mg tablet 10 mg PO BEDTIME PRN muscle spasm 03/11/22 #4 tabs albuterol sulfate 90 mcg/actuation 2 puff inhalation Q4-6H PRN 09/09/22 aerosol inhaler (Ventolin HFA) wheezing #8.5 grams benzonatate 100 mg capsule 100 mg PO TID PRN cough #20 caps 09/09/22 prednisone 20 mg tablet 40 mg PO DAILY 5 days #10 tabs 09/09/22 loperamide 2 mg capsule 2 mg PO QID PRN loose stool 2 days 09/13/22 #8 caps ondansetron 4 mg disintegrating 4 mg PO Q8H PRN nausea and 09/13/22 tablet vomiting 3 days #9 tabs omeprazole 20 mg capsule,delayed 20 mg PO DAILY #30 caps 10/01/22 release Allergies Allergy/AdvReac Type Severity Reaction Status Date / Time No Known Allergies Allergy Verified 03/09/22 04:25 Review of Systems Cardiovascular: Reports no additional cardiovascular complaints Respiratory: Reports no additional respiratory complaints Gastrointestinal: Reports abdominal pain, Denies fecal incontinence, Denies diarrhea, Denies loose stools, Denies vomiting and Denies hematemesis Reports system reviewed and no additional complaints, except as documented PMFSH Past Medical History Medical History Patient denies medical problems Family History Family History Other Family history non-contributory Social History Social History Household Members: Family Alcohol intake: never Patient Tobacco Use Status: Never used Tobacco Substance Use Type: Marijuana Advance Directives: No Advance Directives Information Provided: Yes Physical Exam ED Vital Signs: Vital Signs - 24 hr 10/01/22 11:07 Temperature 98.1 F Pulse Rate 73 Respiratory Rate 20 Blood Pressure 128/75 Pulse Oximetry 98 Oxygen Delivery Method Room Air BMI result Body Mass Index 24.4 Const Other: On examination looks well is not toxic-appearing General: cooperative, healthy appearing, comfortable, no acute distress, well developed, alert and awake Nutritional Appearance: well nourished Orientation/consciousness: patient oriented x3 Limitations: no limitations HENMT Head: Yes normal to inspection General nose exam: Normal external nose present Face and sinus: Yes normal facial exam Mouth: Normal oral and palatal mucosa present Throat: Yes posterior oropharynx normal Neck Neck: Yes normal visual inspection, Yes full ROM and Yes no lymphadenopathy Chest Chest palpation & inspection: normal inspection of the chest Resp Effort & Inspection: normal respiratory effort Auscultation: clear to auscultation bilaterally Cardio Jugular venous distension: no JVD Rate: regular rate Rhythm: regular rhythm GI Inspection: Yes normal to inspection Palpation (GI): Soft to palpation, not firm and nontender General: Yes no CVA tenderness Back/Spine/Pelvis Back: no CVA tenderness Neuro General: patient oriented x3 Course Course Course Narrative: Patient presented with lower abdominal pain for 4 days his workup is essentially negative CT scan is normal his appendix is normal his white count is normal Medical Decision Making Medical Decision Making [facility] Narrative: Presented with abdominal pain CT will discharge with him home on PPI empirically and follow up with PCP Differential Diagnosis Differential Diagnoses: The differential diagnosis associated with the presentation includes PUD/colitis/diverticulitis/appendicitis Admission/Observation Consideration of admission/observation: Escalation of care including admission/observation considered Lab Data MDM Lab Attestation statement: I reviewed the patient's lab results. 10/01/22 11:34 10/01/22 11:34 Labs: Lab Results 10/01/22 10/01/22 10/01/22 Range/Units 11:34 11:34 11:34 WBC 5.3 (4.8-10.8) X10*3/uL RBC 4.60 (4.60-5.80) X10*6/uL Hgb 14.9 (14.0-18.0) g/dl Hct 42.2 (42.0-52.0) % MCV 91.7 (80.0-98.0) fL MCH 32.4 (27.0-33.0) pg MCHC 35.3 (31.0-36.0) g/dl RDW 11.7 (11.0-16.0) % Plt Count 194 (160-400) X10*3/uL MPV 10.6 (9.4-12.4) fL Immature Gran % (Auto) 0.2 (0.0-0.4) % Neut % (Auto) 52.6 (45-73) % Lymph % (Auto) 38.0 (20-40) % [place] % (Auto) 6.1 (2-11) % Eos % (Auto) 2.5 (0-4) % Baso % (Auto) 0.6 (0-2) % Lymph # (Auto) 2.0 (1.2-4.9) X10*3/uL [place] # (Auto) 0.3 (0.1-1.2) X10*3/uL Eos # (Auto) 0.1 (0.0-0.4) X10*3/uL Baso # (Auto) 0.0 (0.0-0.2) X10*3/uL Abs Immat Gran (auto) 0.01 (0.00-0.03) X10*3/uL Absolute Neuts (auto) 2.8 (2.0-8.3) x10*3/uL Absolute Nucleated RBC 0.000 (0.0-0.012) X10*3/uL Nucleated RBC % (auto) 0.0 (0.0-0.2) /100WBC PT 11.3 (10.0-13.1) SEC INR 1.0 (0.9-1.1) Sodium 143 (135-145) mmol/L Potassium 4.2 (3.3-5.1) mmol/L Chloride 106 (96-108) mmol/L Carbon Dioxide 25 (22-29) mmol/L Anion Gap 16 (12-20) BUN 13 (9-16) mg/dL Creatinine 0.95 (0.5-1.4) mg/dL Estim Creat Clear Calc 122.5 Estimated GFR > 60 Random Glucose 115 (60-115) mg/dL Calcium 9.6 (8.4-10.2) mg/dL Magnesium 1.9 (1.6-2.6) mg/dL Total Bilirubin 2.2 H (0.0-1.0) mg/dL AST 17 (5-37) U/L ALT 19 (0-40) U/L Alkaline Phosphatase 58 (39-117) U/L Total Creatine Kinase 64 (38-174) U/L Total Protein 6.8 (6.5-8.0) g/dL Albumin 4.8 (3.5-5.0) g/dL Lipase 20 (8-78) U/L Urine Color Urine Appearance Urine pH (5.0-9.0) Ur Specific [place] (1.005-1.025) Urine Protein (Neg-Trace) mg/dL Urine Glucose (UA) (Negative) mg/dL Urine Ketones (Negative) mg/dL Urine Blood (Negative) Urine Nitrite (Negative) Ur Leukocyte Esterase (Negative) 10/01/22 Range/Units 12:54 WBC (4.8-10.8) X10*3/uL RBC (4.60-5.80) X10*6/uL Hgb (14.0-18.0) g/dl Hct (42.0-52.0) % MCV (80.0-98.0) fL MCH (27.0-33.0) pg MCHC (31.0-36.0) g/dl RDW (11.0-16.0) % Plt Count (160-400) X10*3/uL MPV (9.4-12.4) fL Immature Gran % (Auto) (0.0-0.4) % Neut % (Auto) (45-73) % Lymph % (Auto) (20-40) % [place] % (Auto) (2-11) % Eos % (Auto) (0-4) % Baso % (Auto) (0-2) % Lymph # (Auto) (1.2-4.9) X10*3/uL [place] # (Auto) (0.1-1.2) X10*3/uL Eos # (Auto) (0.0-0.4) X10*3/uL Baso # (Auto) (0.0-0.2) X10*3/uL Abs Immat Gran (auto) (0.00-0.03) X10*3/uL Absolute Neuts (auto) (2.0-8.3) x10*3/uL Absolute Nucleated RBC (0.0-0.012) X10*3/uL Nucleated RBC % (auto) (0.0-0.2) /100WBC PT (10.0-13.1) SEC INR (0.9-1.1) Sodium (135-145) mmol/L Potassium (3.3-5.1) mmol/L Chloride (96-108) mmol/L Carbon Dioxide (22-29) mmol/L Anion Gap (12-20) BUN (9-16) mg/dL Creatinine (0.5-1.4) mg/dL Estim Creat Clear Calc Estimated GFR Random Glucose (60-115) mg/dL Calcium (8.4-10.2) mg/dL Magnesium (1.6-2.6) mg/dL Total Bilirubin (0.0-1.0) mg/dL AST (5-37) U/L ALT (0-40) U/L Alkaline Phosphatase (39-117) U/L Total Creatine Kinase (38-174) U/L Total Protein (6.5-8.0) g/dL Albumin (3.5-5.0) g/dL Lipase (8-78) U/L Urine Color Dark Yellow Urine Appearance Clear Urine pH 6.0 (5.0-9.0) Ur Specific [place] >= 1.030 H (1.005-1.025) Urine Protein Negative (Neg-Trace) mg/dL Urine Glucose (UA) Negative (Negative) mg/dL Urine Ketones Trace (Negative) mg/dL Urine Blood Negative (Negative) Urine Nitrite Negative (Negative) Ur Leukocyte Esterase Negative (Negative) Radiology Impression Discussion of test interpretation with radiology: I have reviewed the radiologist's reading. Radiologist Impression: GASTROINTESTINAL TRACT: The stomach, small bowel and appendix are unremarkable. The colon and rectum are unremarkable. ABDOMINAL WALL: No significant hernia is appreciated.? LYMPH NODES: Normal. VASCULAR: Unremarkable. PELVIC VISCERA: Unremarkable.? OSSEOUS STRUCTURES: L5-S1 mild disc space narrowing without other significant abnormality.? CT/CT abdomen pelvis wo IV con IMPRESSION: 1.? No acute intra-abdominal/pelvic abnormality to explain the patient's pain. No nephrolithiasis or hydroureteronephrosis. 2.? L5-S1 mild disc space narrowing could be normal for the patient or degenerative in nature. ? Dictated By: Ángel Panchal MD Signed By: <Electronically signed by Ángel Panchal MD in [place]> 10/01/22 1322 Discharge Plan Discharge Clinical Impression: Abdominal pain Patient Disposition: Home, Self-Care Instructions: Abdominal Pain (ED) Additional Instructions: Follow-up with your primary care physician if you now 1 you could call [facility] for primary care [phone] Drink lots of fluids, stay on liquid diet for 24 hours, take the Prilosec as directed Prescriptions: New omeprazole 20 mg capsule,delayed release(DR/EC) 20 mg PO DAILY Qty: 30 0RF No Action amoxicillin 500 mg capsule 500 mg PO BID Qty: 20 0RF tramadol 50 mg tablet 50 mg PO BID PRN (Reason: pain) Qty: 14 0RF Afrin (oxymetazoline) 0.05 % mist 2 spray intranasal Q12H PRN (Reason: nasal congestion) 3 Days Qty: 15 0RF amoxicillin-pot clavulanate [Augmentin] 875-125 mg tablet 1 tab PO Q12H 10 Days Qty: 20 0RF naproxen 500 mg tablet 500 mg PO BID PRN (Reason: pain) Qty: 20 0RF oxycodone-acetaminophen [Percocet] 5-325 mg tablet 1 tab PO TID PRN (Reason: pain (scale score 7-10)) Qty: 9 0RF oxycodone-acetaminophen [Percocet] 5-325 mg tablet 1 tab PO Q4-6H PRN (Reason: pain) Qty: 14 0RF albuterol sulfate 90 mcg/actuation HFA aerosol inhaler 1 inh inhalation QID PRN (Reason: shortness of breath or wheezing) Qty: 8.5 0RF azithromycin 250 mg tablet See Rx Instructions .ROUTE .COMPLEX Qty: 6 0RF Rx Instructions: take 500 mg today (day 1), then 250 mg for 4 days (days 2-5) codeine-guaifenesin [Guaifenesin AC] 10-100 mg/5 mL liquid 5 ml PO Q6H PRN (Reason: cold symptoms) Qty: 120 0RF ketorolac 10 mg tablet 10 mg PO Q6H PRN (Reason: pain) 5 Days Qty: 20 0RF Rx Instructions: 1. Patient received Toradol here in the emergency room. 2. Please instruct patient to stop all other anti-inflammatories. cyclobenzaprine 5 mg tablet 5 mg PO TID PRN (Reason: muscle spasm) Qty: 6 0RF ondansetron 4 mg tablet,disintegrating 4 mg PO Q8H PRN (Reason: nausea and vomiting) Qty: 20 0RF azithromycin 250 mg tablet See Rx Instructions .ROUTE .COMPLEX Qty: 6 0RF Rx Instructions: For 250 mg dose pack: take 500 mg today (day 1), then 250 mg for 4 days (days 2-5) cyclobenzaprine 10 mg tablet 10 mg PO BEDTIME PRN (Reason: muscle spasm) Qty: 4 0RF prednisone 20 mg tablet 40 mg PO DAILY 5 Days Qty: 10 0RF albuterol sulfate [Ventolin HFA] 90 mcg/actuation HFA aerosol inhaler 2 puff inhalation Q4-6H PRN (Reason: wheezing) Qty: 8.5 0RF benzonatate 100 mg capsule 100 mg PO TID PRN (Reason: cough) Qty: 20 0RF ondansetron 4 mg tablet,disintegrating 4 mg PO Q8H PRN (Reason: nausea and vomiting) 3 Days Qty: 9 0RF loperamide 2 mg capsule 2 mg PO QID PRN (Reason: loose stool) 2 Days Qty: 8 0RF Interventions: ED Discharge Assessment Last Done: 10/01/22 14:14 Discharge Date/Time: 10/01/22 14:14
--- NOTE | 2022-10-01 14:00 | PC.NURSE ---
Patient presents to ED with report of ABD pain no tenderness or guarding noted ABD soft BS quad x 4. No recent sick contacts or travel has had recent GI issues with diarrhea and darker colored urine. AOx 4 neuros intact no distress noted will CTM
== END 2022-10-01 14:14 | disposition home or self-care (01) ==
PROVIDERS: Physician Assistant Medical; Emergency Provider Emergency Medicine
DX: R10.30 Lower abdominal pain, unspecified (principal)
CPT/HCPCS: 36415; 74176; 80053; 81003; 82550; 83690; 83735; 85025; 85610; 99282; 99284

== ENCOUNTER 2022-11-22 21:32 | Emergency (ER) | payer OTHER, SELFPAY ==
[2022-11-22 21:57] VITALS: BP 122/89; PULSE 79; RESP 18; TEMP 36.8; O2SAT 98; BMI 21.7
[2022-11-22 22:46] LABS: MANUAL DIFF FLAG NO
[2022-11-22 22:47] VITALS: BP 123/73; PULSE 67; RESP 18; O2SAT 99
[2022-11-22 22:48] LABS: Basophils Percent Auto 0.6 % (0-2); Eosinophils Absolute Auto 0.1 X10*3/uL (0.0-0.4); Hemoglobin 14.8 g/dl (14.0-18.0); Imm Gran Abs Auto 0.02 X10*3/uL (0.00-0.03); Imm Gran Pct Auto 0.3 % (0.0-0.4); Lymphocytes Absolute Auto 2.2 X10*3/uL (1.2-4.9); Lymphocytes Percent Auto 31.1 % (20-40); Mean Corpuscular HGB Conc 36.1 g/dl (31.0-36.0); Mean Corpuscular Hemoglobin 32.4 pg (27.0-33.0); Mean Corpuscular Volume 89.7 fL (80.0-98.0); Mean Platelet Volume 10.6 fL (9.4-12.4); Monocytes Absolute Auto 0.4 X10*3/uL (0.1-1.2); Monocytes Percent Auto 6.2 % (2-11); Neutrophils Absolute Auto 4.3 x10*3/uL (2.0-8.3); Neutrophils Percent Auto 59.8 % (45-73); Platelet Count 206 X10*3/uL (160-400); Red Blood Count 4.57 X10*6/uL (4.60-5.80); Red Cell Distribution Width 11.8 % (11.0-16.0); White Blood Count 7.1 X10*3/uL (4.8-10.8)
[2022-11-22 23:05] LABS: Appearance Urine Clear; Color Urine Yellow; Glucose Urine UA Negative (Negative); Leukocyte Esterase Urine Negative (Negative); Nitrite Urine Negative (Negative); Urine Blood Negative (Negative); Urine Ketones Negative (Negative); Urine Protein Negative (Neg-Trace)
[2022-11-22 23:05] LABS: Alanine Aminotransferase 16 U/L (0-40); Albumin Level 4.9 g/dL (3.5-5.0); Alkaline Phosphatase 52 U/L (39-117); Anion Gap 13 (12-20); Aspartate Amino Transferase 15 U/L (5-37); Bilirubin Direct 0.4 mg/dL (0.0-0.5); Bilirubin Total 1.5 mg/dL (0.0-1.0); Blood Urea Nitrogen 9 mg/dL (9-16); Calcium 9.8 mg/dL (8.4-10.2); Carbon Dioxide 29 mmol/L (22-29); Chloride 105 mmol/L (96-108); Estimated Glomerular Filt Rate > 60; Glucose Random 129 mg/dL (60-115); Lipase 19 U/L (8-78); Potassium 3.9 mmol/L (3.3-5.1); Sodium 143 mmol/L (135-145); Total Protein 6.6 g/dL (6.5-8.0)
--- NOTE | 2022-11-22 23:57 | ED_ITS ---
HPI - General Adult General Chief complaint: Abdominal Pain Stated complaint: lower back and abd pain Time Seen by Provider: 11/22/22 23:01 Source: patient Mode of arrival: ambulatory History of Present Illness HPI narrative: 32-year-old male who presents with complaints of anterior lower abdominal discomfort and he is notice that when he gets up in the morning his urine appears dark and concentrated and he has also noted yellow semen. He otherwise denies any fever, chills, nausea or vomiting and denies any unexplained weight loss. Related Data Previous Rx's Medication Instructions Recorded oxymetazoline 0.05 % nasal mist 2 spray intranasal Q12H PRN nasal 07/05/20 (Afrin (oxymetazoline)) congestion 3 days #15 mL amoxicillin 500 mg capsule 500 mg PO BID #20 caps 07/09/20 tramadol 50 mg tablet 50 mg PO BID PRN pain #14 tabs 07/09/20 amoxicillin 875 mg-potassium 1 tab PO Q12H 10 days #20 tabs 09/24/20 clavulanate 125 mg tablet (Augmentin) naproxen 500 mg tablet 500 mg PO BID PRN pain #20 tabs 09/24/20 oxycodone-acetaminophen 5 mg-325 1 tab PO TID PRN pain (scale score 09/24/20 mg tablet (Percocet) 7-10) #9 tabs oxycodone-acetaminophen 5 mg-325 1 tab PO Q4-6H PRN pain #14 tabs 11/09/ mg tablet (Percocet) albuterol sulfate 90 mcg/actuation 1 inh inhalation QID PRN shortness 08/23/21 aerosol inhaler of breath or wheezing #8.5 grams azithromycin 250 mg tablet See Rx Instructions PO .COMPLEX #6 08/23/21 tabs codeine 10 mg-guaifenesin 100 mg/5 5 ml PO Q6H PRN cold symptoms #120 08/23/21 mL oral liquid (Guaifenesin AC) mL ondansetron 4 mg disintegrating 4 mg PO Q8H PRN nausea and 10/30/21 tablet vomiting #20 tabs azithromycin 250 mg tablet See Rx Instructions PO .COMPLEX #6 01/18/22 tabs cyclobenzaprine 5 mg tablet 5 mg PO TID PRN muscle spasm #6 03/09/22 tabs ketorolac 10 mg tablet 10 mg PO Q6H PRN pain 5 days #20 03/09/22 tabs cyclobenzaprine 10 mg tablet 10 mg PO BEDTIME PRN muscle spasm 03/11/22 #4 tabs albuterol sulfate 90 mcg/actuation 2 puff inhalation Q4-6H PRN 09/09/22 aerosol inhaler (Ventolin HFA) wheezing #8.5 grams benzonatate 100 mg capsule 100 mg PO TID PRN cough #20 caps 09/09/22 prednisone 20 mg tablet 40 mg PO DAILY 5 days #10 tabs 09/09/22 loperamide 2 mg capsule 2 mg PO QID PRN loose stool 2 days 09/13/22 #8 caps ondansetron 4 mg disintegrating 4 mg PO Q8H PRN nausea and 09/13/22 tablet vomiting 3 days #9 tabs omeprazole 20 mg capsule,delayed 20 mg PO DAILY #30 caps 10/01/22 release Allergies Allergy/AdvReac Type Severity Reaction Status Date / Time No Known Allergies Allergy Verified 11/22/22 22:01 Review of Systems Review of Systems: Pertinent positives and negatives as stated in [facility] Past Medical History Source: nursing notes reviewed Medical History Patient denies medical problems Family History Family History Other Family history non-contributory Social History Social History Household Members: Family Alcohol intake: never Patient Tobacco Use Status: Never used Tobacco Substance Use Type: Marijuana Advance Directives: No Advance Directives Information Provided: No Physical Exam ED Vital Signs: Vital Signs - 24 hr 11/22/22 21:57 11/22/22 22:47 Temperature 98.2 F Pulse Rate 79 67 Respiratory Rate 18 18 Blood Pressure 122/89 123/73 Pulse Oximetry 98 99 Oxygen Delivery Method Room Air Room Air BMI result Body Mass Index 21.7 VITAL SIGNS: Reviewed. GENERAL: Well developed, well nourished, in no acute distress. HEAD: Normocephalic/atraumatic EYES: PERRLA, EOMI, no scleral icterus EARS: Ext canals without abnormality LUNGS: Normal breath sounds. No adventitious sounds or accessory muscle use. SpO2<99> CARDIOVASCULAR: Regular rate and rhythm without noted murmurs ABDOMEN: Soft, non-tender, non-distended with bowel sounds. MUSCULOSKELETAL: No tenderness, deformities, or effusions noted on gross inspection. EXTREMITIES: No cyanosis, clubbing or edema. SKIN: Inspection of the skin reveals no rashes, no jaundice NEUROLOGIC: Alert and oriented x 4. Strength and sensation to light touch were grossly intact x 4. Medical Decision Making Medical Decision Making MDM Narrative: 32-year-old male with history and clinical presentation after review of prior visits and reviewing the current workup patient has had chronic stable hyperbilirubinemia without evidence to suggest cholecystitis, pancreatitis, hepatitis. Patient is otherwise clinically stable, there is no evidence of urobiligen. It is my interpretation that patient is having nonspecific abdominal discomfort, benign abdominal exam without any symptoms to suggest infectious etiology and certainly no evidence to suggest renal colic. Strongly counseled patient on the importance of establishing care with a primary care provider, he was provided with a list of [place] primary care physicians. P atient was reassured regarding the color of his urine and semen given the fact that his bilirubin is elevated but will be provided with a referral to Urology. He is otherwise discharged home in stable condition. Differential Diagnosis Please see the discussion above Lab Data Please see the discussion above 11/22/22 22:42 11/22/22 22:42 Labs: Lab Results 11/22/22 11/22/22 11/22/22 Range/Units 22:42 22:42 22:58 WBC 7.1 (4.8-10.8) X10*3/uL RBC 4.57 L (4.60-5.80) X10*6/uL Hgb 14.8 (14.0-18.0) g/dl Hct 41.0 L (42.0-52.0) % MCV 89.7 (80.0-98.0) fL MCH 32.4 (27.0-33.0) pg MCHC 36.1 H (31.0-36.0) g/dl RDW 11.8 (11.0-16.0) % Plt Count 206 (160-400) X10*3/uL MPV 10.6 (9.4-12.4) fL Immature Gran % (Auto) 0.3 (0.0-0.4) % Neut % (Auto) 59.8 (45-73) % Lymph % (Auto) 31.1 (20-40) % [place] % (Auto) 6.2 (2-11) % Eos % (Auto) 2.0 (0-4) % Baso % (Auto) 0.6 (0-2) % Lymph # (Auto) 2.2 (1.2-4.9) X10*3/uL [place] # (Auto) 0.4 (0.1-1.2) X10*3/uL Eos # (Auto) 0.1 (0.0-0.4) X10*3/uL Baso # (Auto) 0.0 (0.0-0.2) X10*3/uL Abs Immat Gran (auto) 0.02 (0.00-0.03) X10*3/uL Absolute Neuts (auto) 4.3 (2.0-8.3) x10*3/uL Absolute Nucleated RBC 0.000 (0.0-0.012) X10*3/uL Nucleated RBC % (auto) 0.0 (0.0-0.2) /100WBC Sodium 143 (135-145) mmol/L Potassium 3.9 (3.3-5.1) mmol/L Chloride 105 (96-108) mmol/L Carbon Dioxide 29 (22-29) mmol/L Anion Gap 13 (12-20) BUN 9 (9-16) mg/dL Creatinine 0.93 (0.5-1.4) mg/dL Estim Creat Clear Calc 117.0 Estimated GFR > 60 Random Glucose 129 H (60-115) mg/dL Calcium 9.8 (8.4-10.2) mg/dL Total Bilirubin 1.5 H (0.0-1.0) mg/dL Direct Bilirubin 0.4 (0.0-0.5) mg/dL AST 15 (5-37) U/L ALT 16 (0-40) U/L Alkaline Phosphatase 52 (39-117) U/L Total Creatine Kinase 63 (38-174) U/L Total Protein 6.6 (6.5-8.0) g/dL Albumin 4.9 (3.5-5.0) g/dL Lipase 19 (8-78) U/L Urine Color Yellow Urine Appearance Clear Urine pH 7.0 (5.0-9.0) Ur Specific [place] 1.010 (1.005-1.025) Urine Protein Negative (Neg-Trace) mg/dL Urine Glucose (UA) Negative (Negative) mg/dL Urine Ketones Negative (Negative) mg/dL Urine Blood Negative (Negative) Urine Nitrite Negative (Negative) Ur Leukocyte Esterase Negative (Negative) External Record Review External record reviewed: Outpatient record and Prior outpatient labs Discharge Plan Discharge Clinical Impression: Abdominal discomfort, Hyperbilirubinemia Patient Disposition: Home, Self-Care Instructions: Abdominal Pain (ED) Additional Instructions: 1. Recommend [id number] Tylenol/ibuprofen as needed for pain control. Please increase the amount of water intake that you consume. 2. Isolated elevated bilirubin will need to be worked up further by your primary care provider but suspect this is benign. 3. You have been provided with a referral to follow-up with urology regarding the color affect on your semen. Return to the ER for any worsening symptoms. Prescriptions: No Action amoxicillin 500 mg capsule 500 mg PO BID Qty: 20 0RF tramadol 50 mg tablet 50 mg PO BID PRN (Reason: pain) Qty: 14 0RF Afrin (oxymetazoline) 0.05 % mist 2 spray intranasal Q12H PRN (Reason: nasal congestion) 3 Days Qty: 15 0RF amoxicillin-pot clavulanate [Augmentin] 875-125 mg tablet 1 tab PO Q12H 10 Days Qty: 20 0RF naproxen 500 mg tablet 500 mg PO BID PRN (Reason: pain) Qty: 20 0RF oxycodone-acetaminophen [Percocet] 5-325 mg tablet 1 tab PO TID PRN (Reason: pain (scale score 7-10)) Qty: 9 0RF oxycodone-acetaminophen [Percocet] 5-325 mg tablet 1 tab PO Q4-6H PRN (Reason: pain) Qty: 14 0RF albuterol sulfate 90 mcg/actuation HFA aerosol inhaler 1 inh inhalation QID PRN (Reason: shortness of breath or wheezing) Qty: 8.5 0RF azithromycin 250 mg tablet See Rx Instructions .ROUTE .COMPLEX Qty: 6 0RF Rx Instructions: take 500 mg today (day 1), then 250 mg for 4 days (days 2-5) codeine-guaifenesin [Guaifenesin AC] 10-100 mg/5 mL liquid 5 ml PO Q6H PRN (Reason: cold symptoms) Qty: 120 0RF ketorolac 10 mg tablet 10 mg PO Q6H PRN (Reason: pain) 5 Days Qty: 20 0RF Rx Instructions: 1. Patient received Toradol here in the emergency room. 2. Please instruct patient to stop all other anti-inflammatories. cyclobenzaprine 5 mg tablet 5 mg PO TID PRN (Reason: muscle spasm) Qty: 6 0RF ondansetron 4 mg tablet,disintegrating 4 mg PO Q8H PRN (Reason: nausea and vomiting) Qty: 20 0RF azithromycin 250 mg tablet See Rx Instructions .ROUTE .COMPLEX Qty: 6 0RF Rx Instructions: For 250 mg dose pack: take 500 mg today (day 1), then 250 mg for 4 days (days 2-5) cyclobenzaprine 10 mg tablet 10 mg PO BEDTIME PRN (Reason: muscle spasm) Qty: 4 0RF prednisone 20 mg tablet 40 mg PO DAILY 5 Days Qty: 10 0RF albuterol sulfate [Ventolin HFA] 90 mcg/actuation HFA aerosol inhaler 2 puff inhalation Q4-6H PRN (Reason: wheezing) Qty: 8.5 0RF benzonatate 100 mg capsule 100 mg PO TID PRN (Reason: cough) Qty: 20 0RF ondansetron 4 mg tablet,disintegrating 4 mg PO Q8H PRN (Reason: nausea and vomiting) 3 Days Qty: 9 0RF loperamide 2 mg capsule 2 mg PO QID PRN (Reason: loose stool) 2 Days Qty: 8 0RF omeprazole 20 mg capsule,delayed release(DR/EC) 20 mg PO DAILY Qty: 30 0RF Referrals: Ricky Augustine MD [Physician] - (32M isolated hyperbilirubinemia with concerns regarding yellow semen . No PCP, work-up in the ER no significant findings.)
== END 2022-11-23 00:16 | disposition home or self-care (01) ==
PROVIDERS: Emergency Provider Student in an Organized Health Care Education/Training Program
DX: M54.50 Low back pain, unspecified (principal); R10.30 Lower abdominal pain, unspecified; E80.6 Other disorders of bilirubin metabolism; Z79.899 Other long term (current) drug therapy
CPT/HCPCS: 36415; 80048; 80076; 81003; 82550; 83690; 85025; 99283

== ENCOUNTER 2023-06-07 20:18 | Emergency (ER) | payer OTHER, SELFPAY ==
--- NOTE | ~2023-06-07 | XR_ITS ---
EXAMINATION: XR ABDOMEN KUB CLINICAL INDICATION: Abdominal pain COMPARISON: 10/01/2022 TECHNIQUE: AP view of the abdomen. FINDINGS: Bowel gas pattern is nonobstructive. Mild to moderate stool in the colon. Several calcifications in the pelvis favor phleboliths. Included lung bases are well-aerated. No acute osseous findings are seen. XR/XR KUB IMPRESSION: Nonobstructive bowel gas pattern.
--- NOTE | 2023-06-07 20:20 | ED.ABDPAIN ---
HPI - Abdominal Pain General Chief Complaint: Abdominal Pain Stated Complaint: abd pain Time Seen by Provider: 06/08/23 02:03 Source: patient Mode of arrival: ambulatory History of Present Illness HPI narrative: 35-year-old male who presents for left flank pain without dysuria, reports mild nausea but no vomiting and no diarrhea and denies any fevers or chills. Related Data Previous Rx's Medication Instructions Recorded oxymetazoline 0.05 % nasal mist 2 spray intranasal Q12H PRN nasal 07/05/20 (Afrin (oxymetazoline)) congestion 3 days #15 mL amoxicillin 500 mg capsule 500 mg PO BID #20 caps 07/09/20 tramadol 50 mg tablet 50 mg PO BID PRN pain #14 tabs 07/09/20 amoxicillin 875 mg-potassium 1 tab PO Q12H 10 days #20 tabs 09/24/20 clavulanate 125 mg tablet (Augmentin) naproxen 500 mg tablet 500 mg PO BID PRN pain #20 tabs 09/24/20 oxycodone-acetaminophen 5 mg-325 1 tab PO TID PRN pain (scale score 09/24/20 mg tablet (Percocet) 7-10) #9 tabs oxycodone-acetaminophen 5 mg-325 1 tab PO Q4-6H PRN pain #14 tabs 11/09/21 mg tablet (Percocet) albuterol sulfate 90 mcg/actuation 1 inh inhalation QID PRN shortness 08/23/21 aerosol inhaler of breath or wheezing #8.5 grams azithromycin 250 mg tablet See Rx Instructions PO .COMPLEX #6 08/23/21 tabs codeine 10 mg-guaifenesin 100 mg/5 5 ml PO Q6H PRN cold symptoms #120 08/23/21 mL oral liquid (Guaifenesin AC) mL ondansetron 4 mg disintegrating 4 mg PO Q8H PRN nausea and 10/30/21 tablet vomiting #20 tabs azithromycin 250 mg tablet See Rx Instructions PO .COMPLEX #6 01/18/22 tabs cyclobenzaprine 5 mg tablet 5 mg PO TID PRN muscle spasm #6 03/09/22 tabs ketorolac 10 mg tablet 10 mg PO Q6H PRN pain 5 days #20 03/09/22 tabs cyclobenzaprine 10 mg tablet 10 mg PO BEDTIME PRN muscle spasm 03/11/22 #4 tabs albuterol sulfate 90 mcg/actuation 2 puff inhalation Q4-6H PRN 09/09/22 aerosol inhaler (Ventolin HFA) wheezing #8.5 grams benzonatate 100 mg capsule 100 mg PO TID PRN cough #20 caps 09/09/22 prednisone 20 mg tablet 40 mg (2 x 20 mg) PO DAILY 5 days 09/09/22 #10 tabs loperamide 2 mg capsule 2 mg PO QID PRN loose stool 2 days 09/13/22 #8 caps ondansetron 4 mg disintegrating 4 mg PO Q8H PRN nausea and 09/13/22 tablet vomiting 3 days #9 tabs omeprazole 20 mg capsule,delayed 20 mg PO DAILY #30 caps 10/01/22 release Allergies Allergy/AdvReac Type Severity Reaction Status Date / Time No Known Allergies Allergy Verified 11/22/22 22:01 Review of Systems Review of Systems Pertinent positives and negatives as stated in HPI PMFSH Past Medical History Source: nursing notes reviewed Medical History Patient denies medical problems Family History Family History Other Family history non-contributory Social History Social History Household Members: Family Alcohol intake: current Alcohol intake frequency: holidays/special occasions only Patient Tobacco Use Status: Never used Tobacco Smoked in Last 30 Days: No Use of substances other than those prescribed or required for medical reasons: No Substance Use Type: Marijuana Advance Directives: No Advance Directives Information Provided: No Physical Exam ED Vital Signs: Vital Signs - 24 hr 06/07/23 20:21 06/08/23 01:50 Temperature 97.7 F 98.0 F Pulse Rate 68 61 Respiratory Rate 20 16 Blood Pressure 129/84 131/75 Pulse Oximetry 99 98 Oxygen Delivery Method Room Air Room Air BMI result Body Mass Index 23.1 VITAL SIGNS: Reviewed. GENERAL: Well developed, well nourished, in no acute distress. HEAD: Normocephalic/atraumatic EYES: PERRLA, EOMI EARS: Ext canals without abnormality NOSE: Nares patent bilateral OROPHARYNX: no oral lesions noted, posterior pharynx clear NECK: Supple, no adenopathy LUNGS: Normal breath sounds. No adventitious sounds or accessory muscle use. SpO2<98> CARDIOVASCULAR: Regular rate and rhythm without noted murmurs ABDOMEN: Soft, non-tender, non-distended with bowel sounds, there is no scar tissue at the anterior aspect of the left flank that patient reports discomfort. MUSCULOSKELETAL: No tenderness, deformities, or effusions noted on gross inspection. EXTREMITIES: No cyanosis, clubbing or edema. SKIN: Inspection of the skin reveals no rashes NEUROLOGIC: Alert and oriented x 4. Strength and sensation to light touch were grossly intact x 4. Course Course Course Narrative: This is the rapid medical exam. deferred additional HPI, ROS, PE to primary provider. 33 yo male here with complaints of left sided abdominal pain, nausea x 1 day. No vomiting, diarrhea, fevers, chills, urinary symptoms. WIll obtain labs, UA VSS Medical Decision Making Medical Decision Making MDM Narrative: 33-year-old male with history and clinical presentation not consistent with evidence of a herniation, this appears to me musculoskeletal in nature as there are no obstructive symptoms or symptoms to suggest intra-abdominal infection. I have reviewed all investigations and hematologic indices are grossly within normal limits without leukocytosis or left shift, no anemia or thrombocytopenia. Chemistry indices are also significantly within normal limits or chronically stable. There is no evidence of CARLOS ER electrolyte/transaminase derangements. Patient's total bilirubin is chronically elevated at 1.2. Urinalysis is negative for UTI here hematuria and KUB was negative for evidence of any obstructive or radiopaque objects. Patient was offered combination analgesics and instructed to follow-up with his primary care doctor. Differential Diagnosis Differential Diagnoses: The differential diagnosis associated with the presentation includes Please see the discussion above Admission/Observation Consideration of admission/observation: Escalation of care including admission/observation considered Please see the discussion above Lab Data MDM Lab Attestation statement: I reviewed the patient's lab results. Please see the discussion above 06/07/23 20:48 06/07/23 20:48 Labs: Lab Results 06/07/23 06/08/23 Range/Units 20:48 02:53 WBC 6.1 (4.8-10.8) X10*3/uL RBC 4.91 (4.60-5.80) X10*6/uL Hgb 15.7 (14.0-18.0) g/dl Hct 43.3 (42.0-52.0) % MCV 88.2 (80.0-98.0) fL MCH 32.0 (27.0-33.0) pg MCHC 36.3 H (31.0-36.0) g/dl RDW 11.7 (11.0-16.0) % Plt Count 197 (160-400) X10*3/uL MPV 10.1 (9.4-12.4) fL Immature Gran % (Auto) 0.2 (0.0-0.4) % Neut % (Auto) 64.1 (45-73) % Lymph % (Auto) 26.8 (20-40) % [place] % (Auto) 6.6 (2-11) % Eos % (Auto) 1.6 (0-4) % Baso % (Auto) 0.7 (0-2) % Lymph # (Auto) 1.6 (1.2-4.9) X10*3/uL [place] # (Auto) 0.4 (0.1-1.2) X10*3/uL Eos # (Auto) 0.1 (0.0-0.4) X10*3/uL Baso # (Auto) 0.0 (0.0-0.2) X10*3/uL Abs Immat Gran (auto) 0.01 (0.00-0.03) X10*3/uL Absolute Neuts (auto) 3.9 (2.0-8.3) x10*3/uL Absolute Nucleated RBC 0.000 (0.0-0.012) X10*3/uL Nucleated RBC % (auto) 0.0 (0.0-0.2) /100WBC Sodium 141 (135-145) mmol/L Potassium 4.0 (3.3-5.1) mmol/L Chloride 105 (96-108) mmol/L Carbon Dioxide 27 (22-29) mmol/L Anion Gap 13 (12-20) BUN 9 (9-16) mg/dL Creatinine 0.84 (0.5-1.4) mg/dL Estim Creat Clear Calc 136.4 Estimated GFR > 60 Random Glucose 99 (60-115) mg/dL Calcium 9.9 (8.4-10.2) mg/dL Total Bilirubin 1.2 H (0.0-1.0) mg/dL Direct Bilirubin 0.4 (0.0-0.5) mg/dL AST 15 (5-37) U/L ALT 15 (0-40) U/L Alkaline Phosphatase 56 (39-117) U/L Total Protein 7.3 (6.5-8.0) g/dL Albumin 4.9 (3.5-5.0) g/dL Lipase 16 (8-78) U/L Urine Color Yellow Urine Appearance Clear Urine pH 6.5 (5.0-9.0) Ur Specific [place] 1.015 (1.005-1.025) Urine Protein Negative (Neg-Trace) mg/dL Urine Glucose (UA) Negative (Negative) mg/dL Urine Ketones Negative (Negative) mg/dL Urine Blood Negative (Negative) Urine Nitrite Negative (Negative) Ur Leukocyte Esterase Negative (Negative) Radiology Impression Discussion of test interpretation with radiology: I have reviewed the radiologist's reading. Radiologist Impression: Please see the discussion above External Record Review External record reviewed: Outpatient record, Prior outpatient labs and Prior outpatient radiology Discharge Plan Discharge Clinical Impression: Musculoskeletal pain Patient Disposition: Home, Self-Care Instructions: Musculoskeletal Pain (ED) Additional Instructions: Your workup today was negative for any of the dense intra-abdominal infection, there does not appear to be any kidney stones and no evidence to suggest hernias. The working diagnosis is musculoskeletal related pain and I highly recommend [id number] Tylenol/ibuprofen in addition to the use of [id number] lidocaine patches. Please follow-up with your primary care doctor in the next 1-2 days. Return to the ER for any worsening symptoms. Prescriptions: No Action amoxicillin 500 mg capsule 500 mg PO BID Qty: 20 0RF tramadol 50 mg tablet 50 mg PO BID PRN (Reason: pain) Qty: 14 0RF Afrin (oxymetazoline) 0.05 % mist 2 spray intranasal Q12H PRN (Reason: nasal congestion) 3 Days Qty: 15 0RF amoxicillin-pot clavulanate [Augmentin] 875-125 mg tablet 1 tab PO Q12H 10 Days Qty: 20 0RF naproxen 500 mg tablet 500 mg PO BID PRN (Reason: pain) Qty: 20 0RF oxycodone-acetaminophen [Percocet] 5-325 mg tablet 1 tab PO TID PRN (Reason: pain (scale score 7-10)) Qty: 9 0RF oxycodone-acetaminophen [Percocet] 5-325 mg tablet 1 tab PO Q4-6H PRN (Reason: pain) Qty: 14 0RF albuterol sulfate 90 mcg/actuation HFA aerosol inhaler 1 inh inhalation QID PRN (Reason: shortness of breath or wheezing) Qty: 8.5 0RF azithromycin 250 mg tablet See Rx Instructions .ROUTE .COMPLEX Qty: 6 0RF Rx Instructions: take 500 mg today (day 1), then 250 mg for 4 days (days 2-5) codeine-guaifenesin [Guaifenesin AC] 10-100 mg/5 mL liquid 5 ml PO Q6H PRN (Reason: cold symptoms) Qty: 120 0RF ketorolac 10 mg tablet 10 mg PO Q6H PRN (Reason: pain) 5 Days Qty: 20 0RF Rx Instructions: 1. Patient received Toradol here in the emergency room. 2. Please instruct patient to stop all other anti-inflammatories. cyclobenzaprine 5 mg tablet 5 mg PO TID PRN (Reason: muscle spasm) Qty: 6 0RF ondansetron 4 mg tablet,disintegrating 4 mg PO Q8H PRN (Reason: nausea and vomiting) Qty: 20 0RF azithromycin 250 mg tablet See Rx Instructions .ROUTE .COMPLEX Qty: 6 0RF Rx Instructions: For 250 mg dose pack: take 500 mg today (day 1), then 250 mg for 4 days (days 2-5) cyclobenzaprine 10 mg tablet 10 mg PO BEDTIME PRN (Reason: muscle spasm) Qty: 4 0RF prednisone 20 mg tablet 40 mg PO DAILY 5 Days Qty: 10 0RF albuterol sulfate [Ventolin HFA] 90 mcg/actuation HFA aerosol inhaler 2 puff inhalation Q4-6H PRN (Reason: wheezing) Qty: 8.5 0RF benzonatate 100 mg capsule 100 mg PO TID PRN (Reason: cough) Qty: 20 0RF ondansetron 4 mg tablet,disintegrating 4 mg PO Q8H PRN (Reason: nausea and vomiting) 3 Days Qty: 9 0RF loperamide 2 mg capsule 2 mg PO QID PRN (Reason: loose stool) 2 Days Qty: 8 0RF omeprazole 20 mg capsule,delayed release(DR/EC) 20 mg PO DAILY Qty: 30 0RF
[2023-06-07 20:21] VITALS: BP 129/84; PULSE 68; RESP 20; TEMP 36.5; O2SAT 99; BMI 23.1
[2023-06-07 20:54] LABS: MANUAL DIFF FLAG NO
[2023-06-07 20:57] LABS: Basophils Percent Auto 0.7 % (0-2); Eosinophils Absolute Auto 0.1 X10*3/uL (0.0-0.4); Eosinophils Percent Auto 1.6 % (0-4); Hematocrit 43.3 % (42.0-52.0); Hemoglobin 15.7 g/dl (14.0-18.0); Imm Gran Abs Auto 0.01 X10*3/uL (0.00-0.03); Imm Gran Pct Auto 0.2 % (0.0-0.4); Lymphocytes Absolute Auto 1.6 X10*3/uL (1.2-4.9); Lymphocytes Percent Auto 26.8 % (20-40); Mean Corpuscular HGB Conc 36.3 g/dl (31.0-36.0); Mean Corpuscular Volume 88.2 fL (80.0-98.0); Mean Platelet Volume 10.1 fL (9.4-12.4); Monocytes Absolute Auto 0.4 X10*3/uL (0.1-1.2); Monocytes Percent Auto 6.6 % (2-11); Neutrophils Absolute Auto 3.9 x10*3/uL (2.0-8.3); Neutrophils Percent Auto 64.1 % (45-73); Platelet Count 197 X10*3/uL (160-400); Red Blood Count 4.91 X10*6/uL (4.60-5.80); Red Cell Distribution Width 11.7 % (11.0-16.0); White Blood Count 6.1 X10*3/uL (4.8-10.8)
[2023-06-07 21:11] LABS: Alanine Aminotransferase 15 U/L (0-40); Albumin Level 4.9 g/dL (3.5-5.0); Alkaline Phosphatase 56 U/L (39-117); Anion Gap 13 (12-20); Aspartate Amino Transferase 15 U/L (5-37); Bilirubin Direct 0.4 mg/dL (0.0-0.5); Bilirubin Total 1.2 mg/dL (0.0-1.0); Blood Urea Nitrogen 9 mg/dL (9-16); Calcium 9.9 mg/dL (8.4-10.2); Carbon Dioxide 27 mmol/L (22-29); Chloride 105 mmol/L (96-108); Creatinine Clr Calc Pharmacy 136.4; Estimated Glomerular Filt Rate > 60; Glucose Random 99 mg/dL (60-115); Lipase 16 U/L (8-78); Sodium 141 mmol/L (135-145); Total Protein 7.3 g/dL (6.5-8.0)
[2023-06-08 01:50] VITALS: BP 131/75; PULSE 61; RESP 16; TEMP 36.7; O2SAT 98
[2023-06-08 03:00] LABS: Appearance Urine Clear; Color Urine Yellow; Glucose Urine UA Negative (Negative); Leukocyte Esterase Urine Negative (Negative); Nitrite Urine Negative (Negative); PH 6.5 (5.0-9.0); Specific Gravity - Urine 1.015 (1.005-1.025); Urine Blood Negative (Negative); Urine Ketones Negative (Negative); Urine Protein Negative (Neg-Trace)
[2023-06-08 03:37] VITALS: BP 132/75; PULSE 67; RESP 18; O2SAT 99
== END 2023-06-08 04:00 | disposition home or self-care (01) ==
PROVIDERS: Nurse Practitioner Family; Emergency Provider Student in an Organized Health Care Education/Training Program
DX: M79.18 Myalgia, other site (principal); Z79.899 Other long term (current) drug therapy
CPT/HCPCS: 36415; 74018; 80048; 80076; 81003; 83690; 85025; 99283; 99284

== ENCOUNTER 2023-09-22 17:17 | Emergency (ER) | payer SELFPAY ==
[2023-09-22 17:47] VITALS: BP 138/72; PULSE 88; RESP 18; TEMP 36.5; O2SAT 98; BMI 23.1
[2023-09-22 18:20] LABS: COVID-19 Test Negative (Negative); IDNOW Serial# 08D9AD1C; IDNOW Serial# 152EDE1D; IDNOW Serial# 9DB6401D; Influenza A Negative (Negative); Influenza B2 Negative (Negative); Strep A Nucleic Acid Negative (Negative)
--- NOTE | 2023-09-22 18:34 | ED_ITS ---
HPI - URI/Sore Throat General Chief Complaint: Upper Respiratory Symptoms Stated Complaint: headach congested cough Time Seen by Provider: 09/22/23 18:24 Source: patient Mode of arrival: ambulatory Limitations: no limitations History of Present Illness HPI Narrative: Patient comes to the emergency room complaining of nasal congestion, sore throat, chills starting this morning. Patient denies any chest pain or sh ortness of breath. Related Data Previous Rx's Medication Instructions Recorded oxymetazoline 0.05 % nasal mist 2 spray intranasal Q12H PRN nasal 07/05/20 (Afrin (oxymetazoline)) congestion 3 days #15 mL amoxicillin 500 mg capsule 500 mg PO BID #20 caps 07/09/20 tramadol 50 mg tablet 50 mg PO BID PRN pain #14 tabs 07/09/20 amoxicillin 875 mg-potassium 1 tab PO Q12H 10 days #20 tabs 09/24/20 clavulanate 125 mg tablet (Augmentin) naproxen 500 mg tablet 500 mg PO BID PRN pain #20 tabs 09/24/20 oxycodone-acetaminophen 5 mg-325 1 tab PO TID PRN pain (scale score 09/24/20 mg tablet (Percocet) 7-10) #9 tabs oxycodone-acetaminophen 5 mg-325 1 tab PO Q4-6H PRN pain #14 tabs 11/09/21 mg tablet (Percocet) albuterol sulfate 90 mcg/actuation 1 inh inhalation QID PRN shortness 08/23/21 aerosol inhaler of breath or wheezing #8.5 grams azithromycin 250 mg tablet See Rx Instructions PO .COMPLEX #6 08/23/21 tabs codeine 10 mg-guaifenesin 100 mg/5 5 ml PO Q6H PRN cold symptoms #120 08/23/21 mL oral liquid (Guaifenesin AC) mL ondansetron 4 mg disintegrating 4 mg PO Q8H PRN nausea and 10/30/21 tablet vomiting #20 tabs azithromycin 250 mg tablet See Rx Instructions PO .COMPLEX #6 01/18/22 tabs cyclobenzaprine 5 mg tablet 5 mg PO TID PRN muscle spasm #6 03/09/22 tabs ketorolac 10 mg tablet 10 mg PO Q6H PRN pain 5 days #20 03/09/22 tabs cyclobenzaprine 10 mg tablet 10 mg PO BEDTIME PRN muscle spasm 03/11/22 #4 tabs albuterol sulfate 90 mcg/actuation 2 puff inhalation Q4-6H PRN 09/09/22 aerosol inhaler (Ventolin HFA) wheezing #8.5 grams benzonatate 100 mg capsule 100 mg PO TID PRN cough #20 caps 09/09/22 prednisone 20 mg tablet 40 mg (2 x 20 mg) PO DAILY 5 days 09/09/22 #10 tabs loperamide 2 mg capsule 2 mg PO QID PRN loose stool 2 days 09/13/22 #8 caps ondansetron 4 mg disintegrating 4 mg PO Q8H PRN nausea and 09/13/22 tablet vomiting 3 days #9 tabs omeprazole 20 mg capsule,delayed 20 mg PO DAILY #30 caps 10/01/22 release Allergies Allergy/AdvReac Type Severity Reaction Status Date / Time No Known Allergies Allergy Verified 11/22/22 22:01 Review of Systems Review of Systems: Constitutional : No Weight loss, No Fever, No Chills, No Night Sweats, No Fatigue, No Malaise ENT/Mouth : No Hearing loss, No Ear Pain, complaining of Nasal Congestion, No Sinus Pain, No Hoarseness, complaining of sore throat, No Rhinorrhea, No Swallowing Difficulty Eyes: No Eye Pain, No Swelling, No Redness, No Foreign Body, No Discharge, No Vision Changes Cardiovascular : No Chest Pain, No SOB, No Dyspnea on Exertion, No Orthopnea, No Edema, No Palpitations Respiratory : No Cough, No Sputum, No Wheezing, No Smoke Exposure, No Dyspnea Gastrointestinal : No Nausea, No Vomiting, No Diarrhea, No Constipation, No abdominal Pain, No Hematochezia, No Melena Genitourinary : no irregular bleeding, No Dysuria, No Urinary Frequency, No Hematuria, No Urinary Incontinence, No Urgency, No Flank Pain, No Urinary Flow Changes, No Hesitancy Musculoskeletal : No joint pain, No Myalgias, No Joint Swelling Skin : No Skin Lesions, No rash Neuro : No Weakness, No Numbness, No Paresthesias, No Loss of Consciousness, No Dizziness, No Headache Psych : No Anxiety/Panic, No Depression, No SI/HI/AH/VH, No Social Issues, Heme/Lymph: No Bruising, No Bleeding,No Lymphadenopathy Endocrine : No Polyuria, No Polydipsia, No Temperature Intolerance PMF Past Medical History Medical History Patient denies medical problems Family History Family History Other Family history non-contributory Social History Social History Household Members: Family Alcohol intake: current Alcohol intake frequency: holidays/special occasions only Patient Tobacco Use Status: Never used Tobacco Substance Use Type: Marijuana Advance Directives: No Advance Directives Information Provided: No Physical Exam Vital Signs: Vital Signs: Last Vital Signs Temp 97.7 F 09/22/23 17:47 Pulse 88 09/22/23 17:47 Resp 18 09/22/23 17:47 BP 138/72 09/22/23 17:47 Pulse Ox 98 09/22/23 17:47 O2 Del Method Room Air 09/22/23 17:47 BMI result Body Mass Index 23.1 Const: Other: Appearance: Alert. Oriented X3. No acute distress. Eyes: Pupils equal, round and reactive to light. ENT: Erythematous oropharynx, no exudates, no abscesses, uvula midline Neck: Normal inspection. Neck supple. No lymph nodes noted. No crepitus CVS: Normal heart rate and rhythm. Pulses normal. Normal S1 and S2 Respiratory: No respiratory distress. Breath sounds normal. No Wheezing. No rales Abdomen: Soft and nontender. No rigidity. No distention. Skin: Skin warm and dry. Normal skin color. Normal skin turgor. Extremities: No lower extremity edema. No Lacerations. No Rash Neuro: Oriented X 3. No motor deficit. No sensory deficit. Moving all extremities. No slurred speech. CN 2 through 12 grossly intact Psych: calm, cooperative, normal affect Medical Decision Making Medical Decision Making MDM Narrative: -my interpretation of labs: Negative for COVID strep or influenza -discussed with the patient that he likely has a viral syndrome. Differential Diagnosis Differential Diagnoses: The differential diagnosis associated with the presentation includes (As above) Lab Data Labs: Lab Results 09/22/23 Range/Units 18:01 COVID-19 ([facility]) Negative (Negative) COVID-19 Clin Com See Note Influenza Type A ([facility]) Negative (Negative) Influenza Type B ([facility]) Negative (Negative) Influenza A & B Note See Note S. pyogenes GrpA [facility]ON Negative (Negative) Discharge Plan Discharge Clinical Impression: Upper respiratory infection, viral Patient Disposition: Home, Self-Care Instructions: Upper Respiratory Infection (ED) Additional Instructions: Please follow-up with your primary care physician tomorrow. If you have any worsening or new symptoms, please return to the emergency room or call 911 Prescriptions: No Action amoxicillin 500 mg capsule 500 mg PO BID Qty: 20 0RF tramadol 50 mg tablet 50 mg PO BID PRN (Reason: pain) Qty: 14 0RF Afrin (oxymetazoline) 0.05 % mist 2 spray intranasal Q12H PRN (Reason: nasal congestion) 3 Days Qty: 15 0RF amoxicillin-pot clavulanate [Augmentin] 875-125 mg tablet 1 tab PO Q12H 10 Days Qty: 20 0RF naproxen 500 mg tablet 500 mg PO BID PRN (Reason: pain) Qty: 20 0RF oxycodone-acetaminophen [Percocet] 5-325 mg tablet 1 tab PO TID PRN (Reason: pain (scale score 7-10)) Qty: 9 0RF oxycodone-acetaminophen [Percocet] 5-325 mg tablet 1 tab PO Q4-6H PRN (Reason: pain) Qty: 14 0RF albuterol sulfate 90 mcg/actuation HFA aerosol inhaler 1 inh inhalation QID PRN (Reason: shortness of breath or wheezing) Qty: 8.5 0RF azithromycin 250 mg tablet See Rx Instructions .ROUTE .COMPLEX Qty: 6 0RF Rx Instructions: take 500 mg today (day 1), then 250 mg for 4 days (days 2-5) codeine-guaifenesin [Guaifenesin AC] 10-100 mg/5 mL liquid 5 ml PO Q6H PRN (Reason: cold symptoms) Qty: 120 0RF ketorolac 10 mg tablet 10 mg PO Q6H PRN (Reason: pain) 5 Days Qty: 20 0RF Rx Instructions: 1. Patient received Toradol here in the emergency room. 2. Please instruct patient to stop all other anti-inflammatories. cyclobenzaprine 5 mg tablet 5 mg PO TID PRN (Reason: muscle spasm) Qty: 6 0RF ondansetron 4 mg tablet,disintegrating 4 mg PO Q8H PRN (Reason: nausea and vomiting) Qty: 20 0RF azithromycin 250 mg tablet See Rx Instructions .ROUTE .COMPLEX Qty: 6 0RF Rx Instructions: For 250 mg dose pack: take 500 mg today (day 1), then 250 mg for 4 days (days 2-5) cyclobenzaprine 10 mg tablet 10 mg PO BEDTIME PRN (Reason: muscle spasm) Qty: 4 0RF prednisone 20 mg tablet 40 mg PO DAILY 5 Days Qty: 10 0RF albuterol sulfate [Ventolin HFA] 90 mcg/actuation HFA aerosol inhaler 2 puff inhalation Q4-6H PRN (Reason: wheezing) Qty: 8.5 0RF benzonatate 100 mg capsule 100 mg PO TID PRN (Reason: cough) Qty: 20 0RF ondansetron 4 mg tablet,disintegrating 4 mg PO Q8H PRN (Reason: nausea and vomiting) 3 Days Qty: 9 0RF loperamide 2 mg capsule 2 mg PO QID PRN (Reason: loose stool) 2 Days Qty: 8 0RF omeprazole 20 mg capsule,delayed release(DR/EC) 20 mg PO DAILY Qty: 30 0RF Stand Alone Forms: Work/School Release
[2023-09-22] MEDS: Lidocaine HCl Viscous 2 % 15 ML SOLUTION MUCOUS MEM (18:57)
[2023-09-22] MEDS: dexAMETHasone sod phosphate 4 MG/ML VIAL 6 MG IVPUSH (18:57)
[2023-09-22 19:00] VITALS: BP 123/73; PULSE 78; RESP 16; TEMP 36.6; O2SAT 98
== END 2023-09-22 19:04 | disposition home or self-care (01) ==
PROVIDERS: Emergency Provider Emergency Medicine
DX: J06.9 Acute upper respiratory infection, unspecified (principal); R05.9 Cough, unspecified; J02.9 Acute pharyngitis, unspecified; Z79.899 Other long term (current) drug therapy; Z11.52 Encounter for screening for COVID-19
CPT/HCPCS: 87502; 87635; 87651; 99283; 99284; J1100

== ENCOUNTER 2024-05-22 21:27 | Emergency (ER) | payer OTHER, SELFPAY ==
--- NOTE | ~2024-05-22 | CT_ITS ---
EXAMINATION: CT HEAD WITHOUT IV CONTRAST CLINICAL INFORMATION: severe DURAN, dizziness COMPARISON: CT head without contrast 10/30/2021 TECHNIQUE: Contiguous axial imaging was performed from the skull base to vertex without intravenous contrast. Sagittal and coronal reformatted images were obtained. This CT examination was performed using dose optimization techniques as appropriate, variously including the following: * Automated exposure control * Adjustment of mA and/or kV according to patient size (this includes techniques or standardized protocols for targeted exams where dose is matched to indication/reason for exam; i.e. extremities or head) Use of iterative reconstruction technique DLP: 631 mGy-cm FINDINGS: No acute osseous or soft tissue abnormality. The mastoid air cells and visualized portions of the paranasal sinuses are well aerated. There is no evidence of acute intracranial hemorrhage or territorial infarction. No abnormal mass effect or midline shift is seen. Ellis to white matter differentiation is well preserved. No extra-axial fluid collections are identified. No hydrocephalus. No significant volume loss. There is no abnormal attenuation within the brain parenchyma. CT/CT head/brain wo IV con IMPRESSION: No acute intracranial abnormality including hemorrhage, mass effect, hydrocephalus, or acute territorial edematous infarction. Electronically signed by: Hudson Crow MD 05/22/2024 11:22 PM EDT
[2024-05-22 21:29] VITALS: BP 124/57; PULSE 81; RESP 18; TEMP 36.8; O2SAT 98; BMI 23.7
--- NOTE | 2024-05-22 22:38 | ED.HA ---
HPI - Headache General Chief Complaint: Headache Stated Complaint: migraine Time Seen by Provider: 05/22/24 22:25 Source: patient Mode of arrival: ambulatory Limitations: no limitations History of Present Illness ED Provider: Dr. Ashley Houston HPI Narrative: Patient comes to the emergency room complaining of headache for 3 days and dizziness. Patient states that he was seen at [facility], got fluids and ibuprofen and sent home. Patient states that he has not felt good, continues having stabbing headache. Patient states that he went to work and could not finish his job due to the severe headache. Patient denies chest pain or shortness of breath, no nausea vomiting, complaining of photophobia Related Data Previous Rx's ?Medication ?Instructions ?Recorded oxymetazoline 0.05 % nasal mist 2 spray intranasal Q12H PRN nasal 07/05/20 (Afrin (oxymetazoline)) congestion 3 days #15 mL amoxicillin 500 mg capsule 500 mg PO BID #20 caps 07/09/20 tramadol 50 mg tablet 50 mg PO BID PRN pain #14 tabs 07/09/20 amoxicillin 875 mg-potassium 1 tab PO Q12H 10 days #20 tabs 09/24/20 clavulanate 125 mg tablet (Augmentin) naproxen 500 mg tablet 500 mg PO BID PRN pain #20 tabs 09/24/20 oxycodone-acetaminophen 5 mg-325 1 tab PO TID PRN pain (scale score 09/24/20 mg tablet (Percocet) 7-10) #9 tabs oxycodone-acetaminophen 5 mg-325 1 tab PO Q4-6H PRN pain #14 tabs 11/09/20 mg tablet (Percocet) albuterol sulfate 90 mcg/actuation 1 inh inhalation QID PRN shortness 08/23/21 aerosol inhaler of breath or wheezing #8.5 grams azithromycin 250 mg tablet See Rx Instructions PO .COMPLEX #6 08/23/21 tabs codeine 10 mg-guaifenesin 100 mg/5 5 ml PO Q6H PRN cold symptoms #120 08/23/21 mL oral liquid (Guaifenesin AC) mL ondansetron 4 mg disintegrating 4 mg PO Q8H PRN nausea and 10/30/21 tablet vomiting #20 tabs azithromycin 250 mg tablet See Rx Instructions PO .COMPLEX #6 01/18/22 tabs cyclobenzaprine 5 mg tablet 5 mg PO TID PRN muscle spasm #6 03/09/22 tabs ketorolac 10 mg tablet 10 mg PO Q6H PRN pain 5 days #20 03/09/22 tabs cyclobenzaprine 10 mg tablet 10 mg PO BEDTIME PRN muscle spasm 03/11/22 #4 tabs albuterol sulfate 90 mcg/actuation 2 puff inhalation Q4-6H PRN 09/09/22 aerosol inhaler (Ventolin HFA) wheezing #8.5 grams benzonatate 100 mg capsule 100 mg PO TID PRN cough #20 caps 09/09/22 prednisone 20 mg tablet 40 mg (2 x 20 mg) PO DAILY 5 days 09/09/22 #10 tabs loperamide 2 mg capsule 2 mg PO QID PRN loose stool 2 days 09/13/22 #8 caps ondansetron 4 mg disintegrating 4 mg PO Q8H PRN nausea and 09/13/22 tablet vomiting 3 days #9 tabs omeprazole 20 mg capsule,delayed 20 mg PO DAILY #30 caps 10/01/22 release sumatriptan succinate 50 mg tablet See Rx Instructions PO .COMPLEX 05/23/24 #10 tabs Allergies Allergy/AdvReac Type Severity Reaction Status Date / Time No Known Allergies Allergy Verified 05/22/24 21:31 Review of Systems Review of Systems: Constitutional : No Weight loss, No Fever, No Chills, No Night Sweats, No Fatigue, No Malaise ENT/Mouth : Complaining of photophobia, No Hearing loss, No Ear Pain, No Nasal Congestion, No Sinus Pain, No Hoarseness, No sore throat, No Rhinorrhea, No Swallowing Difficulty Eyes: No Eye Pain, No Swelling, No Redness, No Foreign Body, No Discharge, No Vision Changes Cardiovascular : No Chest Pain, No SOB, No Dyspnea on Exertion, No Orthopnea, No Edema, No Palpitations Respiratory : No Cough, No Sputum, No Wheezing, No Smoke Exposure, No Dyspnea Gastrointestinal : No Nausea, No Vomiting, No Diarrhea, No Constipation, No abdominal Pain, No Hematochezia, No Melena Genitourinary : no irregular bleeding, No Dysuria, No Urinary Frequency, No Hematuria, No Urinary Incontinence, No Urgency, No Flank Pain, No Urinary Flow Changes, No Hesitancy Musculoskeletal : No joint pain, No Myalgias, No Joint Swelling Skin : No Skin Lesions, No rash Neuro : No Weakness, No Numbness, No Paresthesias, No Loss of Consciousness, No Dizziness, complaining of Headache Psych : No Anxiety/Panic, No Depression, No SI/HI/AH/VH, No Social Issues, Heme/Lymph: No Bruising, No Bleeding,No Lymphadenopathy Endocrine : No Polyuria, No Polydipsia, No Temperature Intolerance [facility] Past Medical History Medical History Patient denies medical problems Family History Family History Other Family history non-contributory Social History Social History Household Members: Family Alcohol intake: current Alcohol intake frequency: a few times a month Patient Tobacco Use Status: Never used Tobacco Substance Use Type: Marijuana Advance Directives: No Advance Directives Information Provided: Yes Do you have a plan to hurt others: No Plan Physical Exam Vital Signs: Vital Signs: Last Vital Signs Temp 97.9 F 05/23/24 01:15 Pulse 62 05/23/24 01:15 Resp 16 05/23/24 01:15 BP 120/72 05/23/24 01:15 Pulse Ox 97 05/23/24 01:15 O2 Del Method Room Air 05/23/24 01:15 BMI result Body Mass Index 23.7 Const: Other: Appearance: Alert. Oriented X3. No acute distress. Eyes: Pupils equal, round and reactive to light. Patient has photophobia ENT: Pharynx normal. Neck: Normal inspection. Neck supple. No lymph nodes noted. No crepitus CVS: Normal heart rate and rhythm. Pulses normal. Normal S1 and S2 Respiratory: No respiratory distress. Breath sounds normal. No Wheezing. No rales Abdomen: Soft and nontender. No rigidity. No distention. Skin: Skin warm and dry. Normal skin color. Normal skin turgor. Extremities: No lower extremity edema. No Lacerations. No Rash Neuro: Oriented X 3. No motor deficit. No sensory deficit. Moving all extremities. No slurred speech. CN 2 through 12 grossly intact Psych: calm, cooperative, normal affect Course Course Course Narrative: Patient receiving 250 mL of normal saline, Toradol, Benadryl, Reglan -CT scan pending Medications Administered Discontinued Medications Generic Name Dose Route Start Last Admin Trade Name Juanito PRN Reason Stop Dose Admin Acetaminophen/Butalbital/Caffeine 1 tab 05/23/24 00:51 05/23/24 00:56 Butalb/Acetamin/Caff 50/325/40 Tablet PO 05/23/24 00:52 1 tab ONCE ONE Administration Diphenhydramine HCl 25 mg 05/22/24 22:32 05/22/24 23:41 Diphenhydramine Hcl 50 Mg/Ml Vial IVPUSH 05/22/24 22:33 25 mg ONCE ONE Administration Sodium Chloride 999 mls @ 250 mls/hr 05/22/24 22:45 05/22/24 23:42 Ns IV 05/23/24 02:44 250 mls/hr .Q4H TAM Administration Ketorolac Tromethamine 30 mg 05/22/24 22:32 05/22/24 23:42 Ketorolac Tromethamine 30 Mg/Ml Vial IVPUSH 05/22/24 22:33 30 mg ONCE ONE Administration Metoclopramide HCl 10 mg 05/22/24 22:32 05/22/24 23:42 Metoclopramide Hcl 10 Mg/2 Ml Vial IVPUSH 05/22/24 22:33 10 mg ONCE ONE Administration Medical Decision Making Medical Decision Making MDM Narrative: Patient is neurologically intact -patient was giving IV fluids, Reglan, ketorolac and Benadryl -patient needed an additional dose of Fioricet -my interpretation of CT scan, no obvious abnormality. -U tox pending, patient left without giving a urine sample Differential Diagnosis Differential Diagnoses: The differential diagnosis associated with the presentation includes (Tension headache, migraine headache) Independent Interpretation I performed an independent interpretation of an: CT Scan Radiology Impression Discussion of test interpretation with radiology: I have reviewed the radiologist's reading. Radiologist Impression: FINDINGS: No acute osseous or soft tissue abnormality. The mastoid air cells and visualized portions of the paranasal sinuses are well aerated. There is no evidence of acute intracranial hemorrhage or territorial infarction. No abnormal mass effect or midline shift is seen. Ellis to white matter differentiation is well preserved. No extra-axial fluid collections are identified. No hydrocephalus. No significant volume loss. There is no abnormal attenuation within the brain parenchyma. CT/CT head/brain wo IV con IMPRESSION: No acute intracranial abnormality including hemorrhage, mass effect, hydrocephalus, or acute territorial edematous infarction. Discharge Plan Discharge Clinical Impression: Migraine Patient Disposition: Home, Self-Care Instructions: Migraine Headache (ED) Additional Instructions: Please follow-up with your primary care physician tomorrow. If you have any worsening or new symptoms, please return to the emergency room or call 911 Prescriptions: New sumatriptan succinate 50 mg tablet See Rx Instructions .ROUTE .COMPLEX Qty: 10 0RF Rx Instructions: take 1 tab at onset of headache; if no relief may repeat 1 tab after at least 2 hrs; max = 4 tabs/24 hr No Action amoxicillin 500 mg capsule 500 mg PO BID Qty: 20 0RF tramadol 50 mg tablet 50 mg PO BID PRN (Reason: pain) Qty: 14 0RF Afrin (oxymetazoline) 0.05 % mist 2 spray intranasal Q12H PRN (Reason: nasal congestion) 3 Days Qty: 15 0RF amoxicillin-pot clavulanate [Augmentin] 875-125 mg tablet 1 tab PO Q12H 10 Days Qty: 20 0RF naproxen 500 mg tablet 500 mg PO BID PRN (Reason: pain) Qty: 20 0RF oxycodone-acetaminophen [Percocet] 5-325 mg tablet 1 tab PO TID PRN (Reason: pain (scale score 7-10)) Qty: 9 0RF oxycodone-acetaminophen [Percocet] 5-325 mg tablet 1 tab PO Q4-6H PRN (Reason: pain) Qty: 14 0RF albuterol sulfate 90 mcg/actuation HFA aerosol inhaler 1 inh inhalation QID PRN (Reason: shortness of breath or wheezing) Qty: 8.5 0RF azithromycin 250 mg tablet See Rx Instructions .ROUTE .COMPLEX Qty: 6 0RF Rx Instructions: take 500 mg today (day 1), then 250 mg for 4 days (days 2-5) codeine-guaifenesin [Guaifenesin AC] 10-100 mg/5 mL liquid 5 ml PO Q6H PRN (Reason: cold symptoms) Qty: 120 0RF ketorolac 10 mg tablet 10 mg PO Q6H PRN (Reason: pain) 5 Days Qty: 20 0RF Rx Instructions: 1. Patient received Toradol here in the emergency room. 2. Please instruct patient to stop all other anti-inflammatories. cyclobenzaprine 5 mg tablet 5 mg PO TID PRN (Reason: muscle spasm) Qty: 6 0RF ondansetron 4 mg tablet,disintegrating 4 mg PO Q8H PRN (Reason: nausea and vomiting) Qty: 20 0RF azithromycin 250 mg tablet See Rx Instructions .ROUTE .COMPLEX Qty: 6 0RF Rx Instructions: For 250 mg dose pack: take 500 mg today (day 1), then 250 mg for 4 days (days 2-5) cyclobenzaprine 10 mg tablet 10 mg PO BEDTIME PRN (Reason: muscle spasm) Qty: 4 0RF prednisone 20 mg tablet 40 mg PO DAILY 5 Days Qty: 10 0RF albuterol sulfate [Ventolin HFA] 90 mcg/actuation HFA aerosol inhaler 2 puff inhalation Q4-6H PRN (Reason: wheezing) Qty: 8.5 0RF benzonatate 100 mg capsule 100 mg PO TID PRN (Reason: cough) Qty: 20 0RF ondansetron 4 mg tablet,disintegrating 4 mg PO Q8H PRN (Reason: nausea and vomiting) 3 Days Qty: 9 0RF loperamide 2 mg capsule 2 mg PO QID PRN (Reason: loose stool) 2 Days Qty: 8 0RF omeprazole 20 mg capsule,delayed release(DR/EC) 20 mg PO DAILY Qty: 30 0RF Interventions: ED Discharge Assessment Last Done: 05/23/24 01:15 Discharge Date/Time: 05/23/24 01:16 Print Language: Argentine
--- NOTE | 2024-05-22 23:14 | PC.NURSE ---
Per provider orders 250ml 0.9% sodium chloride given due to verbal orders of .
[2024-05-22 23:23] VITALS: BP 120/72; PULSE 62; RESP 16; TEMP 36.6; O2SAT 97
[2024-05-22] MEDS: diphenhydrAMINE HCL 50 MG/ML VIAL 25 MG IVPUSH (23:41)
[2024-05-22] MEDS: Ketorolac Tromethamine 30 MG/ML VIAL IVPUSH (23:42)
[2024-05-22] MEDS: 0.9 % Sodium Chloride 999 ML 250 ML IV (23:42)
[2024-05-22] MEDS: Metoclopramide HCl 10 MG/2 ML VIAL IVPUSH (23:42)
[2024-05-23] MEDS: Butalb/Acetamin/Caff 50/325/40 TABLET 1 TAB PO (00:56)
[2024-05-23 01:15] VITALS: BP 120/72; PULSE 62; RESP 16; TEMP 36.6; O2SAT 97
== END 2024-05-23 01:16 | disposition home or self-care (01) ==
PROVIDERS: Emergency Provider Emergency Medicine
DX: G43.909 Migraine, unspecified, not intractable, without status migrainosus (principal); R42 Dizziness and giddiness; R11.2 Nausea with vomiting, unspecified; Z79.899 Other long term (current) drug therapy
CPT/HCPCS: 70450; 96374; 96375; 99284; J1200; J1885; J2765

== ENCOUNTER 2024-07-26 16:00 | Emergency (ER) | payer SELFPAY ==
--- NOTE | ~2024-07-26 | XR_ITS ---
EXAMINATION: XR SHOULDER, LEFT CLINICAL INFORMATION: pain COMPARISON: None available. TECHNIQUE: AP external rotation, Grashey, scapular Y, and axillary views of the left shoulder. FINDINGS: The bones and soft tissues are normal. No fracture. Glenohumeral and acromioclavicular alignment is anatomic with normal joint space. No abnormal soft tissue calcifications. XR/XR shoulder LT min 2V IMPRESSION: Normal left shoulder. Electronically signed by: Nikos Barriga MD 07/26/2024 05:48 PM EST
[2024-07-26 16:23] VITALS: BP 130/92; PULSE 98; RESP 16; TEMP 36.9; O2SAT 98; BMI 24.8
--- NOTE | 2024-07-26 16:31 | ED.EXTPRO ---
HPI - Extremity Problem General Chief complaint: Extremity Injury, Upper Stated complaint: left shoulder pain Time Seen by Provider: 07/26/24 17:46 Source: patient Limitations: no limitations History of Present Illness ED Provider: Emi norwood PA-C HPI Narrative: 34-year-old male presents with left shoulder pain x1 day. Pain over left lateral neck radiates to anterior shoulder and down the upper extremity. Pain is sharp at times, worse with movement of left upper extremity. Patient performs a great deal of physical activity including heavy lifting at his place of employment. Denies paresthesia or weakness of the upper extremity. Denies headache, or visual changes. Related Data Previous Rx's ?Medication ?Instructions ?Recorded oxymetazoline 0.05 % nasal mist 2 spray intranasal Q12H PRN nasal 07/05/20 (Afrin (oxymetazoline)) congestion 3 days #15 mL amoxicillin 500 mg capsule 500 mg PO BID #20 caps 07/09/20 tramadol 50 mg tablet 50 mg PO BID PRN pain #14 tabs 07/09/20 amoxicillin 875 mg-potassium 1 tab PO Q12H 10 days #20 tabs 09/24/20 clavulanate 125 mg tablet (Augmentin) naproxen 500 mg tablet 500 mg PO BID PRN pain #20 tabs 09/24/20 oxycodone-acetaminophen 5 mg-325 1 tab PO TID PRN pain (scale score 09/24/20 mg tablet (Percocet) 7-10) #9 tabs oxycodone-acetaminophen 5 mg-325 1 tab PO Q4-6H PRN pain #14 tabs 11/09/20 mg tablet (Percocet) albuterol sulfate 90 mcg/actuation 1 inh inhalation QID PRN shortness 08/23/21 aerosol inhaler of breath or wheezing #8.5 grams azithromycin 250 mg tablet See Rx Instructions PO .COMPLEX #6 08/23/21 tabs codeine 10 mg-guaifenesin 100 mg/5 5 ml PO Q6H PRN cold symptoms #120 08/23/21 mL oral liquid (Guaifenesin AC) mL ondansetron 4 mg disintegrating 4 mg PO Q8H PRN nausea and 10/30/21 tablet vomiting #20 tabs azithromycin 250 mg tablet See Rx Instructions PO .COMPLEX #6 01/18/22 tabs cyclobenzaprine 5 mg tablet 5 mg PO TID PRN muscle spasm #6 03/09/22 tabs ketorolac 10 mg tablet 10 mg PO Q6H PRN pain 5 days #20 03/09/22 tabs cyclobenzaprine 10 mg tablet 10 mg PO BEDTIME PRN muscle spasm 03/11/22 #4 tabs albuterol sulfate 90 mcg/actuation 2 puff inhalation Q4-6H PRN 09/09/22 aerosol inhaler (Ventolin HFA) wheezing #8.5 grams benzonatate 100 mg capsule 100 mg PO TID PRN cough #20 caps 09/09/22 prednisone 20 mg tablet 40 mg (2 x 20 mg) PO DAILY 5 days 09/09/22 #10 tabs loperamide 2 mg capsule 2 mg PO QID PRN loose stool 2 days 09/13/22 #8 caps ondansetron 4 mg disintegrating 4 mg PO Q8H PRN nausea and 09/13/22 tablet vomiting 3 days #9 tabs omeprazole 20 mg capsule,delayed 20 mg PO DAILY #30 caps 10/01/22 release sumatriptan succinate 50 mg tablet See Rx Instructions PO .COMPLEX 05/23/24 #10 tabs meloxicam 15 mg tablet 15 mg PO DAILY #7 tabs 07/26/24 methocarbamol 750 mg tablet 1,500 mg (2 x 750 mg) PO TID PRN 07/26/24 pain #20 tabs Allergies Allergy/AdvReac Type Severity Reaction Status Date / Time No Known Allergies Allergy Verified 07/26/24 16:23 Review of Systems Review of Systems: Yes all other systems are reviewed and are negative Constitutional: Constitutional: Denies fatigue, Denies fever(s) and Denies headache(s) ENT: Denies headache(s) and Reports neck pain Cardiovascular: Cardiovascular: Denies chest pain and Denies dyspnea Respiratory: Respiratory: Denies dyspnea Musculoskeletal: Musculoskeletal: Reports arthralgias, Denies joint swelling, Reports neck pain, Denies numbness and Denies tingling Neurologic: Denies headache(s), Denies numbness and Denies tingling Endocrine: Endocrine: Denies fatigue PMFSH Past Medical History Attestation statement: The following information was validated with the patient. Medical History Patient denies medical problems Family History Family History Other Family history non-contributory Social History Social History Household Members: Family Alcohol intake: current Alcohol intake frequency: a few times a month Patient Tobacco Use Status: Never used Tobacco Substance Use Type: Marijuana Advance Directives: No Advance Directives Information Provided: Yes Do you have a plan to hurt others: No Plan Physical Exam Vital Signs: Vital Signs: Last Vital Signs Temp 98.4 F 07/26/24 16:23 Pulse 98 07/26/24 16:23 Resp 16 07/26/24 16:23 BP 130/92 H 07/26/24 16:23 Pulse Ox 98 07/26/24 16:23 O2 Del Method Room Air 07/26/24 16:23 BMI result Body Mass Index 24.8 Const: Other: Alert, well-appearing Orientation/consciousness: patient oriented x3 Neck: Other: Full range of motion Resp: Effort & Inspection: normal respiratory effort Cardio: Other: Normal peripheral perfusion Skin: Other: Warm dry no rash Neuro: General: patient oriented x3, no focal motor deficits and CN's II-XI intact bilaterally Extrem: Other: Strength 5/5 bilateral upper extremities with resistance. Focal pain with the bicipital groove on the left, no deformity no overlying erythema or warmth, patient has full range of motion. Psych: Other: Calm cooperative Medical Decision Making Medical Decision Making MDM Narrative: 34-year-old male presents with left shoulder pain x1 day. Pain over left lateral neck radiates to anterior shoulder and down the upper extremity. Pain is sharp at times, worse with movement of left upper extremity. Patient performs a great deal of physical activity including heavy lifting at his place of employment. Denies paresthesia or weakness of the upper extremity. Denies headache, or visual changes. Problem: Repetitive activity History: Per patient I have considered the following differential diagnoses: Cervical radiculopathy, biceps tendinitis, fracture, dislocation, sprain , VAD Plan: Patient's exam was consistent with biceps tendinitis, however he is having some musculoskeletal strain of his neck as well. Thought about VAD, however there was no active preceding heavy lifting activity that precipitated these symptoms, he is also neurologically intact. We will be treating with the anti-inflammatory and a muscle relaxant. He can follow up with primary care, he may require physical therapy at some point. X-ray was obtained from triage. I have independently reviewed the following tests: X-ray left shoulder: No fracture no dislocation, no arthritic changes. Discharge Plan Discharge Clinical Impression: Biceps tendinitis on left, Cervical strain Patient Disposition: Home, Self-Care Instructions: Cervical Strain (ED), Tendinitis (ED) Additional Instructions: Your exam was consistent with a strain of your neck, and biceps tendinitis. You have developed these conditions secondary to the repetitive, physical activities you perform at work. See home care instructions. Use the meloxicam as directed, this is an anti-inflammatory, take it with food. Use the methocarbamol, this is a muscle relaxant, as needed for additional pain. To note this medication will cause drowsiness, do not drive or operate machinery while taking the medication. You need to follow up with primary care, if your symptoms persist, you may require physical therapy. Prescriptions: New meloxicam 15 mg tablet 15 mg PO DAILY Qty: 7 0RF methocarbamol 750 mg tablet 1,500 mg PO TID PRN (Reason: pain) Qty: 20 0RF No Action amoxicillin 500 mg capsule 500 mg PO BID Qty: 20 0RF tramadol 50 mg tablet 50 mg PO BID PRN (Reason: pain) Qty: 14 0RF Afrin (oxymetazoline) 0.05 % mist 2 spray intranasal Q12H PRN (Reason: nasal congestion) 3 Days Qty: 15 0RF amoxicillin-pot clavulanate [Augmentin] 875-125 mg tablet 1 tab PO Q12H 10 Days Qty: 20 0RF naproxen 500 mg tablet 500 mg PO BID PRN (Reason: pain) Qty: 20 0RF oxycodone-acetaminophen [Percocet] 5-325 mg tablet 1 tab PO TID PRN (Reason: pain (scale score 7-10)) Qty: 9 0RF oxycodone-acetaminophen [Percocet] 5-325 mg tablet 1 tab PO Q4-6H PRN (Reason: pain) Qty: 14 0RF albuterol sulfate 90 mcg/actuation HFA aerosol inhaler 1 inh inhalation QID PRN (Reason: shortness of breath or wheezing) Qty: 8.5 0RF azithromycin 250 mg tablet See Rx Instructions .ROUTE .COMPLEX Qty: 6 0RF Rx Instructions: take 500 mg today (day 1), then 250 mg for 4 days (days 2-5) codeine-guaifenesin [Guaifenesin AC] 10-100 mg/5 mL liquid 5 ml PO Q6H PRN (Reason: cold symptoms) Qty: 120 0RF ketorolac 10 mg tablet 10 mg PO Q6H PRN (Reason: pain) 5 Days Qty: 20 0RF Rx Instructions: 1. Patient received Toradol here in the emergency room. 2. Please instruct patient to stop all other anti-inflammatories. cyclobenzaprine 5 mg tablet 5 mg PO TID PRN (Reason: muscle spasm) Qty: 6 0RF ondansetron 4 mg tablet,disintegrating 4 mg PO Q8H PRN (Reason: nausea and vomiting) Qty: 20 0RF azithromycin 250 mg tablet See Rx Instructions .ROUTE .COMPLEX Qty: 6 0RF Rx Instructions: For 250 mg dose pack: take 500 mg today (day 1), then 250 mg for 4 days (days 2-5) cyclobenzaprine 10 mg tablet 10 mg PO BEDTIME PRN (Reason: muscle spasm) Qty: 4 0RF prednisone 20 mg tablet 40 mg PO DAILY 5 Days Qty: 10 0RF albuterol sulfate [Ventolin HFA] 90 mcg/actuation HFA aerosol inhaler 2 puff inhalation Q4-6H PRN (Reason: wheezing) Qty: 8.5 0RF benzonatate 100 mg capsule 100 mg PO TID PRN (Reason: cough) Qty: 20 0RF ondansetron 4 mg tablet,disintegrating 4 mg PO Q8H PRN (Reason: nausea and vomiting) 3 Days Qty: 9 0RF loperamide 2 mg capsule 2 mg PO QID PRN (Reason: loose stool) 2 Days Qty: 8 0RF omeprazole 20 mg capsule,delayed release(DR/EC) 20 mg PO DAILY Qty: 30 0RF sumatriptan succinate 50 mg tablet See Rx Instructions .ROUTE .COMPLEX Qty: 10 0RF Rx Instructions: take 1 tab at onset of headache; if no relief may repeat 1 tab after at least 2 hrs; max = 4 tabs/24 hr Stand Alone Forms: Work/School Release Print Language: Taiwanese
[2024-07-26 18:13] VITALS: BP 131/88; PULSE 98; RESP 16; TEMP 36.7; O2SAT 98
== END 2024-07-26 18:14 | disposition home or self-care (01) ==
PROVIDERS: Emergency Provider Emergency Medicine
DX: M75.22 Bicipital tendinitis, left shoulder (principal); S16.1XXA Strain of muscle, fascia and tendon at neck level, initial encounter; X50.0XXA Overexertion from strenuous movement or load, initial encounter; Y93.89 Activity, other specified; Y92.9 Unspecified place or not applicable; Y99.0 Civilian activity done for income or pay
CPT/HCPCS: 73030; 99282; 99283

== ENCOUNTER 2024-11-09 15:12 | Emergency (ER) | payer SELFPAY ==
--- NOTE | ~2024-11-09 | XR_ITS ---
EXAMINATION: XR CHEST 1 VIEW HISTORY: ? Foreign body ingestion COMPARISON: Comparison is made with the prior examination dated 09/13/2022. FINDINGS: A single PA view of the chest is submitted. The lungs are expanded and clear. There is no pleural effusion, pneumothorax, or pulmonary vascular congestion. The heart is normal in size. The bones are intact. XR/XR chest 1V IMPRESSION: No acute cardiopulmonary abnormality. Electronically signed by: Devin Ramos MD 11/09/2024 03:35 PM EDT
--- NOTE | ~2024-11-09 | XR_ITS ---
EXAMINATION: XR ABDOMEN 1 VIEW (KUB) HISTORY: ? Foreign body ingestion COMPARISON: Comparison is made with the prior examination dated 06/08/2023. FINDINGS: Two supine views of the abdomen are submitted. The bowel gas pattern is unremarkable, without evidence of mechanical obstruction. There are phleboliths in the pelvis. There are no abnormal soft tissue masses. The bones are intact. No radiopaque foreign body is identified. XR/XR KUB IMPRESSION: Unremarkable bowel gas pattern. No radiopaque foreign body is identified. Electronically signed by: Devin Ramos MD 11/09/2024 03:36 PM EDT
[2024-11-09 15:19] VITALS: BP 129/72; PULSE 77; RESP 18; TEMP 37.5; O2SAT 99; BMI 23.0
--- NOTE | 2024-11-09 15:23 | ED_ITS ---
HPI - General Adult General Chief complaint: General Medical Stated complaint: swallowed plastic throat feels weird Time Seen by Provider: 11/09/24 15:41 Source: patient, RN notes reviewed and old records reviewed Mode of arrival: ambulatory Limitations: no limitations History of Present Illness ED Provider: Harry HPI narrative: 34-year-old male presents for evaluation of ?I think I swallowed plastic. ? Patient reports that a few hours ago he stopped at a local [employer] and grabbed a beverage. He reports that he was drinking and felt something in his mouth. He reports that he thought it was ?pulp and normal, so I kept drinking it. He reports that he then felt a larger piece in his mouth and he pulled out a piece of plastic. He states that it was ?like Saran wrap. ? He is unsure how much she swallowed, if he swallowed anything else. He reports a ?scratching sensation in my throat. ? Related Data Previous Rx's ?Medication ?Instructions ?Recorded oxymetazoline 0.05 % nasal mist 2 spray intranasal Q12H PRN nasal 07/05/20 (Afrin (oxymetazoline)) congestion 3 days #15 mL amoxicillin 500 mg capsule 500 mg PO BID #20 caps 07/09/20 tramadol 50 mg tablet 50 mg PO BID PRN pain #14 tabs 07/09/20 amoxicillin 875 mg-potassium 1 tab PO Q12H 10 days #20 tabs 09/24/20 clavulanate 125 mg tablet (Augmentin) naproxen 500 mg tablet 500 mg PO BID PRN pain #20 tabs 09/24/20 oxycodone-acetaminophen 5 mg-325 1 tab PO TID PRN pain (scale score 09/24/20 mg tablet (Percocet) 7-10) #9 tabs oxycodone-acetaminophen 5 mg-325 1 tab PO Q4-6H PRN pain #14 tabs 11/09/20 mg tablet (Percocet) albuterol sulfate 90 mcg/actuation 1 inh inhalation QID PRN shortness 08/23/21 aerosol inhaler of breath or wheezing #8.5 grams azithromycin 250 mg tablet See Rx Instructions PO .COMPLEX #6 08/23/21 tabs codeine 10 mg-guaifenesin 100 mg/5 5 ml PO Q6H PRN cold symptoms #120 08/23/21 mL oral liquid (Guaifenesin AC) mL ondansetron 4 mg disintegrating 4 mg PO Q8H PRN nausea and 10/30/21 tablet vomiting #20 tabs azithromycin 250 mg tablet See Rx Instructions PO .COMPLEX #6 01/18/22 tabs cyclobenzaprine 5 mg tablet 5 mg PO TID PRN muscle spasm #6 03/09/22 tabs ketorolac 10 mg tablet 10 mg PO Q6H PRN pain 5 days #20 03/09/22 tabs cyclobenzaprine 10 mg tablet 10 mg PO BEDTIME PRN muscle spasm 03/11/22 #4 tabs albuterol sulfate 90 mcg/actuation 2 puff inhalation Q4-6H PRN 09/09/22 aerosol inhaler (Ventolin HFA) wheezing #8.5 grams benzonatate 100 mg capsule 100 mg PO TID PRN cough #20 caps 09/09/22 prednisone 20 mg tablet 40 mg (2 x 20 mg) PO DAILY 5 days 09/09/22 #10 tabs loperamide 2 mg capsule 2 mg PO QID PRN loose stool 2 days 09/13/22 #8 caps ondansetron 4 mg disintegrating 4 mg PO Q8H PRN nausea and 09/13/22 tablet vomiting 3 days #9 tabs omeprazole 20 mg capsule,delayed 20 mg PO DAILY #30 caps 10/01/22 release sumatriptan succinate 50 mg tablet See Rx Instructions PO .COMPLEX 05/23/24 #10 tabs meloxicam 15 mg tablet 15 mg PO DAILY #7 tabs 07/26/24 methocarbamol 750 mg tablet 1,500 mg (2 x 750 mg) PO TID PRN 07/26/24 pain #20 tabs Allergies Allergy/AdvReac Type Severity Reaction Status Date / Time No Known Allergies Allergy Verified 11/09/24 15:23 Review of Systems Constitutional: Constitutional: Denies body ache(s), Denies chills and Denies headache(s) ENT: Denies headache(s) and Denies sore throat Cardiovascular: Cardiovascular: Denies chest pain and Denies dyspnea Respiratory: Respiratory: Denies dyspnea Neurologic: Denies headache(s) PMFSH Past Medical History Medical History Patient denies medical problems Family History Family History Other Family history non-contributory Social History Social History Household Members: Family Alcohol intake: current Alcohol intake frequency: a few times a month Patient Tobacco Use Status: Never used Tobacco Substance Use Type: Marijuana Advance Directives: No Advance Directives Information Provided: Yes Physical Exam ED Vital Signs: Vital Signs - 24 hr 11/09/24 15:19 11/09/24 16:24 Temperature 99.5 F 99.5 F Pulse Rate 77 77 Respiratory Rate 18 18 Blood Pressure 129/72 129/72 Pulse Oximetry 99 99 Oxygen Delivery Method Room Air Room Air BMI result Body Mass Index 23.0 Const General: healthy appearing, comfortable, no acute distress, alert and awake Nutritional Appearance: well nourished Orientation/consciousness: patient oriented x3 HENMT Head: Yes normocephalic and Yes atraumatic Throat: Yes posterior oropharynx normal Eyes Eyelids: Yes eyelids normal Conjunctivae: conjunctivae normal Sclerae: sclerae normal Corneas: corneas normal Pupils: Equal, round and reactive pupils present EOM: EOMs intact bilaterally Neck Neck: Yes full ROM Resp Effort & Inspection: normal respiratory effort, able to speak in complete sentences, no audible wheezes and not labored Auscultation: clear to auscultation bilaterally Cardio Rate: regular rate Rhythm: regular rhythm Skin General skin exam: elasticity normal Neuro General: patient oriented x3 Cranial nerves: Yes Equal, round and reactive pupils present and Yes Bilaterally intact EOM present Cognition (Neuro): normal cognition Extrem Other: Moving all extremities well without any obvious deformities Course Course Course Narrative: RME, this is a rapid medical exam performed by Jos Mcdonald please refer to primary provider for complete H&P- 34-year-old male presents for evaluation of I may have swallowed some plastic. ? Patient reports that he got a beverage fr om a [employer], he reports he started to feel something weird in his mouth but continue drinking of the beverage. He states that he felt a larger piece he took a piece of plastic that was stuck to his tongue. He was unsure if he swallowed anything more. He reports some irritation in his throat but denies any pain or difficulty. Airway is patent on exam. Plan for chest x- ray and KUB Medical Decision Making Medical Decision Making MDM Narrative: 34-year-old male presents for evaluation of ?I may have swallowed a piece of plastic. ? He has no evidence of airway compromise, I gave him a glass of water and he was able to drink it without any difficulty. X-ray shows no radiopaque foreign body, no bowel obstruction. Plan for discharge to follow-up with GI if necessary Differential Diagnosis Differential Diagnoses: The differential diagnosis associated with the presentation includes Foreign body ingestion Esophagitis Bowel obstruction Discharge Plan Discharge Clinical Impression: Foreign body ingestion Patient Disposition: Home, Self-Care Instructions: Upper Endoscopy (DC) Additional Instructions: Your x-rays did not show any dense foreign body in your chest or abdomen. You may follow-up with GI for an upper endoscopy if your symptoms persist Return for new or worsening symptoms Prescriptions: No Action amoxicillin 500 mg capsule 500 mg PO BID Qty: 20 0RF tramadol 50 mg tablet 50 mg PO BID PRN (Reason: pain) Qty: 14 0RF Afrin (oxymetazoline) 0.05 % mist 2 spray intranasal Q12H PRN (Reason: nasal congestion) 3 Days Qty: 15 0RF amoxicillin-pot clavulanate [Augmentin] 875-125 mg tablet 1 tab PO Q12H 10 Days Qty: 20 0RF naproxen 500 mg tablet 500 mg PO BID PRN (Reason: pain) Qty: 20 0RF oxycodone-acetaminophen [Percocet] 5-325 mg tablet 1 tab PO TID PRN (Reason: pain (scale score 7-10)) Qty: 9 0RF oxycodone-acetaminophen [Percocet] 5-325 mg tablet 1 tab PO Q4-6H PRN (Reason: pain) Qty: 14 0RF albuterol sulfate 90 mcg/actuation HFA aerosol inhaler 1 inh inhalation QID PRN (Reason: shortness of breath or wheezing) Qty: 8.5 0RF azithromycin 250 mg tablet See Rx Instructions .ROUTE .COMPLEX Qty: 6 0RF Rx Instructions: take 500 mg today (day 1), then 250 mg for 4 days (days 2-5) codeine-guaifenesin [Guaifenesin AC] 10-100 mg/5 mL liquid 5 ml PO Q6H PRN (Reason: cold symptoms) Qty: 120 0RF ketorolac 10 mg tablet 10 mg PO Q6H PRN (Reason: pain) 5 Days Qty: 20 0RF Rx Instructions: 1. Patient received Toradol here in the emergency room. 2. Please instruct patient to stop all other anti-inflammatories. cyclobenzaprine 5 mg tablet 5 mg PO TID PRN (Reason: muscle spasm) Qty: 6 0RF ondansetron 4 mg tablet,disintegrating 4 mg PO Q8H PRN (Reason: nausea and vomiting) Qty: 20 0RF azithromycin 250 mg tablet See Rx Instructions .ROUTE .COMPLEX Qty: 6 0RF Rx Instructions: For 250 mg dose pack: take 500 mg today (day 1), then 250 mg for 4 days (days 2-5) cyclobenzaprine 10 mg tablet 10 mg PO BEDTIME PRN (Reason: muscle spasm) Qty: 4 0RF prednisone 20 mg tablet 40 mg PO DAILY 5 Days Qty: 10 0RF albuterol sulfate [Ventolin HFA] 90 mcg/actuation HFA aerosol inhaler 2 puff inhalation Q4-6H PRN (Reason: wheezing) Qty: 8.5 0RF benzonatate 100 mg capsule 100 mg PO TID PRN (Reason: cough) Qty: 20 0RF ondansetron 4 mg tablet,disintegrating 4 mg PO Q8H PRN (Reason: nausea and vomiting) 3 Days Qty: 9 0RF loperamide 2 mg capsule 2 mg PO QID PRN (Reason: loose stool) 2 Days Qty: 8 0RF omeprazole 20 mg capsule,delayed release(DR/EC) 20 mg PO DAILY Qty: 30 0RF sumatriptan succinate 50 mg tablet See Rx Instructions .ROUTE .COMPLEX Qty: 10 0RF Rx Instructions: take 1 tab at onset of headache; if no relief may repeat 1 tab after at least 2 hrs; max = 4 tabs/24 hr meloxicam 15 mg tablet 15 mg PO DAILY Qty: 7 0RF methocarbamol 750 mg tablet 1,500 mg PO TID PRN (Reason: pain) Qty: 20 0RF Referrals: Devin Rodrigez MD [Physician] - (? foreign body ingestion. throat pain when swallowing) Stand Alone Forms: Work/School Release Interventions: ED Discharge Assessment Last Done: 11/09/24 16:24 Discharge Date/Time: 11/09/24 16:24 Print Language: Uzbek
[2024-11-09 16:24] VITALS: BP 129/72; PULSE 77; RESP 18; TEMP 37.5; O2SAT 99
== END 2024-11-09 16:24 | disposition home or self-care (01) ==
PROVIDERS: Emergency Provider Emergency Medicine
DX: T18.0XXA Foreign body in mouth, initial encounter (principal); W44.B9XA Other plastic object entering into or through a natural orifice, initial encounter; Y93.89 Activity, other specified; Y92.512 Supermarket, store or market as the place of occurrence of the external cause; Y99.9 Unspecified external cause status
CPT/HCPCS: 71045; 74018; 99282; 99283

== ENCOUNTER → 2024-11-09 15:24 | Outpatient (BNV) | payer MEDICAID, SELFPAY | PROVIDERS: Visit Provider Radiology Diagnostic Radiology | DX: T18.9XXA Foreign body of alimentary tract, part unspecified, initial encounter (principal) | CPT/HCPCS: 71045; 74018 ==

== ENCOUNTER 2025-05-05 02:07 | Emergency (ER) | payer SELFPAY ==
[2025-05-05 02:11] VITALS: BP 148/87; PULSE 90; RESP 16; TEMP 36.6; O2SAT 96; BMI 25.2
--- OUTSIDE RECORDS SUMMARY | 2025-05-05 03:05 | XMS_ITS ---
Author Name [facility] [place] Organization Unknown Care Team Organization Name Specialty Phone Email Start Date End Da te [facility] Primary Care 06/22/2022 04/02/20 24
--- NOTE | 2025-05-05 03:21 | ED_ITS ---
HPI - Head Injury General Chief complaint: Head Injury Stated complaint: head strike Time Seen by Provider: 05/05/25 03:21 History of Present Illness ED Provider: nohemi HPI Narrative: 35-year-old male with a head strike presents to the emergency department patient describes the injury as striking the head the superior aspect on a cabinet and at that moment felt a jerking or cracking type sensation in the neck. He has been ambulatory awake alert and comfortable since that time other than superior head discomfort where he has an abrasion. Denies focal neurologic symptoms has some soreness to bilateral paraspinal neck region Related Data Previous Rx's ?Medication ?Instructions ?Recorded oxymetazoline 0.05 % nasal mist 2 spray intranasal Q12 H PRN nasal 07/05/20 (Afrin (oxymetazoline)) congestion 3 days #15 mL amoxicillin 500 mg capsule 500 mg PO BID #20 caps 06/16 01/01 tramadol 50 mg tablet 50 mg PO BID PRN pain #14 ta bs 07/09/20 amoxicillin 875 mg-potassium 1 tab PO Q12H 10 days #20 tabs 09/24/20 clavulanate 125 mg tablet (Augmentin) naproxen 500 mg tablet 500 mg PO BID PRN pain #20 t abs 09/24/20 oxycodone-acetaminophen 5 mg-325 1 tab PO TID PRN pain (scale score 09/24/20 mg tablet (Percocet) 7-10) #9 tabs oxycodone-acetaminophen 5 mg-325 1 tab PO Q4-6H PRN pa in #14 tabs 11/09/20 mg tablet (Percocet) albuterol sulfate 90 mcg/actuation 1 inh inhalation QI D PRN shortness 08/23/21 aerosol inhaler of breath or wheezing #8.5 g paige azithromycin 250 mg tablet See Rx Instructions PO .COM PLEX #6 08/23/21 tabs codeine 10 mg-guaifenesin 100 mg/5 5 ml PO Q6H PRN col d symptoms #120 08/23/21 mL oral liquid (Guaifenesin AC) mL ondansetron 4 mg disintegrating 4 mg PO Q8H PRN nausea and 10/30/21 tablet vomiting #20 tabs azithromycin 250 mg tablet See Rx Instructions PO .COM PLEX #6 01/18/22 tabs cyclobenzaprine 5 mg tablet 5 mg PO TID PRN muscle spa sm #6 03/09/22 tabs ketorolac 10 mg tablet 10 mg PO Q6H PRN pain 5 days #20 03/09/22 tabs cyclobenzaprine 10 mg tablet 10 mg PO BEDTIME PRN musc le spasm 03/11/22 #4 tabs albuterol sulfate 90 mcg/actuation 2 puff inhalation Q 4-6H PRN 09/09/22 aerosol inhaler (Ventolin HFA) wheezing #8.5 grams benzonatate 100 mg capsule 100 mg PO TID PRN cough #20 caps 09/09/22 prednisone 20 mg tablet 40 mg (2 x 20 mg) PO DAILY 5 days 09/09/22 #10 tabs loperamide 2 mg capsule 2 mg PO QID PRN loose stool 2 days 09/13/22 #8 caps ondansetron 4 mg disintegrating 4 mg PO Q8H PRN nausea and 09/13/22 tablet vomiting 3 days #9 tabs omeprazole 20 mg capsule,delayed 20 mg PO DAILY #30 ca ps 10/01/22 release sumatriptan succinate 50 mg tablet See Rx Instructions PO .COMPLEX 05/23/24 #10 tabs meloxicam 15 mg tablet 15 mg PO DAILY #7 tabs 07/26 methocarbamol 750 mg tablet 1,500 mg (2 x 750 mg) PO T ID PRN 07/26/24 pain #20 tabs Allergies Allergy/AdvReac Type Severity Reaction Status Date / Time No Known Allergies Allergy Verified 05/05/25 02:16 [facility] Past Medical History Medical History Patient denies medical problems Family History Family History Other Family history non-contributory Social History Social History Household Members: Family Alcohol intake: current Alcohol intake frequency: a few times a week Patient Tobacco Use Status: Never used Tobacco Smoked in Last 30 Days: Yes Use of substances other than those prescribed or required for medical reasons: No Substance Use Type: Marijuana Advance Directives: No Advance Directives Information Provided: Yes Do you have a plan to hurt others: No Plan Physical Exam Exam: Exam: GENERAL: Well appearing. No apparent distress. Alert. HEAD/NECK: Normal to inspection. Neck supple. No cervical lymphadenopathy. EYES: Normal to inspection. Sclera non-icteric. ENMT: External nose normal. RESPIRATORY: Respiratory effort normal. Lungs clear to auscultation bilaterally. CARDIOVASCULAR: Regular rate. Normal rhythm. No murmur. No rubs. GI: Soft, non-tender, non-distended. No rebound or guarding. No masses palpable. No hepatosplenomegaly. SKIN: No jaundice. Mild superficial abrasion superior scalp no lacerations NEUROLOGICAL: Alert. PSYCHIATRIC: Alert. Appearance appropriate for situation. Attitude cooperative. OTHER: Comprehensive Neuro exam: Face symmetric, tongue midline, strong symmetric eye closure, pupils symmetric and reactive to light, intact sensation to the face throughout, intact strong face deviation and shoulder shrug. Sensation intact to light touch throughout * 5 out of 5 strength in bilateral upper extremities, 5 and 5 strength in lower extremities Vital Signs: Vital Signs: Last Vital Signs Temp 97.7 F 05/05/25 04:23 Pulse 79 05/05/25 04:23 Resp 16 05/05/25 04:23 BP 131/74 05/05/25 04:23 Pulse Ox 98 05/05/25 04:23 O2 Del Method Room Air 05/05/25 04:23 BMI result Body Mass Index 25.2 Medical Decision Making Medical Decision Making MDM Narrative: Medical Decision Makin-year-old healthy man on no anticoagulation with normal nonfocal neurologic exam after low mechanism head strike. No indication for imaging of the brain or cervical spine as he was cleared clinically. He is ambulatory awake alert non intoxicated and not on anticoagulation Skin care recommendations including bacitracin after thorough cleansing. Patient may have a concussion and he was counseled on this Preliminary Favored Differential Diagnosis: Concussion, abrasion, head strike, paraspinal neck spasm or strain among additional considered etiologies Testing Interpreted Independently: ?See below for details Radiology or Lab testing Results Reviewed: ?See below for details Consults: ?See below for details Independent Historians/External Chart Reviews: ?See below for details Social Determinants of Health Impacting MDM/Planning: ?See below for details Discharge Plan Discharge Clinical Impression: Concussion without loss of consciousness Patient Disposition: Home, Self-Care Instructions: Concussion (ED) Prescriptions: No Action amoxicillin 500 mg capsule 500 mg PO BID Qty: 20 0RF tramadol 50 mg tablet 50 mg PO BID PRN (Reason: pain) Qty: 14 0RF Afrin (oxymetazoline) 0.05 % mist 2 spray intranasal Q12H PRN (Reason: nasal congestion) 3 Days Qty: 15 0RF amoxicillin-pot clavulanate [Augmentin] 875-125 mg tablet 1 tab PO Q12H 10 Days Qty: 20 0RF naproxen 500 mg tablet 500 mg PO BID PRN (Reason: pain) Qty: 20 0RF oxycodone-acetaminophen [Percocet] 5-325 mg tablet 1 tab PO TID PRN (Reason: pain (scale score 7-10)) Qty: 9 0RF oxycodone-acetaminophen [Percocet] 5-325 mg tablet 1 tab PO Q4-6H PRN (Reason: pain) Qty: 14 0RF albuterol sulfate 90 mcg/actuation HFA aerosol inhaler 1 inh inhalation QID PRN (Reason: shortness of breath or wheezing) Qty: 8.5 0RF azithromycin 250 mg tablet See Rx Instructions .ROUTE .COMPLEX Qty: 6 0RF Rx Instructions: take 500 mg today (day 1), then 250 mg for 4 days (days 2-5) codeine-guaifenesin [Guaifenesin AC] 10-100 mg/5 mL liquid 5 ml PO Q6H PRN (Reason: cold symptoms) Qty: 120 0RF ketorolac 10 mg tablet 10 mg PO Q6H PRN (Reason: pain) 5 Days Qty: 20 0RF Rx Instructions: 1. Patient received Toradol here in the emergency room. 2. Please instruct patient to stop all other anti-inflammatories. cyclobenzaprine 5 mg tablet 5 mg PO TID PRN (Reason: muscle spasm) Qty: 6 0RF ondansetron 4 mg tablet,disintegrating 4 mg PO Q8H PRN (Reason: nausea and vomiting) Qty: 20 0RF azithromycin 250 mg tablet See Rx Instructions .ROUTE .COMPLEX Qty: 6 0RF Rx Instructions: For 250 mg dose pack: take 500 mg today (day 1), then 250 mg for 4 days (days 2-5) cyclobenzaprine 10 mg tablet 10 mg PO BEDTIME PRN (Reason: muscle spasm) Qty: 4 0RF prednisone 20 mg tablet 40 mg PO DAILY 5 Days Qty: 10 0RF albuterol sulfate [Ventolin HFA] 90 mcg/actuation HFA aerosol inhaler 2 puff inhalation Q4-6H PRN (Reason: wheezing) Qty: 8.5 0RF benzonatate 100 mg capsule 100 mg PO TID PRN (Reason: cough) Qty: 20 0RF ondansetron 4 mg tablet,disintegrating 4 mg PO Q8H PRN (Reason: nausea and vomiting) 3 Days Qty: 9 0RF loperamide 2 mg capsule 2 mg PO QID PRN (Reason: loose stool) 2 Days Qty: 8 0RF omeprazole 20 mg capsule,delayed release(DR/EC) 20 mg PO DAILY Qty: 30 0RF sumatriptan succinate 50 mg tablet See Rx Instructions .ROUTE .COMPLEX Qty: 10 0RF Rx Instructions: take 1 tab at onset of headache; if no relief may repeat 1 tab after at least 2 hrs; max = 4 tabs/24 hr meloxicam 15 mg tablet 15 mg PO DAILY Qty: 7 0RF methocarbamol 750 mg tablet 1,500 mg PO TID PRN (Reason: pain) Qty: 20 0RF Interventions: ED Discharge Assessment Last Done: 05/05/25 04:23 Discharge Date/Time: 05/05/25 04:25 Print Language: Maltese
[2025-05-05 04:19] VITALS: BP 131/74; PULSE 79; TEMP 36.5; O2SAT 98
[2025-05-05 04:23] VITALS: BP 131/74; PULSE 79; RESP 16; TEMP 36.5; O2SAT 98
== END 2025-05-05 04:25 | disposition home or self-care (01) ==
PROVIDERS: Emergency Provider Emergency Medicine
DX: S06.0X0A Concussion without loss of consciousness, initial encounter (principal); X58.XXXA Exposure to other specified factors, initial encounter; Y93.9 Activity, unspecified; Y92.9 Unspecified place or not applicable; Y99.8 Other external cause status
CPT/HCPCS: 99282; 99284